=== PATIENT | female | born 1935 | race Caucasian/White ===

== ENCOUNTER 2022-10-19 20:37 | Emergency (ER) | payer MEDICARE, SELFPAY ==
--- NOTE | ~2022-10-19 | XR_ITS ---
EXAMINATION: XR chest 2V DATE: 10/19/2022 21:43 INDICATION: Chest pain. TECHNIQUE: Frontal and lateral views of the chest were obtained on 3 radiographs. COMPARISON: Chest single view 04/18/2018 FINDINGS: There is no pneumonia, pleural effusion, or pneumothorax. Cardiomegaly is noted. IMPRESSION: 1. Cardiomegaly. Reviewed, dictated and finalized at location E. IMPRESSION: 1. Cardiomegaly.
--- NOTE | 2022-10-19 20:39 | ECG_ITS ---
Measurements Intervals [place] Rate: 86 P: [place]: 0 QRS: 30 QRSD: 81 T: 131 QT: 372 QTc: 445 Interpretive Statements ATRIAL FIBRILLATION NONSPECIFIC ST & T-WAVE ABNORMALITY ABNORMAL ECG NO PREVIOUS ECG AVAILABLE FOR COMPARISON Electronically Signed On 10-20-2022 11:59:08 CDT by Lisandro Coleman M.D.
[2022-10-19 20:51] VITALS: BP 150/66; PULSE 81; RESP 14; TEMP 36.4; O2SAT 98
[2022-10-19 21:13] LABS: Prothrombin Time 13.6 Seconds (11.1-14.7)
[2022-10-19 21:19] LABS: Alanine Aminotransferase 22 U/L (6-35); Albumin Level 4.3 g/dL (3.5-5.1); Alkaline Phosphatase 64 U/L (38-126); Anion Gap 7 mmol/L (8-16); Aspartate Amino Transferase 31 U/L (14-36); Bilirubin,Total 1.4 mg/dL (0.2-1.3); Blood Urea Nitrogen 27 mg/dL (7-17); Calcium 9.7 mg/dL (8.4-10.2); Carbon Dioxide 26 mmol/L (22-30); Chloride 104 mmol/L (98-107); Estimated Glomerular Filt Rate > 60; Glucose 106 mg/dL (65-110); Lipase 122 U/L (23-300); Sodium 137 mmol/L (137-145)
[2022-10-19 21:30] LABS: Troponin I < 0.012 ng/mL (0.000-0.034)
[2022-10-19 21:34] LABS: Basophils Absolute Auto 0.1 K/mm3 (0.0-0.1); Basophils Percent Auto 1.2 % (0.2-1.2); Eosinophils Absolute Auto 0.2 K/mm3 (0-0.3); Hematocrit 44.4 % (37.0-47.0); Hemoglobin 14.3 g/dL (12.0-15.0); Immature Granulocyte Absolute 0.01 K/mm3 (0.00-0.031); Immature Granulocyte Percent A 0.1 % (0-0.5); Lymphocytes Absolute Auto 2.11 K/mm3 (0.9-3.2); Lymphocytes Percent Auto 31.3 % (18.3-44.2); Mean Corpuscular HGB Conc 32.2 g/dl (32-36); Mean Corpuscular Hemoglobin 30.1 pg (26-34); Mean Corpuscular Volume 93.5 fl (80-100); Mean Platelet Volume 10.2 fl (7.4-10.4); Monocytes Absolute Auto 0.9 K/mm3 (0.1-0.6); Monocytes Percent Auto 13.1 % (2.6-8.5); Neutrophils Absolute Auto 3.5 K/mm3 (1.3-6.7); Neutrophils Percent Auto 51.3 % (45.5-73.1); Platelet Count Result 216 k/mm3 (150-375); Red Blood Count 4.75 M/mm3 (4.2-5.4); Red Cell Distribution Width 13.2 % (11.5-14.5); White Blood Count 6.7 K/mm3 (4.5-10.0)
[2022-10-19 23:59] VITALS: BP 143/81; PULSE 77; RESP 17; O2SAT 98
[2022-10-20 00:16] LABS: Troponin I < 0.012 ng/mL (0.000-0.034)
--- NOTE | 2022-10-20 00:43 | ED.GENADULT ---
HPI - General Adult General Chief complaint: Chest Pain Stated complaint: Chest pain Time Seen by Provider: 10/19/22 23:30 History of Present Illness HPI narrative: Patient 87-year-old female who presents the emergency department with chief complaint of chest discomfort. Patient reports that 11:00 today she started having some sharp type pains in her chest that are worse with inspiration. Patient reports she does have prior history of cardiac disease has had an NV in the past and is also had 3 stents placed. Patient reports this feels different than whenever she had cardiac disease reports he has been a little bit more active lately the patient does report that she has had no shortness of breath denies diaphoresis Related Data Home Medications Medication Instructions Recorded Confirmed amlodipine 5 mg tablet 5 mg PO DAILY 07/08/22 07/08/22 apixaban 2.5 mg tablet (Eliquis) 2.5 mg PO BID 07/08/22 07/08/22 losartan 50 mg tablet 50 mg PO DAILY 07/08/22 07/08/22 metoprolol succinate 50 mg 50 mg PO DAILY 07/08/22 07/08/22 tablet,extended release 24 hr [id number]-wwq-yitt 18 mg-FA 400 tablet PO 07/08/22 07/08/22 mcg-calcium 500 mg-vit K 50 mcg tablet (Women's Multivitamin) nitroglycerin 0.4 mg sublingual 0.4 mg sublingual Q5M PRN 07/08/22 07/08/22 tablet potassium chloride 10 mEq 10 meq PO BID 07/08/22 07/08/22 capsule,extended release timolol maleate 0.5 % eye drops 1 drp EACH EYE Q12H 07/08/22 07/08/22 Allergies Allergy/AdvReac Type Severity Reaction Status Date / Time amoxicillin Allergy Intermediate Unknown Verified 07/08/22 11:27 meperidine Allergy Intermediate Unknown Verified 06/04/18 19:37 propoxyphene Allergy Intermediate Unknown Verified 06/04/18 19:37 Sulfa (Sulfonamide Allergy Intermediate Unknown Verified 06/04/18 19:37 Antibiotics) acetaminophen AdvReac Severe Abdominal Verified 07/08/22 11:27 Pain atorvastatin AdvReac Severe Muscle Pain Verified 07/08/22 11:27 pravastatin AdvReac Severe Muscle Pain Verified 07/08/22 11:27 Review of Systems Review of Systems: A 10 system review of systems was completed on the patient and is negative except for what is stated in the HPI. Nursing and ancillary documentation was reviewed. [facility] Past Medical History Medical History AMI (acute myocardial infarction) Atrial fibrillation CAD (coronary artery disease) Multiple stents, seeing Dr. Erazo [facility] Glaucoma Hemiparesis due to recent stroke Hypertension Hypokalemia HUDSON (obstructive sleep apnea) Surgical History Surgical History History of coronary artery stent placement History of total bilateral knee replacement Social History Social History Smoking status: Never smoker Alcohol intake: never Substance use: never Substance use type: does not use Additional living arrangements comments: Living with her daughter at this time Exam Narrative: GENERAL: Well-appearing, well-nourished, and in no acute distress. HEAD: Normocephalic, atraumatic. EYES: PERRLA and EOMI. ENT: Nares clear, no rhinorrhea or epistaxis. Mucous membranes moist. NECK: Supple. CHEST: Clear to auscultation. No respiratory distress. Chest wall is tender to palpation on the left and right sternal borders HEART: Regular rate and rhythm. No murmur heard. Normal peripheral pulses. ABDOMEN: Soft, nontender, nondistended, normal active bowel sounds. EXTREMITIES: Normal range of motion. No edema. SKIN: Warm, dry, no rash. NEURO: No focal deficits. Alert and oriented x3. PSYCH: Normal mood and affect. Course Vital Signs Vital signs: Vital Signs Temperature 36.4 C 10/19/22 20:51 Pulse Rate 81 10/19/22 20:51 Respiratory Rate 14 10/19/22 20:51 Blood Pressure 150/66 H 10/19/22 20:51 Pulse Oximetry 98 09/23
[2022-10-20 01:06] VITALS: BP 143/95; PULSE 74; RESP 17; O2SAT 98
== END 2022-10-20 02:01 | disposition home or self-care (01) ==
PROVIDERS: Emergency Provider Emergency Medicine; PCP Family Medicine
DX: R07.9 Chest pain, unspecified (principal); I48.91 Unspecified atrial fibrillation; Z79.01 Long term (current) use of anticoagulants; I25.2 Old myocardial infarction; I25.10 Atherosclerotic heart disease of native coronary artery without angina pectoris; I10 Essential (primary) hypertension; G47.30 Sleep apnea, unspecified
CPT/HCPCS: 36415; 71046; 80053; 83690; 84484; 85025; 85610; 85730; 93005; 99284

== ENCOUNTER 2023-01-19 17:51 | Emergency (ER) | payer MEDICARE, SELFPAY ==
[2023-01-19] VITALS (9 sets, daily range): BP systolic 148–189; BP diastolic 86–94; PULSE 92–108; RESP 16–30; TEMP 37.1; O2SAT 94–98
--- NOTE | ~2023-01-19 | CT_ITS ---
EXAMINATION: CT abdomen pelvis w con DATE: 01/19/2023 20:35 INDICATION: llq abd pain TECHNIQUE: Computed tomography (CT) of the abdomen and pelvis was performed with 100 mL Omnipaque-350 intravenous contrast. Automated exposure control and iterative reconstruction technique were employe d. The dose-length product was 316.71 mGy-cm. COMPARISON: None. FINDINGS: Lower thorax: Cardiomegaly. Heavy coronary artery calcification. Liver: Normal. Biliary/Gallbladder: Gallbladder is normal. No bile duct dilation. Pancreas: 1.7 cm cystic lesion in the pancreatic body Spleen: Normal. Adrenals:No mass. Kidneys: Mild left perinephric stranding and subtle patchy renal parenchymal enhancement. No obstruct ing calculi. No suspicious masses. No hydronephrosis. Left ureteral urothelial hyperemia. GI tract: Mild distal esophageal and gastric wall edema. Short segment dilation of the distal sigmoid just proximal to the rectum, no wall thickening, surrounding inflammatory change, mass, or other ass ociated abnormality, likely a chronic finding. No small bowel dilation. Normal appendix. Diverticulos is without diverticulitis. Mesentery/Peritoneum: No ascites, mass, or free air. Retroperitoneum: No mass. Atherosclerotic abdominal aortic and/or arterial calcifications. Pelvis: Mild bladder wall edema. Absent uterus. Normal right ovary. Simple 3.6 cm left ovarian cyst. Soft Tissues: Soft tissues and body wall unremarkable. Bones: No acute osseous finding. IMPRESSION: Mild esophagitis/gastritis. Cystitis with ascending infection and likely pyelonephritis in the left. 1.7 cm cystic lesion in the pancreatic body. Consider follow-up CT pancreas in 2 years, depending on the patient's overall health and preferences, and only advised if they would be a surgical candidate. 3.6 cm left ovarian cyst. Recommend outpatient pelvic ultrasound for further characterization. Reviewed, dictated and finalized at location K. RLAY STITCHER IMPRESSION: Mild esophagitis/gastritis. Cystitis with ascending infection and likely pyelonephritis in the left. 1.7 cm cystic lesion in the pancreatic body. Consider follow-up CT pancreas in 2 years, depending on the patient's overall health and preferences, and only ad vised if they would be a surgical candidate. 3.6 cm left ovarian cyst. Recommend outpatient pelvic ultrasound for further ch aracterization.
[2023-01-19 18:57] LABS: Basophils Absolute Auto 0.1 K/mm3 (0.0-0.1); Basophils Percent Auto 0.5 % (0.2-1.2); Eosinophils Percent Auto 0.1 % (0-4.4); Hematocrit 46.2 % (37.0-47.0); Hemoglobin 15.1 g/dL (12.0-15.0); Immature Granulocyte Absolute 0.05 K/mm3 (0.00-0.031); Immature Granulocyte Percent A 0.3 % (0-0.5); Lymphocytes Absolute Auto 1.06 K/mm3 (0.9-3.2); Lymphocytes Percent Auto 6.8 % (18.3-44.2); Mean Corpuscular HGB Conc 32.7 g/dl (32-36); Mean Corpuscular Hemoglobin 29.6 pg (26-34); Mean Corpuscular Volume 90.6 fl (80-100); Monocytes Absolute Auto 1.4 K/mm3 (0.1-0.6); Monocytes Percent Auto 9.1 % (2.6-8.5); Neutrophils Absolute Auto 12.9 K/mm3 (1.3-6.7); Neutrophils Percent Auto 83.2 % (45.5-73.1); Platelet Count Result 219 k/mm3 (150-375); Red Cell Distribution Width 12.8 % (11.5-14.5); White Blood Count 15.6 K/mm3 (4.5-10.0)
[2023-01-19 19:12] LABS: Alanine Aminotransferase 19 U/L (6-35); Albumin Level 4.4 g/dL (3.5-5.1); Alkaline Phosphatase 88 U/L (38-126); Anion Gap 9 mmol/L (8-16); Aspartate Amino Transferase 31 U/L (14-36); Blood Urea Nitrogen 18 mg/dL (7-17); Calcium 9.8 mg/dL (8.4-10.2); Carbon Dioxide 26 mmol/L (22-30); Chloride 101 mmol/L (98-107); Estimated CRCL calculation 39 ml/min; Estimated Glomerular Filt Rate > 60; Glucose 125 mg/dL (65-110); Lipase 45 U/L (23-300); Potassium 3.9 mmol/L (3.4-5.0); Sodium 136 mmol/L (137-145)
--- NOTE | 2023-01-19 20:03 | ED.ABDPAIN ---
HPI - Abdominal Pain General Chief Complaint: Abdominal Pain Stated Complaint: abd pain Time Seen by Provider: 01/19/23 19:56 History of Present Illness HPI narrative: Pt presents with LLQ abdominal pain sicne last night. Pt denies fever or bloody stools. Pt had diverticulitis 30 yrs ago and this feels similar. Related Data Home Medications Medication Instructions Recorded Confirmed amlodipine 5 mg tablet 5 mg PO DAILY 07/08/22 07/08/22 apixaban 2.5 mg tablet (Eliquis) 2.5 mg PO BID 07/08/22 07/08/22 losartan 50 mg tablet 50 mg PO DAILY 07/08/22 07/08/22 metoprolol succinate 50 mg 50 mg PO DAILY 07/08/22 07/08/22 tablet,extended release 24 hr ciafxmqd-adi-omur 18 mg-FA 400 tablet PO 07/08/22 07/08/22 mcg-calcium 500 mg-vit K 50 mcg tablet (Women's Multivitamin) nitroglycerin 0.4 mg sublingual 0.4 mg sublingual Q5M PRN 07/08/22 07/08/22 tablet potassium chloride 10 mEq 10 meq PO BID 07/08/22 07/08/22 capsule,extended release timolol maleate 0.5 % eye drops 1 drp EACH EYE Q12H 07/08/22 07/08/22 Allergies Allergy/AdvReac Type Severity Reaction Status Date / Time amoxicillin Allergy Intermediate Unknown Verified 01/07/23 11:06 meperidine Allergy Intermediate Unknown Verified 01/07/23 11:06 propoxyphene Allergy Intermediate Unknown Verified 01/07/23 11:06 Sulfa (Sulfonamide Allergy Intermediate Unknown Verified 01/07/23 11:06 Antibiotics) acetaminophen AdvReac Severe Abdominal Verified 01/07/23 11:06 Pain atorvastatin AdvReac Severe Muscle Pain Verified 01/07/23 11:06 pravastatin AdvReac Severe Muscle Pain Verified 01/07/23 11:06 Review of Systems Review of Systems: All systems reviewed & are unremarkable except as noted in HPI and below PMFSH Past Medical History Medical History AMI (acute myocardial infarction) Atrial fibrillation CAD (coronary artery disease) Multiple stents, seeing Dr. Erazo [facility] Glaucoma Hemiparesis due to recent stroke Hypertension Hypokalemia HUDSON (obstructive sleep apnea) Surgical History Surgical History History of coronary artery stent placement History of total bilateral knee replacement Social History Social History (Updated 01/07/23 @ 10:57 by Jessica Castellanos MA) Smoking status: Never smoker Alcohol intake: never Substance use: never Substance use type: does not use Lack of Transportation: No Lack of Food: Never True Current Housing: I Have Housing Concerned About Future Housing: No Difficulty Paying Gas/Electric Bills: No Difficulty Paying for Meds: No Currently Unemployed: No Education: Decline to Answer Difficulty w/ Childcare or Family Care: Decline to Answer Living arrangements: with family Additional living arrangements comments: Living with her daughter at this time Occupation/Education: retired Spiritual care concerns: No Agree to blood products: Yes Exam Const: General: healthy appearing and no acute distress Nutritional Appearance: well nourished Orientation/consciousness: patient oriented x3 Limitations: no limitations Resp: Effort & Inspection: normal respiratory effort Auscultation: clear to auscultation bilaterally Cardio: Rate: regular rate Rhythm: regular rhythm GI: GI Palp: Yes Soft to palpation, Yes Tenderness to palpation present (GI) (llq), No Guarding due to palpation present (GI) and No Rigid due to palpation Auscultation: normal bowel sounds Skin: General skin exam: normal color Wounds: no wounds Neuro: General: patient oriented x3, moves all extremities and no focal motor deficits Cranial nerves: Yes Nystagmus not present Speech: normal speech Extrem: General: normal to inspection and no clubbing, cyanosis or edema Psych: Mental Status: mental status grossly normal Affect: normal affect Attitude: cooperative Course Vital Signs Vital signs: Vital Sign
[2023-01-19] MEDS: MORPHINE SULFATE (*CRX) 4 MG/ML INJ 2 MG IV PUSH (20:11)
[2023-01-19] MEDS: ONDANSETRON INJ 4 MG/2 ML VIAL IV PUSH (20:11)
[2023-01-19 20:37] LABS: Bacteria Urine 4+ /hpf; RBC Urine 51-100 /hpf (0-2); Squamous Epithelial Cell Urine Moderate /hpf (Few); WBC Clumps Urine Present /HPF; WBC Urine >100 /hpf
[2023-01-19 20:43] LABS: Appearance Urine Cloudy (Clear); Blood Urine 2+ (Negative); Color Urine Yellow (Yellow); Glucose Urine UA Negative (Negative); Ketones Urine 2+ mg/dL (Negative); Protein Urine 2+ mg/dL (Negative); Specific Grav Ur 1.025 (1.001-1.035); pH Urine 6.5 (5.0-9.0)
[2023-01-19 20:44] LABS: Bilirubin Urine Negative (Negative); Leukocyte Esterase Ur 1+ LEU/UL (Negative); Nitrate Urine Positive (Negative)
[2023-01-19 20:45] LABS: Add Urine Microscopic? YES
[2023-01-19 21:06] LABS: Influenza A QL RT-PCR Negative (Negative); Influenza B QL RT-PCR Negative (Negative); RSV RNA, RT-PCR Negative (Negative); SARS-CoV-2 RNA PCR Negative (Negative)
== END 2023-01-19 21:50 | disposition home or self-care (01) ==
PROVIDERS: Emergency Provider Emergency Medicine; PCP Family Medicine
DX: N30.00 Acute cystitis without hematuria (principal); N83.202 Unspecified ovarian cyst, left side; K86.2 Cyst of pancreas; Z20.822 Contact with and (suspected) exposure to COVID-19; I25.10 Atherosclerotic heart disease of native coronary artery without angina pectoris; I48.91 Unspecified atrial fibrillation; I10 Essential (primary) hypertension; G47.33 Obstructive sleep apnea (adult) (pediatric); Z95.5 Presence of coronary angioplasty implant and graft; Z96.653 Presence of artificial knee joint, bilateral; K20.90 Esophagitis, unspecified without bleeding; K29.70 Gastritis, unspecified, without bleeding
CPT/HCPCS: 36415; 74177; 80053; 81001; 83690; 85025; 87077; 87086; 87186; 87637; 96374; 96375; 99284; J2270; J2405; Q9967

== ENCOUNTER 2024-04-06 17:28 | Outpatient (CLI) | payer MEDICARE, SELFPAY ==
--- OUTSIDE RECORDS SUMMARY | 2024-04-06 17:32 | XMS_ITS | Encounter Summary ---
Author Organization [facility] Address [address] [place] [address] Care Team Providers Care Academic Services Coordinator Name Role Phone Evens Mattson MD Primary Care Provider Unavailab gege Vega MD, Robert Unavailable [phone] Janee Ahn ANP-BC Unavailable [phone] Tanvi Cordova NP Unavailable [phone] Wilbert Kimbrough MD Unavailable [phone] Spencer Nguyen MD Unavailable Unavailable Tahir WigginsC Unavailable [phone] Carmenza Fernandez MD Primary Care Provider [phone] Encounter Details Date Type Department Care Team (Latest Contact Info) Description 12/28/2017 Abstract [facility] Adelia Abarca MD Social History Tobacco Use Types Packs/Day Years Used Date Smoking Tobacco: Never Smokeless Tobacco: Never Alcohol Use Standard Drinks/Week Comments Yes 0 (1 standard drink = 0.6 oz pur e alcohol) Wine 1 or 2 times per week Comments Unknown Sex and Gender Information Value Date Recorded Sex Assigned at Not on file Legal Sex Female 7:08 PM CDT Gender Identity Not on file Sexual Orientation Not on file Occupation Industry Job Start Date Job End Date Retired Not on file Not on file Not on file Not on file Not on file Not on file Not on file documented as of this encounter Plan of Treatment Upcoming Encounters Date Type Department Care Team (Late st Contact Info) Description 04/14/2024 2:00 PM MOTOR POLARIZER Office Visit [facility]-[address] [address] Juan Luis Erazo MD [address] [facility] [address] [place] [address] documented as of this encounter Visit Diagnoses Not on filedocumented in this encounter Care Teams Academic Services Coordinator Relationship Specialty Start Date End Date Evens Mattson MD PCP - General INTERNAL MEDICINE 02/28/16 09/30/23 Carmenza Fernandez MD [address] [place] [address] PCP - General FAMILY PRACTICE 10/01/23 Luis Angel Moreno MD CARDIOVASCULAR DISEASE 02/28/16 Janee Ahn, ANP- [address] [facility] [address] [place] [address] NURSE PRACTITIONER 02/28/16 Tanvi Cordova NP [address] [facility] [address] [place] [address] NURSE PRACTITIONER 04/27/16 Wilbert Kimbrough MD [address] [facility] [address] [place] [address] CARDIOVASCULAR DISEASE 03/15/17 Spencer Nguyen MD [address] [facility] [address] [place] [address] EP Land [employer] Rent[employer] Manager CLINICAL CARDIAC ELECTROPHYSIOLOGY 03/22/17 Tahir Wiggins PA-C [address] [place] [address] Electrophysiology 03/22/17 documented as of this encounter
--- OUTSIDE RECORDS SUMMARY | 2024-04-06 17:32 | XMS_ITS | Continuity of Care Document ---
Author Organization [facility] Address [address] [place] [address] Phone Care Team Providers Care Scrap Piler Name Role Phone Jose Alonzo MD Unavailable Unavailable Allergies, Adverse Reactions, Alerts Substance Reaction Status Criticality MEPERIDINE HCL Active No Informatio n Sulfa (Sulfonamide Antibiotics) Active No Information amoxicillin Active No Information Medications Medication Instructions Dosage Effective Dates (start - stop) Status Comments Norvasc 5 mg tablet take 1 tablet by oral route every day 5 MG - Active Eliquis 2.5 mg tablet take 1 tablet by oral route 2 times every day 2.5 MG - Active Neurontin 100 mg capsule take 1 Capsule by oral route 2 times every day 100 MG - Active Neurontin 300 mg capsule take 1 capsule by oral route every bedtime 300 MG - Active avoid driving or operate machines nitroglycerin 0.[address] 1 tablet by sublingual route at the 1st sign of attack; may repeat every 5 min until relief; if pain persists after 3 tablets in 15 min, prompt medical attention is recommended 0.4 MG - Active vitamin A 10,000 unit capsule take 1 capsule by oral route every day [address]19 UNITS - Active Crestor 40 mg tablet take 1 tablet by oral route every day 40 MG - Active potassium chloride ER 20 mEq tablet,extended release take 1 tablet by oral route every day with food 20 MEQ - Active metoprolol succinate ER 50 mg tablet,extended release 24 hr take 1 tablet by oral route every day 50 MG - Active losartan 50 mg tablet take 1 tablet by oral route every day 50 MG - Active Procedures Procedure Date OFFICE/OUTPATIENT VISIT, [facility] Advance Directives Directive Yes / No Effective Date File Name No Information Encounters Encounter Description Practice Location Reason(s) For Visit Diagnoses Date Provider Providers Copied on Encounter [facility], [address], [place], [place], [id number], tel:[phone] [facility] No Information 1 Clinton Garcia. [address], [place], [place], [id number] , [place]. tel:[phone] OFFICE/OUTPA TIENT VISIT, [facility] [place], [facility], [address], [place], [place], [id number], tel:[phone] [facility] stroke1 (chief complaint) Afib1 (chief complaint) incontinen ce1 (chief complaint) HLP (chief complaint) neuropathy 1 (chief complaint) StrokeUrge incontinenceHyperli pidemiaEssential (primary) hypertensionInsomni aNeuropathyAtrial fibrillation 1 Clinton Garcia. [address], [place], [place], [id number] , [place]. tel:[phone] Family History Family Member Type Diagnosis Age At Onset No Information Payers Payer name Insurance type Covered constitution party ID Authoriza tion(s) No Information Social History Type Description Quantity Date Captured Comments Sex Female Smoking Status No Information Chief Complaint And Reason For Visit No Information Plan Of Treatment Date Type Action Status Referral Ordered: Physical Therapy (related to Stroke) ordered Referral Referred To: Physical Therapy Ordered: Referrals: Physical Therapy. 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 Pt ambulate with walker. Pt just moved in with her daughter locally from out of town and she wants to continue home PT and OT. Pt denies any speech difficulty Afib1 Pt has chronic a fib with history of CAD with stenting x 4. . Pt is on norvasc, metoprolol, crestor, losartan, eliquis. Pt sees cardiology. Pt denies any chest pain or sob or palpitation incontinence1 Pt has chronic u rge incontinence. Pt denies any stress incontinence. Pt denies any urinary symptoms Pt wears pad and diapers . HLP Pt has HLP. Pt t akes crestor .pt denies any myalgia neuropathy1 Pt has periphera l neuropathy with insomnia Pt takes neurontin TID which supposes to help her with insomnia as well. Pt states that it really has not helped much of her insomnia. Instructions Date Instruction Additional Infor mation No Information Assessments Type Assessment Date No Information
--- OUTSIDE RECORDS SUMMARY | 2024-04-06 17:32 | XMS_ITS | Encounter Summary ---
Author Organization [facility] Address [address] [place] [address] Care Team Providers Care Revenue Tax Specialist Name Role Phone Evens Mattson MD Primary Care Provider Unavailab gege Vega MD, Robert Unavailable [phone] Janee Ahn ANP-BC Unavailable [phone] Tanvi Cordova NP Unavailable [phone] Wilbert Kimbrough MD Unavailable [phone] Spencer Nguyen MD Unavailable Unavailable Tahir WigginsC Unavailable [phone] Carmenza Fernandez MD Primary Care Provider [phone] Encounter Details Date Type Department Care Team (Late st Contact Info) Description 05/08/2017 Abstract [facility] [address] [place] [address] , Generic Conversion, Social History Tobacco Use Types Packs/Day Years [...] st Contact Info) Description 04/14/2024 2:00 PM PLATE DRILLER Office Visit [facility] [address] Juan Luis Erazo MD 3 [facility] [address] [place] [address] documented as of this encounter Visit Diagnoses Not on filedocumented in this encounter Care Teams Revenue Tax Specialist Relationship Specialty Start Date End Date Evens Mattson MD PCP - General INTERNAL MEDICINE 02/28/16 09/30/23 Carmenza Fernandez MD [address] [place] [address] PCP - General FAMILY PRACTICE 10/01/23 Luis Angel Moreno MD CARDIOVASCULAR DISEASE 02/28/16 Janee Ahn, ANP- [address] [address] NURSE PRACTITIONER 02/28/16 Tanvi Cordova NP [address] [address] NURSE PRACTITIONER 04/27/16 Wilbert Kimbrough MD 619 [facility] [address] [address] CARDIOVASCULAR DISEASE 03/15/17 Spencer Nguyen MD [address] [address] EP Events And Promotions Assistant CLINICAL CARDIAC ELECTROPHYSIOLOGY 03/22/17 Tahir Wiggins PA-C [address] [place] [phone] Electrophysiology 03/22/17 documented as of this encounter
--- OUTSIDE RECORDS SUMMARY | 2024-04-06 17:32 | XMS_ITS | Continuity of Care Document ---
Author Organization [facility] Address [address] [facility] [address] [place] [address] Phone Care Team Providers Care Key Attendant Name Role Phone Chad PT, DPT, Sd Unavailable Unavailable Procedures Procedure Date Therapeutic Activities Therapeutic Exercise Therapeutic Activities Therapeutic Exercise Therapeutic Activities Therapeutic Exercise Therapeutic Activities Therapeutic Exercise PT Evaluation Low Complexity Therapeutic Activities Advance Directives Directive Yes / No Effective Date File Name No Information Encounters Encounter Description Practice Location Reason(s) For Visit Diagnoses Date Provider Providers Copied on Encounter [facility], [address] [address], [place], [place], [id number], tel:[phone] [facility] No Information Chad Beaver. . Referring Provider: Soniya Zurita [facility], [place], [address]. tel:[phone] [facility] [address] [place] [address], [id number], tel:[phone] [facility] No Information Chad Beaver. . Referring Provider: Jose Alonzo, [address] [facility] [address], [place], [address]. tel:[phone] [facility] [address] [address], [place], [place], [id number], tel:[phone] [facility] No Information Chad Beaver. . Referring Provider: Jose Alonzo, [address] [facility] [address], [place], [address]. tel:[phone] [address], [place], [place], [id number], tel:[phone] [facility] No Information Chad Beaver. . Referring Provider: Jose Alonzo, [address] [facility] [address], [place], [address]. tel:[phone] [facility] [address], [place], [place], [id number], tel:[phone] [facility] No Information Chad Beaver. . Referring Provider: Jose Alonzo, [address] [facility] [address], [place], [address]. tel:[phone] Family History Family Member Type Diagnosis Age At Onset No Information Payers Payer name Insurance type Covered republican ID Authorjimia iker(s) Medicare [place] MB [id number] [facility] [id number] Social History Type Description Quantity Date Captured [...]
--- OUTSIDE RECORDS SUMMARY | 2024-04-06 17:33 | XMS_ITS | Encounter Summary ---
Author Organization [facility] Address [address] [place] [address] Care Team Providers Care Network Design Architect Name Role Phone Evens Mattson MD Primary Care Provider Unavailab gege Vega MD, Robert Unavailable [phone] Janee Ahn ANP-BC Unavailable [phone] Tanvi Cordova NP Unavailable [phone] Wilbert Kimbrough MD Unavailable [phone] Spencer Nguyen MD Unavailable Unavailable Tahir WigginsC Unavailable [phone] Carmenza Fernandez MD Primary Care Provider [phone] Encounter Details Date Type Department Care Team (Late st Contact Info) Description 10/18/2014 Abstract [facility] [address] [place] [address] Luis Angel Moreno MD [address] [facility] [address] [place] [phone] Social History Tobacco Use Types Packs/Day Years Used Date Smoking Tobacco: Never Alcohol Use Standard Drinks/Week Comments [...] st Contact Info) Description 04/14/2024 2:00 PM SOLVENT STATION ATTENDANT Office Visit [facility] [address] Juan Luis Erazo MD 3 [facility] [address] [place] [address] documented as of this encounter Visit Diagnoses Not on filedocumented in this encounter Care Teams Network Design Architect Relationship Specialty Start Date End Date Evens Mattson MD PCP - General INTERNAL MEDICINE 02/28/16 09/30/23 Carmenza Fernandez MD [address] [place] [address] PCP - General FAMILY PRACTICE 10/01/23 Luis Angel Moreno MD CARDIOVASCULAR DISEASE 02/28/16 Janee Ahn, [facility]- [address] [address] NURSE PRACTITIONER 02/28/16 Tanvi Cordova NP 619 [facility] [address] [address] NURSE PRACTITIONER 04/27/16 Wilbert Kimbrough MD [address] [phone] CARDIOVASCULAR DISEASE 03/15/17 Spencer Nguyen MD [address] [facility] [address] [place] [address] EP Seo Associate CLINICAL CARDIAC ELECTROPHYSIOLOGY 03/22/17 Tahir Wiggins PA-C [address] [place] [phone] Electrophysiology 03/22/17 documented as of this encounter
--- OUTSIDE RECORDS SUMMARY | 2024-04-06 17:33 | XMS_ITS | Clinical Summary ---
Author Organization [facility] Address [address] [place] [address] Care Team Providers Care Binding Dyer Name Role Phone Carmenza Fernandez MD Primary Care Provider [phone] Allergies Active Allergy Reactions Criticality Noted Date Comments Amoxicillin Nausea & Vomiting Low 06/01/2023 Atorvastatin Muscle pain Medium 06/01/2023 Meperidine Nausea & Vomiting Low 06/01/2023 Propoxyphene Nausea & Vomiting Low 06/01/2023 Sulfa Itching Low 06/01/2023 Sertraline Dizziness Low 06/01/2023 Medications amLODIPine (NORVASC) 5 mg tablet Take 1 tablet (5 mg total) by mouth daily Active multivitamin-mi nerals-lutein tablet Take 1 tablet by mouth daily Active apixaban (ELIQUIS) 2.5 mg tablet Take 1 tablet (2.5 mg total) by mouth 2 (two) times a day Active losartan (COZAAR) 50 mg tablet Take 1 tablet (50 mg total) by mouth daily Active metoprolol XL (TOPROL-XL) 50 mg extended release tablet Take 1 tablet (50 mg total) by mouth daily Active nitroglycerin (NITROSTAT) 0.[address] 1 tablet (0.4 mg total) under the tongue every 5 (five) minutes as needed for chest pain Active potassium chloride ER 10 mEq CR tablet Take 1 tablet/capsule (10 mEq total) by mouth 2 (two) times a day Active rosuvastatin (CRESTOR) 10 mg tablet Take 1 tablet (10 mg total) by mouth every other day (patient takes Wednesday, Wednesday, Wednesday) Active timolol (TIMOPTIC) 0.5 % ophthalmic solution Administer 1 drop into both eyes nightly Active Active Problems No known active problems Encounters Date Type Department Care Team Description 03/06/2024 10:30 AM ACADEMIC COORDINATOR Office Visit [facility] [address] [place] [address] [address] [place] [address] Leena Logan MD Hypersomnia with sleep apnea (Primary Dx); HUDSON (obstructive sleep apnea); Paradoxical insomnia 03/06/[address] [facility] [address] [place] [address] [address] [place] [address] Leena Logan MD HUDSON (obstructive sleep apnea) (Primary Dx) from Last 3 Months Social History Tobacco Use Types Packs/Day Years Used Date Smoking Tobacco: Never Assessed Smokeless Tobacco: Never Tobacco Cessation:Counseling Given: Not Answered Personal Safety Answer Date Recorded Have you ever been in or are you currently in a harmful physical or emotional relationship or is someone making you feel afraid or unsafe? Denies 06/01/2023 Comments Unknown Sex and Gender Information Value Date Recorded Sex Assigned at Not on file Legal Sex Female 12:41 PM CDT Gender Identity Not on file Sexual Orientation Not on file Obstetrics History Last Filed Vital Signs Vital Sign Reading Time Taken Comments Blood Pressure 142/80 03/06/2024 10:45 AM ACADEMIC COORDINATOR Pulse 74 03/06/2024 10:45 AM ACADEMIC COORDINATOR Temperature 36.6 C (97.9 F) 06/01/2023 9:39 AM CDT Respiratory Rate 16 06/01/2023 12:00 PM CDT Oxygen Saturation 98% 03/06/2024 10:45 AM ACADEMIC COORDINATOR Inhaled Oxygen Concentration - - Weight 68 kg (149 lb 14.6 oz) 06/01/2023 9:39 AM CDT Height 157.5 cm (5' 2 ) 03/06/2024 10:45 AM ACADEMIC COORDINATOR Body Mass Index - - Plan of Treatment Health Maintenance Due Date Last Done Comments Depression Screening 1935 Fall Risk Assessment 1935 DTaP/Tdap/Td Vaccine (1 - Tdap) 06/20/1946 Hepatitis B Screening 06/20/1953 Well Visit 65+ 06/20/2000 Zoster Vaccine (2 of 2) 03/21/2021 01/24/2021 Pneumococcal vaccine 65+ (2 of 2 - PCV) 10/21/2021 10/21/2020 Covid-19 Vaccine (2023-2 5 season) 2023 12/31/2022, 01/04/2022, 12/07/2020, Additional history exists Influenza Vaccine (#1) 2023 12/17/2022, 2021 Insurance MEDICARE [facility] [address] [facility] MEDICARE SUPPLEMENT Care Teams Binding Dyer Relationship Specialty Start Date End Date Carmenza Fernandez MD PCP - General Family Medicine 06/01/23
--- OUTSIDE RECORDS SUMMARY | 2024-04-06 17:33 | XMS_ITS | Clinical Summary ---
Author Organization [facility] Address [address] [place] [address] Care Team Providers Care Birth Certificate Clerk Name Role Phone Tiffanie Vega MD, Robert Unavailable [phone] Janee Ahn ANP-BC Unavailable [phone] Tanvi Cordova NP Unavailable [phone] Wilbert Kimbrough MD Unavailable [phone] Spencer Nguyen MD Unavailable Unavailable Tahir Wiggins PA-C Unavailable [phone] Carmenza Fernandez MD Primary Care Provider [phone] Allergies Active Allergy Reactions Criticality Noted Date Comments Amoxicillin Unknown,Nausea and Vomiting,Nausea Only Low 02/07/2016 Atorvastatin Myalgias 02/07/2016 Propoxyphene N-Apap Unknown 02/07/2016 Demerol Unknown 02/07/2016 Hydrocodone Other (see comment) 07/25/2020 Nausea and vomiting Meperidine Nausea and Vomiting,Nausea Only,Other (see comment) Low 02/07/2016 Nausea and vomiting Mirtazapine Swelling 05/10/2023 Pravastatin Unknown 02/07/2016 Propoxyphene Nausea and Vomiting Low 06/01/2023 Ramelteon Swelling High 05/10/2023 Rosuvastatin Unknown 02/07/2016 Sertraline Dizziness Low 06/01/2023 Sulfa Antibiotics Unknown,Itching,Rash High 08/27/19 10 Itching, rash, diarrhea. Medications timolol (TIMOPTIC) 0.25 % ophthalmic solution Timoptic (timolol maleate) Drops 0.25%; as directed; 0; 0; 04-Nov-2011; Active 2 Active potassium chloride CR (MICRO-K) 10 MEQ CR capsule Take 1 capsule (10 mEq total) by mouth 2 (two) times daily. 2 Active Multiple Vitamins-Glynn als (CENTRUM SILVER 50+WOMEN OR) Take 1 tablet by mouth daily. Active nitroglycerin (NITROSTAT) 0.[address] 1 tablet (0.4 mg total) under the tongue every 5 (five) minutes as needed for Chest Pain (chest pain). Max 3 tabs, then call 911 25 tablet 1 3 Active losartan (COZAAR) 50 MG tablet TAKE 1 TABLET(50 MG) BY MOUTH DAILY 90 tablet 4 Active apixaban (ELIQUIS) 5 MG tablet Take 1 tablet (5 mg total) by mouth 2 (two) times daily. 180 tablet 3 4 025 Active amLODIPine (NORVASC) 5 MG tablet TAKE 1 TABLET(5 MG) BY MOUTH DAILY 90 tablet 2 4 Active rosuvastatin (CRESTOR) 10 MG tabletIndicati ons:Hyperlipid emia TAKE 1 TABLET(10 MG) BY MOUTH EVERY OTHER DAY 45 tablet 1 4 Active metoprolol succinate ER (TOPROL-XL) 50 MG 24 hr tablet TAKE 1 TABLET(50 MG) BY MOUTH DAILY 90 tablet 5 Active metoprolol succinate ER (TOPROL-XL) 50 MG 24 hr tablet TAKE 1 TABLET(50 MG) BY MOUTH DAILY 90 tablet 1 4 025 Discontinued Active Problems Problem Noted Date Diagnosed Date Subdural hematoma 01/09/2022 Paroxysmal atrial fibrillation ([facility]) 03/29/2020 CVA (cerebral vascular accident) ([facility]) 04/05/2018 Thrombus of left atrial appendage 04/05/2018 Sepsis ([facility]) 04/05/2018 UTI (urinary tract infection) 04/05/2018 Acute ischemic stroke ([facility]) 04/05/19 19 Intracranial hemorrhage, spo ntaneous intraparenchymal, associated with arterial infarction, acute ([facility]) 04/05/2018 Current use of skilled nursing anticoagulation 018 Shortness of breath 01/26/2017 Persistent atrial fibrillation 04/07/2016 Angina, class III 04/07/2016 Dyspnea on exertion 03/22/2016 S/P coronary artery stent placement 03/16/2016 NSTEMI (non-ST elevated myoc ardial infarction) ([facility]) 01/28/2007 CAD (coronary artery disease), grayling coronary a rtery Overview (02/07/2016): s/p stent Essential hypertension Dyslipidemia Sleep apnea Overview (02/07/2016): does not wear CPAP TIA (transient ischemic attack) Left arm pain Resolved Problems Problem Noted Date Diagnosed Date Resolved Date Statin intolerance 03/16/2016 0 Family History Relation Status Comments Brother 1 Alive CABG Brother 2 Child 1 Alive Child 2 Alive Child 3 Alive Child 4 Alive Child 5 Father (Age 48) CAD, [place] Maternal Grandfather (Age 87 ) Stroke Maternal Grandmother Stroke Mother (Age 70 ) Ovarian cance r Other Other Family history i s positive for coronary artery disease Paternal Grandfather (Age 75 ) Stroke Paternal Grandmother (Age 80 ) Stroke Sister (Age 31 ) Social History Tobacco Use Types Packs/Day Years Used Date Smoking Tobacco: Never Smokeless Tobacco: Never Tobacco Cessation:Counseling Given: Not Answered Alcohol Use Standard Drinks/Week Comments Yes 0 [...] file Not on file Not on file Last Filed Vital Signs Vital Sign Reading Time Taken Comments Blood Pressure 136/70 10/01/2023 12:51 PM CDT Pulse 70 10/01/2023 12:51 PM CDT Temperature 36.4 C (97.5 F) 03/29/2020 11:09 AM COAT EXAMINER Respiratory Rate 14 03/29/2020 11:09 AM COAT EXAMINER Oxygen Saturation 98% 10/01/2023 12:51 PM CDT Inhaled Oxygen Concentration - - Weight 64 kg (141 lb 3.2 oz) 10/01/2023 12:51 PM CDT Height 157.5 cm (5' 2 ) 10/01/2023 12:51 PM CDT Body Mass Index 25.83 10/01/2023 12:51 PM CDT Plan of Treatment Upcoming Encounters Date Type Department Care Team (Late st Contact Info) Description 04/14/2024 2:00 PM COAT EXAMINER Office Visit [facility] [address] Juan Luis Erazo MD 3 [facility] [address] [place] [address] Health Maintenance Due Date Last Done Comments DTaP, Tdap and Td Vaccines (1 - Tdap) 06/20/1954 Annual Medicare Wellness Visit 06/20/2000 RSV Immunization or 60+ Years (1 - 1-dose 75+ series) 06/20/2010 ASCVD LDL 04/06/2019 04/06/2018, 08/22, 09/02/2016, Additional history exists Pneumococcal Vaccine: 65+ Years (2 of 2 - PCV) 10/21/2021 10/21/2020, 08/02/2019 COVID-19 Vaccine ( - season) 2023 01/04/2022, 12/07/2020, 04/15/2020, Additional history exists Influenza Adult (#1) 2023 12/25/2021 PHQ-2 (Physician [place]) 02/23/2024 Zoster Vaccines Completed 01/04/2022, 1204/2020, 01/24/2021 Meningococcal B Vaccine Aged Out No l onger eligible based on patient's age to complete this topic Meningococcal Vaccine Aged Out No isaías jennifer eligible based on patient's age to complete this topic RSV Immunizations Under 20 Months Aged Out No longer eligible based on patient's age to complete this topic Procedures Procedure Name Priority Date/Time Associated Diagnosis Comments LIPID PANEL Routine 04/06/2018 2:23 AM COAT EXAMINER from Last 3 Months or Most Recently Relevant to Health Maintenance Results * LIPID PANEL (04/06/2018 2:23 AM COAT EXAMINER) CHOLESTEROL 173 MG/DL 04/06/2018 7:31 AM COAT EXAMINER [facility] Comment:DESIRABLE: <200 TRIGLYCERIDES 91 MG/DL 04/06/2018 7:31 AM [facility] Comment:<150 NORMAL HDL 60 >49 MG/DL 04/06/2018 7:31 AM [facility] LDL (CALCULATED) 95 MG/DL 04/06/19 7:31 AM [facility] Comment:<100 OPTIMAL VLDL CALCULATION 18 MG/DL 04/06/19 7:31 AM [facility] Comment:REFERENCE RANGE NOT ESTABLISHED CHOL/HDL RATIO 2.9 04/06/2018 7:31 AM [facility] Comment:REFERENCE RANGE NOT ESTABLISHED LDL/HDL 1.6 04/06/2018 7:31 AM [facility] Comment:REFERENCE RANGE NOT ESTABLISHED NON HDL CHOLESTEROL 113 MG/DL 04/06/2018 7:31 AM [facility] Comment:REFERENCE RANGE NOT ESTABLISHED 04/06/2018 2:23 AM COAT EXAMINER us Galdino Go MD LABORATORY Final Resul t [facility] [address] [place] [address], [id number] from Last 3 Months or Most Recently Relevant to Health Maintenance Insurance MEDICARE MEDICARE [facility] Advance Directives Documents on File Type Date Recorded Patient Baggage Agent Expl anation Advance Directives and Living Will 04/07/2018 1:14 PM 02/23/11 LIVING WILL Power of Double Needle Operator 04/07/2018 1:14 PM Advance Directives and Living Will 05/08/2017 ADVANCE DIRECTIVE Advance Directives and Living Will 05/08/2017 LIVING WILL Advance Directives and Living Will 05/08/2017 POWER OF LIBRARY DIRECTOR FO R HEALTH CARE Advance Directives and Living Will 05/08/2017 SHORT FORM POWER OF LIBRARY DIRECTOR Advance Directives and Living Will 03/15/2017 SHORT FORM POWER OF LIBRARY DIRECTOR Advance Directives and Living Will 03/15/2017 ADVANCE DIRECTIVE Advance Directives and Living Will 03/15/2017 LIVING WILL Advance Directives and Living Will 03/15/2017 POWER OF LIBRARY DIRECTOR FO R HEALTH CARE Advance Directives and Living Will 03/12/2017 ADVANCE DIRECTIVE Advance Directives and Living Will 03/12/2017 LIVING WILL Advance Directives and Living Will 03/12/2017 POWER OF LIBRARY DIRECTOR FO R HEALTH CARE Advance Directives and Living Will 03/12/2017 SHORT FORM POWER OF LIBRARY DIRECTOR Advance Directives and Living Will 03/12/2017 ADVANCE DIRECTIVE Advance Directives and Living Will 03/12/2017 LIVING WILL Advance Directives and Living Will 03/12/2017 POWER OF LIBRARY DIRECTOR FO R HEALTH CARE Advance Directives and Living Will 03/12/2017 SHORT FORM POWER OF LIBRARY DIRECTOR Advance Directives and Living Will 01/26/2017 ADVANCE DIRECTIVE Advance Directives and Living Will 01/26/2017 SHORT FORM POWER OF LIBRARY DIRECTOR Advance Directives and Living Will 01/26/2017 LIVING WILL Advance Directives and Living Will 01/26/2017 POWER OF LIBRARY DIRECTOR FO R HEALTH CARE Advance Directives and Living Will 11/17/2016 LIVING WILL Advance Directives and Living Will 11/17/2016 ADVANCE DIRECTIVE Advance Directives and Living Will 11/17/2016 POWER OF LIBRARY DIRECTOR FO R HEALTH CARE Advance Directives and Living Will 11/17/2016 SHORT FORM POWER OF LIBRARY DIRECTOR Advance Directives and Living Will 09/16/2016 ADVANCE DIRECTIVE Advance Directives and Living Will 09/16/2016 LIVING WILL Advance Directives and Living Will 09/16/2016 POWER OF LIBRARY DIRECTOR FO R HEALTH CARE Advance Directives and Living Will 09/02/2016 POWER OF LIBRARY DIRECTOR FO R HEALTH CARE Advance Directives and Living Will 09/02/2016 ADVANCE DIRECTIVE Advance Directives and Living Will 09/02/2016 LIVING WILL Advance Directives and Living Will 05/20/2016 LIVING WILL Advance Directives and Living Will 05/20/2016 ADVANCE DIRECTIVE Advance Directives and Living Will 05/20/2016 POWER OF LIBRARY DIRECTOR FO R HEALTH CARE Advance Directives and Living Will 04/16/2016 ADVANCE DIRECTIVE Advance Directives and Living Will 04/16/2016 LIVING WILL Advance Directives and Living Will 04/16/2016 POWER OF LIBRARY DIRECTOR FO R HEALTH CARE Advance Directives and Living Will 04/13/2016 ADVANCE DIRECTIVE Advance Directives and Living Will 04/02/2016 ADVANCE DIRECTIVE Advance Directives and Living Will 06/18/2015 ADVANCE DIRECTIVE Advance Directives and Living Will 10/23/2014 ADVANCE DIRECTIVE Advance Directives and Living Will 10/18/2014 ADVANCE DIRECTIVE Advance Directives and Living Will 10/20/2013 ADVANCE DIRECTIVE Advance Directives and Living Will 09/26/2013 ADVANCE DIRECTIVE Advance Directives and Living Will 11/25/2012 ADVANCE DIRECTIVE Advance Directives and Living Will 11/08/2012 ADVANCE DIRECTIVE Advance Directives and Living Will 10/31/2012 ADVANCE DIRECTIVE Advance Directives and Living Will 10/27/2012 ADVANCE DIRECTIVE Advance Directives and Living Will 10/14/2012 ADVANCE DIRECTIVE * DNR (Latest Code Status on File) Date Activated Date Inactivated Comments 04/05/2018 6:30 AM 04/16/2018 4:34 PM Care Teams Birth Certificate Clerk Relationship Specialty Start Date End Date Carmenza Fernandez MD [address] [place] [address] PCP - General FAMILY PRACTICE 10/01/23 Luis Angel Moreno MD CARDIOVASCULAR DISEASE 02/28/16 Janee Ahn, ANP- [address] [facility] [address] [place] [address] NURSE PRACTITIONER 02/28/16 Tanvi Cordova NP [address] [place] [address] [place] [address] NURSE PRACTITIONER 04/27/16 Wilbert Kimbrough MD [address] [place] [address] [place] [address] CARDIOVASCULAR DISEASE 03/15/17 Spencer Nguyen MD [address] [facility] [address] [place] [address] EP Set And Exhibit Designer CLINICAL CARDIAC ELECTROPHYSIOLOGY 03/22/17 Tahir Wiggins PA-C [address] [place] [address] Electrophysiology 03/22/17
--- OUTSIDE RECORDS SUMMARY | 2024-04-06 17:33 | XMS_ITS | Referral Summary ---
Author Organization [facility] Address [address] [place] [address] Care Team Providers Care Car Restorer Name Role Phone Carmenza Fernandez MD Primary Care Provider [phone] Encounters Date Type Department Care Team Description 03/06/2024 Orders Only [facility] [place] Neu[place] [address] [place] [address] Leena Logan MD HUDSON (obstructive sleep apnea) (Primary Dx) 03/06/2024 10:30 AM ART HISTORIAN Office Visit [facility] [place] Neurology [address] [place] [address] Leena Logan MD Hypersomnia with sleep apnea (Primary Dx); HUDSON (obstructive sleep apnea); Paradoxical insomnia from Last 3 Months Allergies Active Allergy Reactions Criticality Noted Date [...] Active Active Problems No known active problems Social History Tobacco Use Types Packs/Day Years [...] on file Sexual Orientation Not on file Last Filed Vital Signs Vital Sign Reading Time Taken Comments Blood Pressure 142/80 03/06/2024 10:45 AM ART HISTORIAN Pulse 74 03/06/2024 10:45 AM ART HISTORIAN Temperature 36.6 C (97.9 F) 06/01/2023 9:39 AM CDT Respiratory Rate 16 06/01/2023 12:00 PM CDT Oxygen Saturation 98% 03/06/2024 10:45 AM ART HISTORIAN Inhaled Oxygen Concentration - - Weight 68 kg (149 lb 14.6 oz) 06/01/2023 9:39 AM CDT Height 157.5 cm (5' 2 ) 03/06/2024 10:45 AM ART HISTORIAN Body Mass Index - - Plan of Treatment Not on file Insurance MEDICARE [facility] MEDICARE [facility] MEDICARE SUPPLEMENT Care Teams Car Restorer Relationship Specialty Start Date End Date Carmenza Fernandez MD PCP - General Family Medicine 06/01/23
[2024-04-07 07:44] LABS: Influenza A QL RT-PCR Negative (Negative); Influenza B QL RT-PCR Negative (Negative); RSV RNA, RT-PCR Positive (Negative); SARS-CoV-2 RNA PCR Negative (Negative)
== END 2024-04-06 17:29 | disposition home or self-care (01) ==
PROVIDERS: PCP Family Medicine; Visit Provider Family Medicine
DX: J06.9 Acute upper respiratory infection, unspecified (principal)
CPT/HCPCS: 87637

== ENCOUNTER 2024-04-27 06:23 | Inpatient (IN) | payer MEDICARE, SELFPAY ==
[2024-04-27] VITALS (16 sets, daily range): BP systolic 117–146; BP diastolic 52–73; PULSE 80–109; RESP 16–22; TEMP 36.4–36.8; O2SAT 97–99; BMI 24.3
--- NOTE | ~2024-04-27 | CT_ITS ---
CT Scan of the Chest without Contrast: Clinical Indication: Cough, shortness of breath Technique: Contiguous sections were acquired throughout the chest without intravenous contrast. Dose reduction technique was used on this scan by utilizing automated exposure control and iterative recon struction technique. The dose-length product (DLP) was 155.06 mGy-cm. Findings: There is no evidence of any significant mediastinal, hilar or axillary lymphadenopathy. There are ext ensive atherosclerotic calcifications of the aorta and coronary arteries. There is mild cardiomegaly. There is no evidence of pleural or pericardial effusion. Probable small groundglass nodules in the inferomedial right lower lobe, compatible with focal infect ious/inflammatory process. Left lung clear. Images through the upper abdomen reveal no abnormalities. Impression: Small grouped groundglass nodules in the inferomedial right lower lobe, compatible with focal infecti ous/inflammatory process. Reviewed, dictated and finalized at [facility]. LIFTER Impression: Small grouped groundglass nodules in the inferomedial right lower lobe, compati ble with focal infectious/inflammatory process.
--- NOTE | ~2024-04-27 | XR_ITS ---
Portable chest x-ray Comparison: 10/19/2022 Clinical History: Influenza Findings: Lungs are clear, without focal consolidation or pleural effusion. Cardiomediastinal silho uette is stable. Bones and soft tissues are unremarkable. Impression: Clear lungs. Reviewed, dictated and finalized at location . 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
[2024-04-27 06:58] LABS: Basophils Absolute Auto 0.1 K/mm3 (0.0-0.1); Basophils Percent Auto 0.6 % (0.2-1.2); Eosinophils Percent Auto 0.5 % (0-4.4); Hematocrit 46.5 % (37.0-47.0); Hemoglobin 15.5 g/dL (12.0-15.0); Immature Granulocyte Absolute 0.02 K/mm3 (0.00-0.031); Immature Granulocyte Percent A 0.2 % (0-0.5); Lymphocytes Absolute Auto 1.04 K/mm3 (0.9-3.2); Mean Corpuscular HGB Conc 33.3 g/dl (32-36); Mean Corpuscular Hemoglobin 29.7 pg (26-34); Mean Corpuscular Volume 89.1 fl (80-100); Mean Platelet Volume 10.2 fl (7.4-10.4); Monocytes Absolute Auto 1.1 K/mm3 (0.1-0.6); Monocytes Percent Auto 13.2 % (2.6-8.5); Neutrophils Absolute Auto 5.8 K/mm3 (1.3-6.7); Neutrophils Percent Auto 72.5 % (45.5-73.1); Platelet Count Result 172 k/mm3 (150-375); Red Blood Count 5.22 M/mm3 (4.2-5.4); Red Cell Distribution Width 14.4 % (11.5-14.5)
[2024-04-27 07:09] LABS: Alanine Aminotransferase 23 U/L (6-35); Albumin Level 4.1 g/dL (3.5-5.1); Alkaline Phosphatase 69 U/L (38-126); Anion Gap 12 mmol/L (4-12); Aspartate Amino Transferase 30 U/L (14-36); Bilirubin,Total 2.9 mg/dL (0.2-1.3); Blood Urea Nitrogen 17 mg/dL (7-17); Calcium 9.5 mg/dL (8.4-10.2); Carbon Dioxide 25 mmol/L (22-30); Chloride 99 mmol/L (98-107); Estimated CRCL calculation 39 ml/min; Estimated Glomerular Filt Rate > 60; Glucose 115 mg/dL (65-110); Lipase 148 U/L (23-300); Potassium 3.2 mmol/L (3.4-5.0); Sodium 136 mmol/L (137-145)
--- NOTE | 2024-04-27 07:15 | ED_ITS ---
HPI - General Adult General Chief complaint: Upper Respiratory Infection Stated complaint: flu-like sx Time Seen by Provider: 04/27/24 06:53 History of Present Illness HPI narrative: 88 Year old female with reported recent RSV and flu presented to the emergency department for evaluation for worsening shortness of breath and fatigue. Patient reports over the last 2 weeks she had been diagnosed with flu RSV. Patient reports she did have a persisting cough did start to feel improved but then worsened approximately 3 days ago. Patient states her cough has changed and patient states she does have increased generalized weakness. Patient does live in an assisted living but feels she is too weak to care for herself today. Related Data Home Medications ?Medication ?Instructions ?Recorded ?Confirmed ?Last Taken ?Type amlodipine 5 mg tablet 5 mg PO DAILY 07/08/22 04/27/24 04/27/24 09:00 History apixaban 2.5 mg tablet (Eliquis) 2.5 mg PO Q12H 07/08/22 04/27/24 04/27/24 09:00 History losartan 50 mg tablet 50 mg PO DAILY 07/08/22 04/27/24 04/27/24 09:00 History metoprolol succinate 50 mg 50 mg PO DAILY 07/08/22 04/27/24 04/27/24 09:00 History tablet,extended release 24 hr nitroglycerin 0.4 mg sublingual 0.4 mg sublingual Q5M PRN chest 07/08/22 04/27/24 Unknown History tablet pain timolol maleate 0.5 % eye drops 1 drp EACH EYE HS 07/08/22 04/27/24 04/26/24 History Allergies Allergy/AdvReac Type Severity Reaction Status Date / Time amoxicillin Allergy Intermediate Diarrhea Verified 04/27/24 11:18 meperidine Allergy Intermediate Nausea and Verified 04/27/24 11:18 Vomiting propoxyphene Allergy Intermediate Unknown Verified 04/27/24 11:18 Sulfa (Sulfonamide Allergy Intermediate Itching Verified 04/27/24 11:18 Antibiotics) atorvastatin AdvReac Severe Muscle Pain Verified 04/27/24 11:18 pravastatin AdvReac Severe Muscle Pain Verified 04/27/24 11:18 Review of Systems 2 Review of Systems: All systems reviewed & are unremarkable except as noted in HPI and below PMFSH Past Medical History Medical History RSV infection 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 Erazo [facility] AMI (acute myocardial infarction) HUDSON (obstructive sleep apnea) Hypertension Hemiparesis due to recent stroke Atrial fibrillation Surgical History Surgical History History of coronary artery stent placement History of total bilateral knee replacement Social History Social History Smoking status: Never smoker Alcohol intake: former Substance use: never Substance use type: does not use Do You Feel Safe in your Home?: Yes Lack of Transportation: No Lack of Food: Never True Current Housing: I Have Housing Concerned About Future Housing: No Difficulty Paying Gas/Electric Bills: No Difficulty Paying for Meds: No Currently Unemployed: No Education: Decline to Answer Difficulty w/ Childcare or Family Care: No Living arrangements: with family Additional living arrangements comments: Living with her daughter at this time Occupation/Education: retired Spiritual care concerns: No Agree to blood products: Yes Exam 2 Narrative: APPEARANCE: Tired appearing HEAD: normocephalic, atraumatic. EYES: PERRLA/EOMI, conjunctivae clear. NOSE: Normal no drainage EARS:TMS clear with good light reflex. THROAT: Pharynx clear, no exudate. NECK: Supple. No adenopathy, no masses. RESPIRATORY: Airway patent, respirations nonlabored. Clear to auscultation bilaterally, no rales, rhonchi, wheezing. CARDIOVASCULAR: Regular rate and rhythm without murmurs rubs or gallops. ABDOMINAL: Soft, nontender, nondistended, normal bowel sounds MUSCULOSKELETAL: Moves all extremities. Strength/ROM intact, No edema, No calf tenderness. NEURO: Alert. Cranial nerves II through XII intact. Good gait. Good coordination SKIN: Warm, dry. Normal Color Course Vital Signs Vital signs: Vital Signs Temperature 97.5 F L 04/27/24 06:23 Pulse Rate 102 H 04/27/24 06:23 Respiratory Rate 19 04/27/24 06:23 Blood Pressure 146/69 H 04/27/24 06:23 Pulse Oximetry 97 04/27/24 06:23 Oxygen Delivery Room Air 04/27/24 06:23 Temperature 98.0 F 04/27/24 14:00 Pulse Rate 80 04/27/24 14:00 Respiratory Rate 16 04/27/24 14:00 Blood Pressure 117/52 L 04/27/24 14:00 Pulse Oximetry 97 04/27/24 14:00 Oxygen Delivery Room Air 04/27/24 13:28 Medical Decision Making MDM Narrative Medical decision making narrative: 80-year-old female presents to the emergency department for evaluation for worsening fatigue cough and congestion. Patient was diagnosed with RSV proximal 2 weeks ago and diagnosed with influenza a approximately 5 days ago. Patient reports increasing weakness and feels she is unable to care for herself at her care facility. Chest x-ray was negative. Chest CT was concerning for underlying focal infection and patient was started on antibiotics for concern for underlying pneumonia. Patient is currently afebrile no leukocytosis hemoglobin of 15.5. No significant abnormalities on the patient's CMP. Case discussed with hospitalist patient was accepted for admission. Patient and family were comfortable the plan for admission. Differential Diagnosis Differential Diagnosis: COVID, RSV, influenza, pneumonia, superinfection, dehydration Vital Signs Vital Signs: Vital Signs Temperature 97.5 F L 04/27/24 06:23 Pulse Rate 102 H 04/27/24 06:23 Respiratory Rate 19 04/27/24 06:23 Blood Pressure 146/69 H 04/27/24 06:23 Pulse Oximetry 97 04/27/24 06:23 Oxygen Delivery Room Air 04/27/24 06:23 Temperature 98.0 F 04/27/24 14:00 Pulse Rate 80 04/27/24 14:00 Respiratory Rate 16 04/27/24 14:00 Blood Pressure 117/52 L 04/27/24 14:00 Pulse Oximetry 97 04/27/24 14:00 Oxygen Delivery Room Air 04/27/24 13:28 Lab Data Lab results reviewed: Yes I reviewed the patient's lab results. 04/27/24 06:54 04/27/24 06:54 Labs: Lab Results 04/27/24 04/27/24 04/27/24 Range/Units 06:54 07:07 08:44 WBC 8.0 (4.5-10.0) K/mm3 RBC 5.22 (4.2-5.4) M/mm3 Hgb 15.5 H (12.0-15.0) g/dL Hct 46.5 (37.0-47.0) % MCV 89.1 (80-100) fl MCH 29.7 (26-34) pg MCHC 33.3 (32-36) g/dl RDW 14.4 (11.5-14.5) % Plt Count 172 (150-375) k/mm3 MPV 10.2 (7.4-10.4) fl Immature Gran % (Auto) 0.2 (0-0.5) % Neut % (Auto) 72.5 (45.5-73.1) % Lymph % (Auto) 13.0 L (18.3-44.2) % Hayes % (Auto) 13.2 H (2.6-8.5) % Eos % (Auto) 0.5 (0-4.4) % Baso % (Auto) 0.6 (0.2-1.2) % Lymph # (Auto) 1.04 (0.9-3.2) K/mm3 Hayes # (Auto) 1.1 H (0.1-0.6) K/mm3 Eos # (Auto) 0.0 (0-0.3) K/mm3 Baso # (Auto) 0.1 (0.0-0.1) K/mm3 Abs Immat Gran (auto) 0.02 (0.00-0.031) K/mm3 Absolute Neuts (auto) 5.8 (1.3-6.7) K/mm3 Absolute Nucleated RBC 0.000 (0.0-0.012) K/mm3 Nucleated RBC % 0.0 (0.0-0.2) % Sodium 136 L (137-145) mmol/L Potassium 3.2 L (3.4-5.0) mmol/L Chloride 99 (98-107) mmol/L Carbon Dioxide 25 (22-30) mmol/L Anion Gap 12 (4-12) mmol/L BUN 17 (7-17) mg/dL Creatinine 0.68 L (0.7-1.0) mg/dL Estim Creat Clear Calc 39 ml/min Estimated GFR > 60 (59 - ) Glucose 115 H (65-110) mg/dL Calcium 9.5 (8.4-10.2) mg/dL Total Bilirubin 2.9 H (0.2-1.3) mg/dL AST 30 (14-36) U/L ALT 23 (6-35) U/L Alkaline Phosphatase 69 (38-126) U/L Total Protein 7.0 (6.3-8.2) g/dL Albumin 4.1 (3.5-5.1) g/dL Lipase 148 (23-300) U/L Urine Color Yellow (Yellow) Urine Appearance Cloudy H (Clear) Urine pH 5.5 (5.0-9.0) Ur Specific [place] 1.020 (1.001-1.035) Urine Protein Trace (Negative) mg/dL Urine Glucose (UA) Negative (Negative) mg/dL Urine Ketones 1+ H (Negative) mg/dL Ur Blood (Man) Negative (Negative) Urine Nitrate Negative (Negative) Urine Bilirubin Negative (Negative) Urine Urobilinogen 1.0 (<2.0) mg/dL Add Ur Microanalysis Reviewed Leukocyte Esterase Rfl Negative (Negative) ANA MARIA/UL Urine RBC 0-2 (0-2) /hpf Urine WBC 0-5 (0-3) /hpf Ur Squamous Epith Cells Occasional (Few) /hpf Urine Bacteria None seen /hpf Urine Casts 3-5 Urine Mucus Present /lpf Influenza A (RT-PCR) Positive A (Negative) Influenza B (RT-PCR) Negative (Negative) RSV (RT-PCR) Positive A (Negative) SARS-CoV-2 RNA (RT-PCR) Negative (Negative) Imaging Data Radiologist's impression: Impressions Chest X-Ray 04/27/24 06:51 Impression: Clear lungs. Chest CT 04/27/24 07:58 Impression: Small grouped groundglass nodules in the inferomedial right lower lobe, compatible with focal infectious/inflammatory process. Discharge Plan Discharge Clinical Impression: Respiratory syncytial virus (RSV), Influenza A, Weakness, Pneumonia Patient Disposition: Still a Patient Condition: Stable
--- OUTSIDE RECORDS SUMMARY | 2024-04-27 07:30 | XMS_ITS | Continuity of Care Document ---
Author Organization [facility] Address [address] [place] [address] Phone Care Team Providers Care Relay Adjuster Name Role Phone Chad PT, DPT, Sd Unavailable Unavailable Procedures Procedure Date Therapeutic Activities Therapeutic Exercise Therapeutic Activities Therapeutic Exercise Therapeutic Activities Therapeutic Exercise Therapeutic Activities Therapeutic Exercise PT Evaluation Low Complexity Therapeutic Activities Advance Directives Directive Yes / No Effective Date File Name No Information Encounters Encounter Description Practice Location Reason(s) For Visit Diagnoses Date Provider Providers Copied on Encounter [facility], [address] [address], [place], [place], [id number], tel:[phone] [facility] No Information Chad Beaver. . Referring Provider: Soniya Zurita [facility], [place], [address]. tel:[phone] [facility] [address], [id number], tel:[phone] [facility] No Information Chad Beaver. . Referring Provider: Jose Alonzo, [address] [facility] [address], [place], [address]. tel:[phone] [facility] [address] [place] [address], [place], [place], [id number], tel:[phone] [facility] No Information Chad Beaver. . Referring Provider: Jose Alonzo, [address] [facility] [address], [place], [address]. tel:[phone] [address], [place], [place], [id number], tel:[phone] [facility] No Information Chad Beaver. . Referring Provider: Jose Alonzo, [address] [facility] [address], [place], [address]. tel:[phone] [address] [facility] [address], [place], [place], [id number], tel:[phone] [facility] No Information Chad Beaver. . Referring Provider: Jose Alonzo, [address] [facility] [address], [place], [address]. tel:[phone] Family History Family Member Type Diagnosis Age At Onset No Information Payers Payer name Insurance type Covered constitution party ID Authorjimia iker(s) Medicare [place] MB [id number] [facility] [id number] Social History Type Description Quantity Date Captured [...]
--- OUTSIDE RECORDS SUMMARY | 2024-04-27 07:30 | XMS_ITS | Referral Summary ---
Author Organization [facility] Address [address] [place] [address] Care Team Providers Care Program Architect Name Role Phone Carmenza Fernandez MD Primary Care Provider [phone] Encounters Date Type Department Care Team Description 03/06/2024 Orders Only [facility] [place] [address] [place] [address] Leena Logan MD HUDSON (obstructive sleep apnea) (Primary Dx) 03/06/2024 10:30 AM SUBASSEMBLIES WIRER Office [place] [facility] [place] [address] [place] [address] Leena Logan MD Hypersomnia with sleep apnea [...] 1 drop into both eyes nightly Active zolpidem (AMBIEN) 10 mg tabletIndicatio ns:Sleep-Onset Insomnia Take 1 tablet (10 mg total) by mouth nightly as needed for sleep 5 tablet 5 05/20/19 25 Active Active Problems No known active problems [...] Comments Blood Pressure 142/80 03/06/2024 10:45 AM SUBASSEMBLIES WIRER Pulse 74 03/06/2024 10:45 AM SUBASSEMBLIES WIRER Temperature 36.6 C (97.9 F) 06/01/2023 9:39 AM CDT Respiratory Rate 16 06/01/2023 12:00 PM CDT Oxygen Saturation 98% 03/06/2024 10:45 AM SUBASSEMBLIES WIRER Inhaled Oxygen Concentration - - Weight 68 kg (149 lb 14.6 oz) 06/01/2023 9:39 AM CDT Height 157.5 cm (5' 2 ) 03/06/2024 10:45 AM SUBASSEMBLIES WIRER Body Mass Index - - Plan of Treatment Not on file Insurance MEDICARE [facility] MEDICARE Care Teams Program Architect Relationship Specialty Start Date End Date Carmenza Fernandez MD PCP - General Family Medicine 06/01/23
--- OUTSIDE RECORDS SUMMARY | 2024-04-27 07:30 | XMS_ITS | Encounter Summary ---
Author Organization [facility] Address [address] [place] [address] Care Team Providers Care Learning Analyst Name Role Phone Evens Mattson MD Primary Care Provider Unavailab gege Vega MD, Robert Unavailable [phone] Janee Ahn ANP-BC Unavailable [phone] Tanvi Cordova NP Unavailable [phone] Wilbert Kimbrough MD Unavailable [phone] Spencer Nguyen MD Unavailable Unavailable Tahir WigginsC Unavailable [phone] Carmenza Fernandez MD Primary Care Provider [phone] Encounter Details Date Type Department Care Team (Late st Contact Info) Description 05/08/2017 Abstract [facility] [address] [place] [address] , Generic Conversion, Social History Tobacco Use [...] Care Team (Late st Contact Info) Description 05/12/2024 11:45 AM CDT Office Visit [facility] [address] Juan Luis Erazo MD [address] [facility] [address] [place] [address] documented as of this encounter Visit Diagnoses Not on filedocumented in this encounter Care Teams Learning Analyst Relationship Specialty Start Date End Date Evens Mattson MD PCP - General INTERNAL MEDICINE 02/28/16 09/30/23 Carmenza Fernandez MD [address] [place] [address] PCP - General FAMILY PRACTICE 10/01/23 Luis Angel Moreno MD CARDIOVASCULAR DISEASE 02/28/16 Janee Ahn, ANP- [address] [facility] [address] [phone] NURSE PRACTITIONER 02/28/16 Tanvi Cordova NP [address] [address] NURSE PRACTITIONER 04/27/16 Wilbert Kimbrough MD 9 [facility] [address] [address] CARDIOVASCULAR DISEASE 03/15/17 Spencer Nguyen MD [address] [address] EP Broom Builder CLINICAL CARDIAC ELECTROPHYSIOLOGY 03/22/17 Tahir Wiggins PA-C [address] [place] [address] Electrophysiology 03/22/17 documented as of this encounter
--- OUTSIDE RECORDS SUMMARY | 2024-04-27 07:30 | XMS_ITS | Clinical Summary ---
Author Organization [facility] Address [address] [place] [address] Care Team Providers Care Assistant Account Manager Name Role Phone Carmenza Fernandez MD Primary Care Provider [phone] Allergies Active Allergy Reactions Criticality Noted Date [...] nightly as needed for sleep 5 tablet 05/20/19 25 Active Active Problems No known active problems Encounters Date Type Department Care Team Description 03/06/2024 10:30 AM DOUGHNUT MAKER Office [place] [facility] [address] [place] [address] [address] [place] [address] Leena Logan MD Hypersomnia with sleep apnea (Primary Dx); HUDSON (obstructive sleep apnea); Paradoxical insomnia 03/06/2024 Orders Only [facility] [place] [facility] [address] [place] [address] [address] [place] [address] Leena Logan MD HUDSON (obstructive sleep apnea) [...] Comments Blood Pressure 142/80 03/06/2024 10:45 AM DOUGHNUT MAKER Pulse 74 03/06/2024 10:45 AM DOUGHNUT MAKER Temperature 36.6 C (97.9 F) 06/01/2023 9:39 AM CDT Respiratory Rate 16 06/01/2023 12:00 PM CDT Oxygen Saturation 98% 03/06/2024 10:45 AM DOUGHNUT MAKER Inhaled Oxygen Concentration - - Weight 68 kg (149 lb 14.6 oz) 06/01/2023 9:39 AM CDT Height 157.5 cm (5' 2 ) 03/06/2024 10:45 AM DOUGHNUT MAKER Body Mass Index - - Plan of Treatment Health Maintenance Due Date Last Done Comments Depression Screening 1935 Fall Risk Assessment 1935 DTaP/Tdap/Td Vaccine (1 - Tdap) 06/20/1946 Hepatitis B Screening 06[birth year]20/1953 Well Visit 65+ 06/20/2000 Zoster Vaccine (2 of 2) 03/21/2021 01/24/2021 Pneumococcal vaccine 65+ (2 of 2 - PCV) 10/21/2021 10/21/2020 Covid-19 Vaccine (6 - 2023-2 5 season) 2023 12/31/2022, 01/04/2022, 12/07/2020, Additional history exists Influenza Vaccine (#1) 2023 12/17/2022, 2021 Insurance MEDICARE [facility] MEDICARE Care Teams Assistant Account Manager Relationship Specialty Start Date End Date Carmenza Fernandez MD PCP - General Family Medicine 06/01/23
--- OUTSIDE RECORDS SUMMARY | 2024-04-27 07:30 | XMS_ITS | Continuity of Care Document ---
Author Organization [facility] Address [address] [place] [address] Phone Care Team Providers Care Practice Physician Name Role Phone Jose Alonzo MD Unavailable Unavailable Allergies, Adverse Reactions, Alerts Substance Reaction Status Criticality MEPERIDINE HCL Active No Informatio n Sulfa (Sulfonamide Antibiotics) Active No Information amoxicillin Active No Information Medications Medication Instructions Dosage Effective Dates (start - stop) Status Comments Neurontin 300 mg capsule take 1 capsule [...] 1 capsule by oral route every day [address] UNITS - Active Crestor 40 mg tablet [...] route every day 50 MG - Active Neurontin 100 mg capsule take 1 Capsule by oral route 2 times every day 100 MG - Active Eliquis 2.5 mg tablet take 1 tablet by oral route 2 times every day 2.5 MG - Active Norvasc 5 mg tablet take 1 tablet by oral route every day 5 MG - Active Procedures Procedure Date OFFICE/OUTPATIENT VISIT, [facility] Advance Directives Directive Yes / No Effective Date File Name No Information Encounters Encounter Description Practice Location Reason(s) For Visit Diagnoses Date Provider Providers Copied on Encounter [facility], [address], [place], [place], [id number], tel:[phone] [facility] No Information 1 Clinton Garcia. [address], [place], [place], [id number] , [place]. tel:[phone] OFFICE/OUTPA TIENT VISIT, [facility], [address] [place], [place], [id number], tel:[phone] [facility] stroke1 (chief complaint) Afib1 (chief complaint) incontinen ce1 (chief complaint) HLP (chief complaint) neuropathy 1 (chief complaint) StrokeUrge incontinenceHyperli pidemiaEssential (primary) hypertensionInsomni aNeuropathyAtrial fibrillation 1 Clinton Garcia. [address] [facility] [place], [id number] , [place]. tel:[phone] Family History Family Member Type Diagnosis Age At Onset No Information Payers Payer name Insurance type Covered democrat ID Authoriza tion(s) No Information Social History [...] Date Complaint History Of Prese nt Illness neuropathy1 Pt has periphera l neuropathy with insomnia Pt takes neurontin TID which supposes to help her with insomnia as well. Pt states that it really has not helped much of her insomnia. HLP Pt has HLP. Pt t akjavier crestor .pt denies any myalgia incontinence1 Pt has chronic u rge incontinence. Pt denies any stress incontinence. Pt denies any urinary symptoms Pt wears pad and diapers . Afib1 Pt has chronic a fib with history of CAD with stenting x 4. . Pt is on norvasc, metoprolol, crestor, losartan, eliquis. Pt sees cardiology. 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 Pt ambulate with walker. Pt just moved in with her daughter locally from out of town and she wants to continue home PT and OT. Pt denies any speech difficulty Instructions Date Instruction Additional Infor mation No Information Assessments Type Assessment Date No Information
--- OUTSIDE RECORDS SUMMARY | 2024-04-27 07:30 | XMS_ITS | Encounter Summary ---
Author Organization [facility] Address [address] [place] [address] Care Team Providers Care Refractive Surgeon Name Role Phone Evens Mattson MD Primary Care Provider Unavailab gege Vega MD, Robert Unavailable [phone] Janee Ahn ANP-BC Unavailable [phone] Tanvi Cordova NP Unavailable [phone] Wilbert Kimbrough MD Unavailable [phone] Spencer Nguyen MD Unavailable Unavailable Tahir WigginsC Unavailable [phone] Carmenza Fernandez MD Primary Care Provider [phone] Encounter Details Date Type Department Care Team (Late st Contact Info) Description 10/18/2014 Abstract [facility] [address] [place] [address] Luis Angel Moreno MD [address] [facility] [address] [place] [address] Social History Tobacco Use Types Packs/Day [...] Description 05/12/2024 11:45 AM CDT Office Visit [facility] [address] Juan Luis Erazo MD [address] [facility] [address] [place] [address] documented as of this encounter Visit Diagnoses Not on filedocumented in this encounter Care Teams Refractive Surgeon Relationship Specialty Start Date End Date Evens Mattson MD PCP - General INTERNAL MEDICINE 02/28/16 09/30/23 Carmenza Fernandez MD [address] [place] [address] PCP - General FAMILY PRACTICE 10/01/23 Luis Angel Moreno MD CARDIOVASCULAR DISEASE 02/28/16 Janee Ahn, [facility]- [id number] [place] [address] NURSE PRACTITIONER 02/28/16 Tanvi Cordova NP [address] [facility] [address] [place] [address] NURSE PRACTITIONER 04/27/16 Wilbert Kimbrough MD [address] [facility] [address] [place] [address] CARDIOVASCULAR DISEASE 03/15/17 Spencer Nguyen MD [address] [facility] [address] [place] [address] EP Clearing Hand CLINICAL CARDIAC ELECTROPHYSIOLOGY 03/22/17 Tahir Wiggins PA-C [address] [place] [address] Electrophysiology 03/22/17 documented as of this encounter
--- OUTSIDE RECORDS SUMMARY | 2024-04-27 07:30 | XMS_ITS | Encounter Summary ---
Author Organization [facility] Address [address] [place] [address] Care Team Providers Care Agency Recruiter Name Role Phone Evens Mattson MD Primary Care Provider Unavailab gege Vega MD, Robert Unavailable [phone] Janee Ahn ANP-BC Unavailable [phone] Tanvi Cordova NP Unavailable [phone] Wilbert Kimbrough MD Unavailable [phone] Spencer Nguyen MD Unavailable Unavailable Tahir WigginsC Unavailable [phone] Carmenza Fernandez MD Primary Care Provider [phone] Encounter Details Date Type Department Care Team (Latest Contact Info) Description 12/28/2017 Abstract [facility] Adelia Abarca MD Social History [...] Description 05/12/2024 11:45 AM CDT Office Visit [facility] [address] Juan Luis Erazo MD 3 [facility] [address] [place] [phone] documented as of this encounter Visit Diagnoses Not on filedocumented in this encounter Care Teams Agency Recruiter Relationship Specialty Start Date End Date Evens Mattson MD PCP - General INTERNAL MEDICINE 02/28/16 09/30/23 Carmenza Fernandez MD [address] [place] [address] PCP - General FAMILY PRACTICE 10/01/23 Luis Angel Moreno MD CARDIOVASCULAR DISEASE 02/28/16 Janee Ahn, ANP- [address] [facility] [address] [place] [address] NURSE PRACTITIONER 02/28/16 Tanvi Cordova NP [address] [facility] [address] [place] [address] NURSE PRACTITIONER 04/27/16 Wilbert Kimbrough MD [address] [facility] [address] [place] [address] CARDIOVASCULAR DISEASE 03/15/17 Spencer Nguyen MD [address] [facility] [address] [place] [address] EP Shuttle Veneering Supervisor CLINICAL CARDIAC ELECTROPHYSIOLOGY 03/22/17 Tahir Wiggins PA-C [address] [place] [address] Electrophysiology 03/22/17 documented as of this encounter
--- OUTSIDE RECORDS SUMMARY | 2024-04-27 07:30 | XMS_ITS | Clinical Summary ---
Author Organization [facility] Address [address] [place] [address] Care Team Providers Care Plastics Plater Name Role Phone Tiffanie Vega MD, Robert Unavailable [phone] Janee Ahn ANP-BC Unavailable [phone] Tanvi Cordova NP Unavailable [phone] Wilbert Kimbrough MD Unavailable [phone] Spencer Nguyen MD Unavailable Unavailable Tahir Wiggins PA-C Unavailable [phone] Carmenza Fernandez MD Primary Care Provider [phone] Allergies Active Allergy Reactions Criticality Noted Date [...] 2 (two) times daily. 2 Active Multiple Vitamins-[place] als (CENTRUM SILVER 50+WOMEN OR) Take 1 [...] Date Subdural hematoma 01/09/2022 Paroxysmal atrial fibrillation ([facility]) 03/29/2020 CVA (cerebral vascular accident) ([facility]) 04/05/2018 Thrombus of left atrial appendage 04/05/2018 Sepsis ([facility]) 04/05/2018 UTI (urinary tract infection) 04/05/2018 Acute ischemic stroke ([facility]) 04/05/19 19 Intracranial hemorrhage, spo ntaneous intraparenchymal, associated with arterial infarction, acute ([facility]) 04/05/2018 Current use of halfway anticoagulation 018 Shortness of breath 01/26/2017 Persistent atrial fibrillation 04/07/2016 Angina, class III 04/07/2016 Dyspnea on exertion 03/22/2016 S/P coronary artery stent placement 03/16/2016 NSTEMI (non-ST elevated myoc ardial infarction) ([facility]) 01/28/2007 CAD (coronary artery disease), [place] coronary a rtery Overview (02/07/2016): s/p stent [...] Alive Child 5 Father (Age 48) CAD, [place] Maternal Grandfather (Age 87 ) Stroke Maternal [...] 36.4 C (97.5 F) 03/29/2020 11:09 AM RECYCLING CREW SUPERVISOR Respiratory Rate 14 03/29/2020 11:09 AM RECYCLING CREW SUPERVISOR Oxygen Saturation 98% 10/01/2023 12:51 PM CDT Inhaled Oxygen Concentration - - Weight 64 kg (141 lb 3.2 oz) 10/01/2023 12:51 PM CDT Height 157.5 cm (5' 2 ) 10/01/2023 12:51 PM CDT Body Mass Index 25.83 10/01/2023 12:51 PM CDT Plan of Treatment Upcoming Encounters Date Type Department Care Team (Late st Contact Info) Description 05/12/2024 11:45 AM CDT Office Visit [facility] [address] Juan Luis Erazo MD 3 [facility] [address] [place] [phone] Health Maintenance Due Date Last Done [...] Influenza Adult (#1) 2023 12/25/2021 PHQ-2 (Physician Quinault) 02/23/2024 Zoster Vaccines Completed 01/04/2022, 1204/2020, 01/24/2021 [...] Comments LIPID PANEL Routine 04/06/2018 2:23 AM RECYCLING CREW SUPERVISOR from Last 3 Months or Most Recently Relevant to Health Maintenance Results * LIPID PANEL (04/06/2018 2:23 AM RECYCLING CREW SUPERVISOR) CHOLESTEROL 173 MG/DL 04/06/2018 7:31 AM RECYCLING CREW SUPERVISOR [facility] Comment:DESIRABLE: <200 TRIGLYCERIDES 91 MG/DL 04/06/2018 7:31 AM RECYCLING CREW SUPERVISOR [facility] Comment:<150 NORMAL HDL 60 >49 MG/DL 04/06/2018 7:31 AM [facility] LDL (CALCULATED) 95 MG/DL 04/06/19 7:31 AM [facility] Comment:<100 OPTIMAL VLDL CALCULATION 18 MG/DL 04/06/19 7:31 AM [facility] Comment:REFERENCE RANGE NOT ESTABLISHED CHOL/HDL RATIO 2.9 04/06/2018 7:31 AM [facility] Comment:REFERENCE RANGE NOT ESTABLISHED LDL/HDL 1.6 04/06/2018 7:31 AM [facility] Comment:REFERENCE RANGE NOT ESTABLISHED NON HDL CHOLESTEROL 113 MG/DL 04/06/2018 7:31 AM [facility] Comment:REFERENCE RANGE NOT ESTABLISHED 04/06/2018 2:23 AM RECYCLING CREW SUPERVISOR us Galdino Go MD LABORATORY Final Resul t [facility] [address] [place] [address], [id number] from Last 3 Months or Most Recently Relevant to Health Maintenance Insurance MEDICARE MEDICARE [facility] Advance Directives Documents on File Type Date Recorded Patient Maintenance Department Technician Expl anation Advance Directives and Living Will 04/07/2018 1:14 PM 02/23/11 LIVING WILL Power of Long Winder Tender 04/07/2018 1:14 PM Advance Directives and Living Will 05/08/2017 ADVANCE DIRECTIVE Advance Directives and Living Will 05/08/2017 LIVING WILL Advance Directives and Living Will 05/08/2017 POWER OF BENEFITS PROCESSOR R HEALTH CARE Advance Directives and Living Will 05/08/2017 SHORT FORM POWER OF BENEFITS PROCESSOR Advance Directives and Living Will 03/15/2017 SHORT FORM POWER OF BENEFITS PROCESSOR Advance Directives and Living Will 03/15/2017 ADVANCE DIRECTIVE Advance Directives and Living Will 03/15/2017 LIVING WILL Advance Directives and Living Will 03/15/2017 POWER OF BENEFITS PROCESSOR FO R HEALTH CARE Advance Directives and Living Will 03/12/2017 ADVANCE DIRECTIVE Advance Directives and Living Will 03/12/2017 LIVING WILL Advance Directives and Living Will 03/12/2017 POWER OF BENEFITS PROCESSOR FO R HEALTH CARE Advance Directives and Living Will 03/12/2017 SHORT FORM POWER OF BENEFITS PROCESSOR Advance Directives and Living Will 03/12/2017 ADVANCE DIRECTIVE Advance Directives and Living Will 03/12/2017 LIVING WILL Advance Directives and Living Will 03/12/2017 POWER OF BENEFITS PROCESSOR FO R HEALTH CARE Advance Directives and Living Will 03/12/2017 SHORT FORM POWER OF BENEFITS PROCESSOR Advance Directives and Living Will 01/26/2017 ADVANCE DIRECTIVE Advance Directives and Living Will 01/26/2017 SHORT FORM POWER OF BENEFITS PROCESSOR Advance Directives and Living Will 01/26/2017 LIVING WILL Advance Directives and Living Will 01/26/2017 POWER OF BENEFITS PROCESSOR FO R HEALTH CARE Advance Directives and Living Will 11/17/2016 LIVING WILL Advance Directives and Living Will 11/17/2016 ADVANCE DIRECTIVE Advance Directives and Living Will 11/17/2016 POWER OF BENEFITS PROCESSOR FO R HEALTH CARE Advance Directives and Living Will 11/17/2016 SHORT FORM POWER OF BENEFITS PROCESSOR Advance Directives and Living Will 09/16/2016 ADVANCE DIRECTIVE Advance Directives and Living Will 09/16/2016 LIVING WILL Advance Directives and Living Will 09/16/2016 POWER OF BENEFITS PROCESSOR FO R HEALTH CARE Advance Directives and Living Will 09/02/2016 POWER OF BENEFITS PROCESSOR FO R HEALTH CARE Advance Directives and Living Will 09/02/2016 ADVANCE DIRECTIVE Advance Directives and Living Will 09/02/2016 LIVING WILL Advance Directives and Living Will 05/20/2016 LIVING WILL Advance Directives and Living Will 05/20/2016 ADVANCE DIRECTIVE Advance Directives and Living Will 05/20/2016 POWER OF BENEFITS PROCESSOR FO R HEALTH CARE Advance Directives and Living Will 04/16/2016 ADVANCE DIRECTIVE Advance Directives and Living Will 04/16/2016 LIVING WILL Advance Directives and Living Will 04/16/2016 POWER OF BENEFITS PROCESSOR FO R HEALTH CARE Advance Directives and [...] 6:30 AM 04/16/2018 4:34 PM Care Teams Plastics Plater Relationship Specialty Start Date End Date Carmenza Fernandez MD [address] [place] [address] PCP - General FAMILY PRACTICE 10/01/23 Luis Angel Moreno MD CARDIOVASCULAR DISEASE 02/28/16 Janee Ahn, ANP- [id number] [place] [address] NURSE PRACTITIONER 02/28/16 Tanvi Cordova NP [address] [facility] [address] [place] [address] NURSE PRACTITIONER 04/27/16 Wilbert Kimbrough MD [address] [facility] [address] [place] [address] CARDIOVASCULAR DISEASE 03/15/17 Spencer Nguyen MD [address] [facility] [address] [place] [address] EP Sulfur Burner CLINICAL CARDIAC ELECTROPHYSIOLOGY 03/22/17 Tahir Wiggins PA-C [address] [place] [phone] Electrophysiology 03/22/17
[2024-04-27] MEDS: ALBUTEROL SULFATE NEB 2.5 MG/3 ML INH INHALATION ×3 (07:31→20:27)
[2024-04-27 07:47] LABS: Influenza A QL RT-PCR Positive (Negative); Influenza B QL RT-PCR Negative (Negative); RSV RNA, RT-PCR Positive (Negative); SARS-CoV-2 RNA PCR Negative (Negative)
[2024-04-27 09:16] LABS: Add Urine Microscopic? YES; Appearance Urine Cloudy (Clear); Bacteria Urine None Seen /hpf; Bilirubin Urine Negative (Negative); Blood Urine Negative (Negative); Color Urine Yellow (Yellow); Glucose Urine UA Negative (Negative); Ketones Urine 1+ mg/dL (Negative); Leukocyte Esterase Ur Negative LEU/UL (Negative); Mucus Urine Present /lpf; Need Manual Microscopic Reviewed; Nitrate Urine Negative (Negative); Protein Urine Trace mg/dL (Negative); RBC Urine 0-2 /hpf (0-2); Squamous Epithelial Cell Urine Occasional /hpf (Few); WBC Urine 0-5 /hpf (0-3); pH Urine 5.5 (5.0-9.0)
[2024-04-27] MEDS: OSELTAMIVIR PHOSPHATE 30 MG CAPSULE PO ×2 (09:32→21:46)
[2024-04-27] MEDS: levoFLOXacin 750 MG/D5W 150 ML 750 MG/150 ML BAG 100 MG IVPB (09:33)
--- NOTE | 2024-04-27 09:47 | P.HP_ITS ---
H&P: HPI History of Present Illness Date/Time: 04/27/24 09:47 Chief Complaint: General weakness cough Narrative: 88 years of female with history of hypertension, paroxysmal AFib, CAD status post stents, present ED with a chief complaint of cough, general weakness. Patient has been feeling weak in past few more days, patient has a cough with scant phlegm. And patient has shortness breath with exertion. Patient feels her condition is getting worse in past 3 days. Patient is living in assisted living facility. Patient came to ED for evaluation treatment. Patient denies headache, focal weakness, abdomen pain, nausea vomiting diarrhea dysuria Upon arrival in ED, patient has tachycardia, tachypnea, patient is afebrile, pulse ox 97 on room air, CBC unremarkable. 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 Erazo [facility] AMI (acute myocardial infarction) [place] (obstructive sleep apnea) Hypertension Hemiparesis due to recent stroke Atrial fibrillation Surgical History Surgical History History of coronary artery stent placement History of total bilateral knee replacement Social History Social History Smoking status: Never smoker Alcohol intake: former Substance use: never Substance use type: does not use Do You Feel Safe in your Home?: Yes Lack of Transportation: No Lack of Food: Never True Current Housing: I Have Housing Concerned About Future Housing: No Difficulty Paying Gas/Electric Bills: No Difficulty Paying for Meds: No Currently Unemployed: No Education: Decline to Answer Difficulty w/ Childcare or Family Care: No Living arrangements: with family Additional living arrangements comments: Living with her daughter at this time Occupation/Education: retired Spiritual care concerns: No Agree to blood products: Yes Meds Home Medications and Allergies Home Medications ?Medication ?Instructions ?Recorded ?Confirmed ?Type amlodipine 5 mg tablet 5 mg PO DAILY 07/08/22 04/27/24 History apixaban 2.5 mg tablet (Eliquis) 2.5 mg PO Q12H 07/08/22 04/27/24 History losartan 50 mg tablet 50 mg PO DAILY 07/08/22 04/27/24 History metoprolol succinate 50 mg 50 mg PO DAILY 07/08/22 04/27/24 History tablet,extended release 24 hr nitroglycerin 0.4 mg sublingual 0.4 mg sublingual Q5M PRN chest 07/08/22 04/27/24 History tablet pain timolol maleate 0.5 % eye drops 1 drp EACH EYE HS 07/08/22 04/27/24 History rosuvastatin 10 mg tablet 10 mg PO .qod #90 tabs 08/17/22 04/27/24 Rx [facility] clinic #1 ea 01/18/23 04/27/24 Rx tramadol 50 mg tablet 25 mg (1/2 x 50 mg) PO Q6H PRN 01/26/24 04/27/24 Rx pain #15 tabs potassium chloride 10 mEq 10 meq PO BID #180 caps 02/29/24 04/27/24 Rx capsule,extended release Allergies Allergy/AdvReac Type Severity Reaction Status Date / Time amoxicillin Allergy Intermediate Diarrhea Verified 04/27/24 11:18 meperidine Allergy Intermediate Nausea and Verified 04/27/24 11:18 Vomiting propoxyphene Allergy Intermediate Unknown Verified 04/27/24 11:18 Sulfa (Sulfonamide Allergy Intermediate Itching Verified 04/27/24 11:18 Antibiotics) atorvastatin AdvReac Severe Muscle Pain Verified 04/27/24 11:18 pravastatin AdvReac Severe Muscle Pain Verified 04/27/24 11:18 Vital Signs Vital Signs - 24 hr 04/27/24 06:23 04/27/24 06:43 04/27/24 06:45 Temperature 97.5 F L 97.5 F L Pulse Rate 102 H 102 H Respiratory Rate 19 19 Blood Pressure 146/69 H 146/69 H Pulse Oximetry 97 97 97 Oxygen Delivery Room Air Room Air 04/27/24 07:30 04/27/24 07:32 04/27/24 07:41 Temperature 97.9 F Pulse Rate 90 104 H 109 H Respiratory Rate 18 18 22 H Blood Pressure 138/70 Pulse Oximetry 99 Oxygen Delivery 04/27/24 08:30 04/27/24 09:28 Temperature 97.7 F 97.9 F Pulse Rate 94 96 Respiratory Rate 16 16 Blood Pressure 118/66 121/60 Pulse Oximetry 98 98 Oxygen Delivery Exam Narrative: GENERAL: Pleasant, in no acute distress. Well-nourished. - EYES: EOMI. Anicteric. - HENT: Moist mucous membranes. - LUNGS: Coarse breath sound bilaterall y, tachypnea - CARDIOVASCULAR: Regular rate and rhyth m. No murmur. No JVD. Tachycardia - ABDOMEN: Soft, non-tender and non-dist ended. No palpable masses. - EXTREMITIES: No edema. Peripheral puls es 2+. Non-tender. - NEUROLOGIC: No focal neurological defi cits. CN II-XII grossly intact. General weakness - PSYCHIATRIC: Awake, Alert and oriented x 3. Appropriate mood and affect. - SKIN: No rashes or lesions. Warm. - LYMPH: No cervical lymphadenopathy. H&P: Results Labs Labs: Short CBC 04/27/24 Range/Units 06:54 WBC 8.0 (4.5-10.0) K/mm3 Hgb 15.5 H (12.0-15.0) g/dL Hct 46.5 (37.0-47.0) % Plt Count 172 (150-375) k/mm3 BMP 04/27/24 06:54 Sodium 136 L Potassium 3.2 L Chloride 99 Carbon Dioxide 25 BUN 17 Creatinine 0.68 L Glucose 115 H Calcium 9.5 Liver Function 04/27/24 Range/Units 06:54 Total Bilirubin 2.9 H (0.2-1.3) mg/dL AST 30 (14-36) U/L ALT 23 (6-35) U/L Alkaline Phosphatase 69 (38-126) U/L Albumin 4.1 (3.5-5.1) g/dL Urine 04/27/24 Range/Units 08:44 Urine Color Yellow (Yellow) Urine Appearance Cloudy H (Clear) Urine pH 5.5 (5.0-9.0) Ur Specific [place] 1.020 (1.001-1.035) Urine Protein Trace (Negative) mg/dL Urine Glucose (UA) Negative (Negative) mg/dL Assessment and Plan Assessment and plan (1) CAD (coronary artery disease): Qualifiers: Associated angina: unspecified whether angina present Coronary Disease- Associated Artery/Lesion type: unspecified vessel or lesion type [place] vs. transplanted heart: unspecified whether [place] or transplanted heart Qualified Code(s): I25.10 - Atherosclerotic heart disease of [place] coronary artery without angina pectoris Code(s): I25.10 - Atherosclerotic heart disease of [place] coronary artery without angina pectoris Status: Acute (2) Atrial fibrillation: Qualifiers: Atrial fibrillation type: paroxysmal Qualified Code(s): I48.0 - Paroxysmal atrial fibrillation Code(s): I48.91 - Unspecified atrial fibrillation Status: Acute (3) Community acquired pneumonia due to influenza A virus: Code(s): J09.X1 - Influenza due to identified novel influenza A virus with pneumonia Status: Acute (4) Respiratory syncytial virus (RSV): Code(s): B33.8 - Other specified viral diseases Status: Acute (5) General weakness: Code(s): R53.1 - Weakness Status: Acute Plan General weakness Likely secondary to physical deconditioning, it is aggravated by by acute illness including pneumonia, poor intake, influenza a infection, RSV infection Patient has no focal weakness Treat underlying disease Consult PT OT transitional care nurse for evaluation and assisting placement, patient lives in assisted living alone Community-acquired pneumonia due to influenza a RSV and possible bacterial infection Patient received Tamiflu, and Levaquin in the ED Continue albuterol nebulizer q.6 hours scheduled Provide O2 therapy p.r.n. to keep pulse ox above 94 given history of CAD History of CAD, paroxysmal AFib Denies chest pain Stable Patient is on Eliquis 2.5 mg b.i.d. p.o. metoprolol 50 mg daily p.o., nitroglycerin sublingual p.r.n. Hyperlipidemia Continue Lipitor 10 mg daily p.o. Essential hypertension Continue losartan 50 mg daily p.o., amlodipine 5 mg daily p.o. Hospitalist DARIN Advance Care Plan The patient's Advanced Care plan is not present because:: Patient doesn't want to name surrogate or provider advance care plan Medication Reconciliation I have utilized all available resources to obtain, update and review the patients current medications (includes all prescriptions, OTC, herbals, cannabis, and nutritional supplements).: Yes The patient is not eligible for med reconciliation; the patient is in a emergent medical situation where delaying treatment would jeopardize the patients health.: Yes
--- NOTE | 2024-04-27 11:01 | ADMGEN ---
This patient, Domenica Anthony, was admitted to [facility] Surg Room 313-01. Patient/family oriented to hospital policies and general routines including ID bracelet, bed and alarms, visiting hours, pain management, procedures, bathroom and other care routines, personal items, smoking policy, room service/diet, and visiting hours. Information on how to activate the Rapid Response Team has been discussed. Patient/Family are encouraged to report perceived risks to care and to ask questions if they do not understand what they are told or what they should do.
[2024-04-27] MEDS: POTASSIUM CHLORIDE 10 MEQ ER TABLET PO (17:59)
[2024-04-27] MEDS: APIXABAN 2.5 MG TABLET PO (21:46)
[2024-04-27] MEDS: TIMOLOL MALEATE 0.5% OP SOLN 5 ML BOTTLE 1 DROP EACH EYE (21:46)
[2024-04-28] VITALS (11 sets, daily range): BP systolic 103–143; BP diastolic 56–83; PULSE 74–88; RESP 16–18; TEMP 36.4–36.8; O2SAT 95–98; BMI 24.3
[2024-04-28] MEDS: traMADol HCL (*CRX) 25 MG TABLET PO ×2 (00:10→21:56)
[2024-04-28] MEDS: ALBUTEROL SULFATE NEB 2.5 MG/3 ML INH INHALATION ×4 (02:50→20:19)
[2024-04-28] MEDS: ROSUVASTATIN 10 MG TABLET PO (10:11)
[2024-04-28] MEDS: POTASSIUM CHLORIDE 10 MEQ ER TABLET PO ×2 (10:11→17:51)
[2024-04-28] MEDS: APIXABAN 2.5 MG TABLET PO ×2 (10:11→21:56)
[2024-04-28] MEDS: LOSARTAN POTASSIUM 50 MG TABLET PO (10:12)
[2024-04-28] MEDS: amLODIPine BESYLATE 5 MG TABLET PO (10:12)
[2024-04-28] MEDS: METOPROLOL SUCCINATE EXT REL 50 MG TABCR PO (10:12)
[2024-04-28] MEDS: OSELTAMIVIR PHOSPHATE 30 MG CAPSULE PO ×2 (10:12→21:56)
--- NOTE | 2024-04-28 12:08 | P.PNIM_ITS ---
Progress Note: A&P Assessment and Plan (1) Community acquired pneumonia due to influenza A virus: Code(s): J09.X1 - Influenza due to identified novel influenza A virus with pneumonia Status: Acute Assessment and Plan: * Continue Tamiflu and Levaquin * continue DuoNebs * Will start Mucinex * currently on room air, keep O2 sat greater than 92% (2) Respiratory syncytial virus (RSV): Code(s): B33.8 - Other specified viral diseases Status: Acute Assessment and Plan: * supportive care (3) General weakness: Code(s): R53.1 - Weakness Status: Acute Assessment and Plan: * PT and OT ordered (4) CAD (coronary artery disease): Qualifiers: Associated angina: unspecified whether angina present Coronary Disease- Associated Artery/Lesion type: unspecified vessel or lesion type [place] vs. transplanted heart: unspecified whether [place] or transplanted heart Qualified Code(s): I25.10 - Atherosclerotic heart disease of [place] coronary artery without angina pectoris Code(s): I25.10 - Atherosclerotic heart disease of [place] coronary artery without angina pectoris Status: Chronic Assessment and Plan: * continue rosuvastatin (5) Atrial fibrillation: Qualifiers: Atrial fibrillation type: paroxysmal Qualified Code(s): I48.0 - Paroxysmal atrial fibrillation Code(s): I48.91 - Unspecified atrial fibrillation Status: Chronic Assessment and Plan: * continue Eliquis and metoprolol (6) Hypertension: Qualifiers: Hypertension type: primary hypertension Qualified Code(s): I10 - Essential (primary) hypertension Code(s): I10 - Essential (primary) hypertension Status: Chronic Assessment and Plan: * blood pressure ranging 117/52 to 146/69 * continue amlodipine Time Spent With Patient Time with patient: 25 - 35 minutes Subjective Date/time seen: 04/28/24 12:08 Interval history: Interval history: This is an 88-year-old female with a significant past medical history of glaucoma, hypertension, atrial fibrillation, stroke, [place], coronary artery disease with stent placement who presented to the hospital with complaints of cough and generalized weakness. Workup in the hospital included a chest x-ray which was negative. Chest CT which showed small grouped ground-glass nodules in the inferior medial lower lobe compatible with focal infectious / inflammatory process. Initial labs showed a normal white blood cell count of 8.0, hemoglobin 15.5, sodium 136, potassium 3.2, creatinine 0.68, total bili 2.9. A UA was obtained which showed cloudy urine appearance, 1+ urine ketones, otherwise negative. Respiratory panel was positive for influenza a and RSV. Patient was started on Tamiflu and Levaquin. Subjective: Patient denies any fever, chills, nausea, vomiting, diarrhea, abdominal pain, chest pain. She reports SOB at times, cough and congestion. She states that her cough has been somewhat productive and mucous appears to be clear in color. Labs reviewed. Review of Systems Review of Systems: All systems reviewed & are unremarkable except as noted in HPI and below Exam Narrative: General: In no acute distress, well nourished Head: atraumatic, no encephalopathy Eyes: PERRLA, sclera clear ENT: moist mucous membranes, nasal passages clear Neck: supple, no JVD, no adenopathy, trachea midline Cardiac: Normal S1 and S2. No murmur, gallops or friction rubs, peripheral pul ses intact. Respiratory: Lungs upper lobe Rhonchi/course, no adventitious lung sounds, currently on room air Gastrointestinal: soft, non-distended, non-tender, normoactive bowel sounds. : voiding without difficulty. Extremities: moves all extremities well, no edema Skin: clean, dry, intact. No wounds or lesions. Neuro: Alert and oriented x4, cranial nerves intact, no neuro deficits. Psych: normal mood, normal affect, interactive Objective Data Vital Signs Vital Signs: Vital Signs - 24 hr 04/27/24 13:28 04/27/24 13:29 04/27/24 14:00 Temperature 98.0 F Pulse Rate 81 80 Respiratory Rate 20 16 Blood Pressure 117/52 L Pulse Oximetry 98 97 Oxygen Delivery Room Air 04/27/24 20:27 04/27/24 20:28 04/27/24 20:37 Temperature Pulse Rate 90 93 Respiratory Rate 18 18 Blood Pressure Pulse Oximetry 97 Oxygen Delivery Room Air 04/27/24 21:24 04/28/24 02:50 04/28/24 02:58 Temperature 98.3 F Pulse Rate 96 84 86 Respiratory Rate 18 18 18 Blood Pressure 138/73 Pulse Oximetry 97 Oxygen Delivery 04/28/24 05:52 04/28/24 09:40 04/28/24 10:12 Temperature 97.9 F Pulse Rate 74 84 83 Respiratory Rate 16 18 Blood Pressure 143/83 H Pulse Oximetry 98 Oxygen Delivery 04/28/24 10:15 Temperature Pulse Rate Respiratory Rate Blood Pressure Pulse Oximetry Oxygen Delivery Room Air Intake/Output Intake/Output: Intake & Output 04/25/24 04/26/24 04/27/24 04/28/24 23:59 23:59 23:59 23:59 Intake Total 240 540 Output Total 750 Balance 240 -210 Meds/Results Medications: Active Medications Generic Name Dose Route Start Last Admin Trade Name Agnes PRN Reason Stop Dose Admin Albuterol 2.5 mg 04/27/24 14:00 04/28/24 09:39 Albuterol Sulfate Neb 2.5 Mg/3 Ml Inh INHALATION 2.5 mg Q6HRT PAMELA Administration Amlodipine Besylate 5 mg 04/28/24 09:00 04/28/24 10:12 Amlodipine Besylate 5 Mg Tablet PO 5 mg DAILY PAMELA Administration Apixaban 2.5 mg 04/27/24 21:00 04/28/24 10:11 Apixaban 2.5 Mg Tablet PO 2.5 mg Q12H PAMELA Administration Levofloxacin/Dextrose 750 mg in 150 mls @ 100 mls/hr 04/29/24 09:00 Levaquin 750 Mg/D5w 150 Ml IVPB Q48H PAMELA Losartan Potassium 50 mg 04/28/24 09:00 04/28/24 10:12 Losartan Potassium 50 Mg Tablet PO 50 mg DAILY PAMELA Administration Metoprolol Succinate 50 mg 04/28/24 09:00 04/28/24 10:12 Metoprolol Succinate Ext Rel 50 Mg Tabcr PO 50 mg DAILY PAMELA Administration Nitroglycerin 0.4 mg 04/27/24 16:12 Nitroglycerin Sl 0.4 Mg Tablet SUBLINGUAL Q5M PRN chest pain Oseltamivir Phosphate 30 mg 04/27/24 09:00 04/28/24 10:12 Oseltamivir Phosphate 30 Mg Capsule PO 05/02/24 08:59 30 mg Q12HR PAMELA Administration Potassium Chloride 10 meq 04/27/24 17:00 04/28/24 10:11 Potassium Chloride 10 Meq Er Tablet PO 10 meq BID PAMELA Administration Rosuvastatin Calcium 10 mg 04/28/24 09:00 04/28/24 10:11 Rosuvastatin 10 Mg Tablet PO 10 mg Q48H PAMELA Administration Timolol Maleate 1 drop 04/27/24 21:00 04/27/24 21:46 Timolol Maleate 0.5% Op Soln 5 Ml Bottle EACH EYE 1 drop HS PAMELA Administration Tramadol HCl 25 mg 04/27/24 16:12 04/28/24 00:10 Tramadol Hcl (*Crx) 25 Mg Tablet PO 25 mg Q6H PRN Administration PAIN RATED 4-6 Radiology Results: ITS Impressions Chest X-Ray 04/27/24 06:51 Impression: Clear lungs. Chest CT 04/27/24 07:58 Impression: Small grouped groundglass nodules in the inferomedial right lower lobe, compatible with focal infectious/inflammatory process. Quality VTE Prophylaxis VTE prophylaxis: pharmacologic ordered
[2024-04-28] MEDS: HYDROCORTISONE 1% 30 GM CREAM 1 APPLIC TOPICAL ×2 (17:51→21:57)
[2024-04-28] MEDS: guaiFENesin 12 HR 600 MG TABCR 1200 MG PO (22:04)
[2024-04-28] MEDS: TIMOLOL MALEATE 0.5% OP SOLN 5 ML BOTTLE 1 DROP EACH EYE (22:04)
[2024-04-29] VITALS (8 sets, daily range): BP systolic 112–124; BP diastolic 63–66; PULSE 70–105; RESP 16–18; TEMP 36.4–36.5; O2SAT 95–100
[2024-04-29] MEDS: ALBUTEROL SULFATE NEB 2.5 MG/3 ML INH INHALATION ×3 (02:37→14:46)
[2024-04-29] MEDS: amLODIPine BESYLATE 5 MG TABLET PO (09:23)
[2024-04-29] MEDS: APIXABAN 2.5 MG TABLET PO (09:23)
[2024-04-29] MEDS: guaiFENesin 12 HR 600 MG TABCR 1200 MG PO (09:23)
[2024-04-29] MEDS: POTASSIUM CHLORIDE 10 MEQ ER TABLET PO (09:23)
[2024-04-29] MEDS: LOSARTAN POTASSIUM 50 MG TABLET PO (09:24)
[2024-04-29] MEDS: levoFLOXacin 750 MG TABLET PO (09:24)
[2024-04-29] MEDS: METOPROLOL SUCCINATE EXT REL 50 MG TABCR PO (09:24)
[2024-04-29] MEDS: HYDROCORTISONE 1% 30 GM CREAM 1 APPLIC TOPICAL (09:27)
[2024-04-29] MEDS: OSELTAMIVIR PHOSPHATE 30 MG CAPSULE PO (09:31)
--- NOTE | 2024-04-29 16:14 | P.DS_ITS ---
DS: Admitting Diagnosis Discharge Date 04/29/24 Admitting Diagnosis Coronary artery disease Atrial fibrillation Community-acquired pneumonia Influenza a RSV Generalized weakness DS: Discharge Diagnosis Discharge Diagnosis (1) Community acquired pneumonia due to influenza A virus: Code(s): J09.X1 - Influenza due to identified novel influenza A virus with pneumonia Status: Acute (2) Respiratory syncytial virus (RSV): Code(s): B33.8 - Other specified viral diseases Status: Acute (3) General weakness: Code(s): R53.1 - Weakness Status: Acute (4) CAD (coronary artery disease): Qualifiers: Coronary Disease-Associated Artery/Lesion type: unspecified vessel or lesion type [place] vs. transplanted heart: unspecified whether [place] or transplanted heart Associated angina: unspecified whether angina present Qualified Code(s): I25.10 - Atherosclerotic heart disease of [place] coronary artery without angina pectoris Code(s): I25.10 - Atherosclerotic heart disease of [place] coronary artery without angina pectoris Status: Chronic (5) Atrial fibrillation: Qualifiers: Atrial fibrillation type: paroxysmal Qualified Code(s): I48.0 - Paroxysmal atrial fibrillation Code(s): I48.91 - Unspecified atrial fibrillation Status: Chronic (6) Hypertension: Qualifiers: Hypertension type: primary hypertension Qualified Code(s): I10 - Essential (primary) hypertension Code(s): I10 - Essential (primary) hypertension Status: Chronic DS: Summary Hospital Course Reason for hospitalization: Coronary artery disease Atrial fibrillation Community-acquired pneumonia Influenza a RSV Generalized weakness Hospital Course: This is an 88-year-old female with a significant past medical history of glaucoma, hypertension, atrial fibrillation, stroke, [place], [place], coronary artery disease with stent placement who presented to the hospital with complaints of cough and generalized weakness. Workup in the hospital included a chest x-ray which was negative. Chest CT which showed small grouped ground-glass nodules in the inferior medial lower lobe compatible with focal infectious / inflammatory process. Initial labs showed a normal white blood cell count of 8.0, hemoglobin 15.5, sodium 136, potassium 3.2, creatinine 0.68, total bili 2.9. A UA was obtained which showed cloudy urine appearance, 1+ urine ketones, otherwise negative. Respiratory panel was positive for influenza a and RSV. Patient was started on Tamiflu and Levaquin. PT and OT worked with patient and recommended home health. Patient is stable for discharge at this time. She will need to finish her course of antibiotics and Tamiflu, then follow up with PCP in 1 week. Final diagnosis: Community-acquired pneumonia, influenza a, RSV, physical deconditioning Status at Discharge Cognitive/behavioral status at discharge: Alert oriented x4 Functional status at discharge: independent ambulation Overall status at discharge: patient is progressing back to baseline Time Spent with Patient Time attestation: Total time spent providing and/or coordinating discharge services: Time spent: Greater than 30 minutes Exam Narrative: General: In no acute distress, well nourished Cardiac: Normal S1 and S2. No murmur, gallops or friction rubs, peripheral pulses intact. Respiratory: Lungs upper lobe Rhonchi/course, no adventitious lung sounds, currently on room air Gastrointestinal: soft, non-distended, non-tender, normoactive bowel sounds. : voiding without difficulty. Neuro: Alert and oriented x4 DS: Data Data Completed and Pending Completed studies during hospitalization: Chest x-ray Chest CT Pending studies at discharge: None Procedures/Treatments: None Discharge Plan Discharge Attending physician on discharge: Murali Hardwick Discharging Clinician: Bethany Reardon Anticipated Discharge Date/Time: 04/29/24 09:15 Patient Disposition: Home, Self-Care Activity: as tolerated Diet: as tolerated and heart healthy Discharge Instructions: Care Coordination: Patient to have [facility] for PT/OT eval and treat, and nursing home. Their phone number [phone] if you have any questions; they will contact you to schedule their first visit. * Finish all your antibiotic even if you are feeling better * Follow up with primary care doctor in 1 week. Patient Instructions: Antibiotic Form, Levofloxacin (By mouth), Community Acquired Pneumonia (DC) Patient Language: Dutch Stand Alone Forms: General Discharge Information Follow-up/Referrals: Carmenza Fernandez MD [Primary Care Provider] - 1 Week Discharge Medications: New guaifenesin [Mucus Relief ER] 600 mg Tablet Extended Release 12hr 1,200 mg PO Q12HR Qty: 20 0RF oseltamivir [Tamiflu] 30 mg Capsule 30 mg PO Q12HR Qty: 5 0RF levofloxacin 750 mg tablet 750 mg PO Q48H Qty: 3 0RF Continued Eliquis 2.5 mg tablet 2.5 mg PO Q12H amlodipine 5 mg tablet 5 mg PO DAILY losartan 50 mg tablet 50 mg PO DAILY metoprolol succinate 50 mg tablet extended release 24 hr 50 mg PO DAILY nitroglycerin 0.4 mg tablet, sublingual 0.4 mg sublingual Q5M PRN (Reason: chest pain) Rx Instructions: do not exceed 3 doses per episode timolol maleate 0.5 % drops 1 drp EACH EYE HS tramadol 50 mg tablet 25 mg PO Q6H PRN (Reason: pain) Qty: 15 0RF rosuvastatin 10 mg tablet 10 mg PO .qod Qty: 90 2RF (DME) [facility] See Rx Instructions .Route .MEDSUPPLY Qty: 1 0RF Rx Instructions: As directed for foot drop secondary to CVA potassium chloride 10 mEq capsule, extended release 10 meq PO BID Qty: 180 0RF Date of admission: 04/28/24 10:23 Primary Care Provider: Carmenza Fernandez Admitting Provider: Marguerite Palmer Attending physician on admission: Bethany Reardon Condition: Improved Quality VTE Prophylaxis VTE prophylaxis: pharmacologic ordered Hospitalist MIPS Heart Failure (Exclusion) Patient has history of Heart Transplant or Left Ventricular Assistive Device?: No IF YES, STOP HERE Heart Failure (Qualifier) Patient has current or prior documentation of LVEF less than or equal to 40%, or mod/servere depressed LVSF?: No IF NO, STOP HERE
== END 2024-04-29 17:05 | disposition home health service (06) | DRG 195 ==
LOC: ANHED 08:49 → ANH3MEDSUR 09:14
PROVIDERS: Emergency Medicine; Admitting Provider Hospitalist; Emergency Provider Emergency Medicine; PCP Family Medicine; Visit Provider Nurse Practitioner Acute Care
DX: J09.X1 Influenza due to identified novel influenza A virus with pneumonia (principal); B33.8 Other specified viral diseases; E78.5 Hyperlipidemia, unspecified; I25.10 Atherosclerotic heart disease of native coronary artery without angina pectoris; I48.0 Paroxysmal atrial fibrillation; I10 Essential (primary) hypertension; I25.2 Old myocardial infarction; G47.33 Obstructive sleep apnea (adult) (pediatric); H40.9 Unspecified glaucoma; Z86.73 Personal history of transient ischemic attack (TIA), and cerebral infarction without residual deficits; Z95.5 Presence of coronary angioplasty implant and graft; Z96.653 Presence of artificial knee joint, bilateral; Z79.01 Long term (current) use of anticoagulants; Z20.822 Contact with and (suspected) exposure to COVID-19
CPT/HCPCS: 36415; 71045; 71250; 80053; 81001; 83690; 85025; 87637; 94640; 96365; 97110; 97161; 97165; 97530; 99285; A9270; G0378; J1956

== ENCOUNTER 2024-06-24 10:14 | Emergency (ER) | payer MEDICARE, SELFPAY ==
--- NOTE | ~2024-06-24 | XR_ITS ---
EXAMINATION: XR chest 2V DATE: 06/24/2024 11:33 INDICATION: Chest pain TECHNIQUE: frontal and lateral views of the chest were obtained. COMPARISON: Chest radiograph and CT dated 04/27/2024 FINDINGS: Increased retrocardiac opacities in the left lower lung zone. Right lung remains clear. No pleural ef fusion or pneumothorax. Cardiomegaly. Moderate to severe degenerative skeletal changes in the spine a nd both shoulders with advanced left glenohumeral osteoarthritis. IMPRESSION: 1. Increasing opacities in the left lower lung zone which could represent atelectasis or pneumonia. Reviewed, dictated and finalized at location A. IMPRESSION: 1. Increasing opacities in the left lower lung zone which could represent atele ctasis or pneumonia.
[2024-06-24 10:26] VITALS: BP 111/63; PULSE 67; RESP 18; TEMP 36.4; O2SAT 98
[2024-06-24 10:30] VITALS: O2SAT 97
--- NOTE | 2024-06-24 10:32 | ECG_ITS ---
Test Date: 2024-06-24 10:37:44 Measurements Intervals [place] Rate: 62 P: 0 [place]: 0 QRS: 20 QRSD: 86 T: 171 QT: 418 QTc: 425 Interpretive Statements ATRIAL FIBRILLATION ST DEVIATION AND MODERATE T-WAVE ABNORMALITY, CONSIDER ANTEROLATERAL ISCHEMIA [-0.1+ mV T WAVE IN V3-V6] No previous ECG available for comparison Electronically Signed On 06-24-2024 11:40:46 CDT by Ottoniel Cuba M.D.
--- NOTE | 2024-06-24 10:45 | ED.GENADULT ---
HPI - General Adult General Chief complaint: Chest Pain Stated complaint: chest pain Time Seen by Provider: 06/24/24 10:32 History of Present Illness HPI narrative: 89-year-old female presenting to the emergency department for evaluation for substernal chest pain that started approximately 9:00 a.m.. Patient denies any radiation of the pain to her back neck or arms. Patient does have prior history of [place] and 2009 does have stents at [facility] in [facility]. Also does have history AFib but is rate controlled upon arrival to the emergency department. Patient states initially her pain was a 7 or 8 in she was treated with aspirin and nitro by EMS. Upon arrival emergency department patient states her pain is now 4 5. Patient does have reproducible chest wall tenderness to palpation. Patient denies any falls or injuries or recent illness. Patient was well-appearing at time of evaluation. Related Data Home Medications ?Medication ?Instructions ?Recorded ?Confirmed ?Last Taken ?Type amlodipine 5 mg tablet 5 mg PO DAILY 07/08/22 05/05/24 04/27/24 09:00 History apixaban 2.5 mg tablet (Eliquis) 2.5 mg PO Q12H 07/08/22 05/05/24 04/27/24 09:00 History losartan 50 mg tablet 50 mg PO DAILY 07/08/22 05/05/24 04/27/24 09:00 History metoprolol succinate 50 mg 50 mg PO DAILY 07/08/22 05/05/24 04/27/24 09:00 History tablet,extended release 24 hr nitroglycerin 0.4 mg sublingual 0.4 mg sublingual Q5M PRN chest 07/08/22 05/05/24 Unknown History tablet pain timolol maleate 0.5 % eye drops 1 drp EACH EYE HS 07/08/22 05/05/24 04/26/24 History Allergies Allergy/AdvReac Type Severity Reaction Status Date / Time amoxicillin Allergy Intermediate Diarrhea Verified 06/24/24 10:31 meperidine Allergy Intermediate Nausea and Verified 06/24/24 10:31 Vomiting propoxyphene Allergy Intermediate Unknown Verified 06/24/24 10:31 Sulfa (Sulfonamide Allergy Intermediate Itching Verified 06/24/24 10:31 Antibiotics) atorvastatin AdvReac Severe Muscle Pain Verified 06/24/24 10:31 pravastatin AdvReac Severe Muscle Pain Verified 06/24/24 10:31 Review of Systems Review of Systems: All systems reviewed & are unremarkable except as noted in HPI and below PMFSH Past Medical History Medical History RSV infection 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 Erazo [facility] AMI (acute myocardial infarction) [place] (obstructive sleep apnea) Hypertension Hemiparesis due to recent stroke Atrial fibrillation Surgical History Surgical History History of coronary artery stent placement History of total bilateral knee replacement Social History Social History Smoking status: Never smoker Alcohol intake: former Substance use: never Substance use type: does not use Do You Feel Safe in your Home?: Yes Lack of Transportation: No Lack of Food: Never True Current Housing: I Have Housing Concerned About Future Housing: No Difficulty Paying Gas/Electric Bills: No Difficulty Paying for Meds: No Currently Unemployed: No Education: Decline to Answer Difficulty w/ Childcare or Family Care: No Living arrangements: with family Additional living arrangements comments: Living with her daughter at this time Occupation/Education: retired Spiritual care concerns: No Agree to blood products: Yes Exam Narrative: APPEARANCE: Well appearing, no pain, no distress, well-nourished. HEAD: normocephalic, atraumatic. EYES: PERRLA/EOMI, conjunctivae clear. NOSE: Normal no drainage EARS:TMS clear with good light reflex. THROAT: Pharynx clear, no exudate. NECK: Supple. No adenopathy, no masses. RESPIRATORY: Airway patent, respirations nonlabored. Clear to auscultation bilaterally, no rales, rhonchi, wheezing. CARDIOVASCULAR: Regular rate and rhythm without murmurs rubs or gallops. ABDOMINAL: Soft, nontender, nondistended, normal bowel sounds MUSCULOSKELETAL: Reproducible chest wall tenderness to palpation NEURO: Alert. Cranial nerves II through XII intact. Good gait. Good coordination SKIN: Warm, dry. Normal Color Course Vital Signs Vital signs: Vital Signs Temperature 97.6 F 06/24/24 10:26 Pulse Rate 67 06/24/24 10:26 Respiratory Rate 18 06/24/24 10:26 Blood Pressure 111/63 06/24/24 10:26 Pulse Oximetry 98 06/24/24 10:26 Oxygen Delivery Room Air 06/24/24 10:26 Temperature 97.6 F 06/24/24 10:26 Pulse Rate 62 06/24/24 14:55 Respiratory Rate 19 06/24/24 14:55 Blood Pressure 130/58 L 06/24/24 14:55 Pulse Oximetry 98 06/24/24 14:55 Oxygen Delivery Room Air 06/24/24 10:30 Medical Decision Making MDM Narrative Medical decision making narrative: 89-year-old female presents emergency department for evaluation for reproducible chest wall pain. Patient is currently afebrile with no leukocytosis hemoglobin 13.8. Patient has no acute abnormalities on her CMP. Patient had negative serial troponins. Chest x-ray shows no acute cardiopulmonary abnormality. EKG shows rate controlled atrial fibrillation that is similar to previous. On re-evaluation patient states he does feel improved. Patient's pain is still or reproducible to palpation. Checked musculoskeletal etiology with the negative serial troponins and reproducibility of her symptoms. All questions concerns were addressed patient was comfortable the plan for discharge and close follow-up. Differential Diagnosis Differential Diagnosis: ACS, pneumonia, costochondritis, pleurisy, chest wall contusion, pneumothorax Vital Signs Vital Signs: Vital Signs Temperature 97.6 F 06/24/24 10:26 Pulse Rate 67 06/24/24 10:26 Respiratory Rate 18 06/24/24 10:26 Blood Pressure 111/63 06/24/24 10:26 Pulse Oximetry 98 06/24/24 10:26 Oxygen Delivery Room Air 06/24/24 10:26 Temperature 97.6 F 06/24/24 10:26 Pulse Rate 62 06/24/24 14:55 Respiratory Rate 19 06/24/24 14:55 Blood Pressure 130/58 L 06/24/24 14:55 Pulse Oximetry 98 06/24/24 14:55 Oxygen Delivery Room Air 06/24/24 10:30 Lab Data Lab results reviewed: Yes I reviewed the patient's lab results. 06/24/24 10:43 06/24/24 10:43 Labs: Lab Results 06/24/24 06/24/24 Range/Units 10:43 13:21 WBC 7.9 (4.5-10.0) K/mm3 RBC 4.73 (4.2-5.4) M/mm3 Hgb 13.8 (12.0-15.0) g/dL Hct 43.2 (37.0-47.0) % MCV 91.3 (80-100) fl MCH 29.2 (26-34) pg MCHC 31.9 L (32-36) g/dl RDW 14.5 (11.5-14.5) % Plt Count 188 (150-375) k/mm3 MPV 9.8 (7.4-10.4) fl Immature Gran % (Auto) 0.3 (0-0.5) % Neut % (Auto) 61.1 (45.5-73.1) % Lymph % (Auto) 24.5 (18.3-44.2) % [place] % (Auto) 11.1 H (2.6-8.5) % Eos % (Auto) 2.2 (0-4.4) % Baso % (Auto) 0.8 (0.2-1.2) % Lymph # (Auto) 1.92 (0.9-3.2) K/mm3 [place] # (Auto) 0.9 H (0.1-0.6) K/mm3 Eos # (Auto) 0.2 (0-0.3) K/mm3 Baso # (Auto) 0.1 (0.0-0.1) K/mm3 Abs Immat Gran (auto) 0.02 (0.00-0.031) K/mm3 Absolute Neuts (auto) 4.8 (1.3-6.7) K/mm3 Absolute Nucleated RBC 0.000 (0.0-0.012) K/mm3 Nucleated RBC % 0.0 (0.0-0.2) % PT 14.5 (11.1-14.7) Seconds INR 1.1 APTT 28.4 (22.3-36.8) Seconds Sodium 141 (137-145) mmol/L Potassium 3.9 (3.4-5.0) mmol/L Chloride 105 (98-107) mmol/L Carbon Dioxide 29 (22-30) mmol/L Anion Gap 7 (4-12) mmol/L BUN 20 H (7-17) mg/dL Creatinine 0.62 L (0.7-1.0) mg/dL Estim Creat Clear Calc 41 ml/min Estimated GFR > 60 (59 - ) Glucose 87 (65-110) mg/dL Calcium 9.3 (8.4-10.2) mg/dL Total Bilirubin 1.8 H (0.2-1.3) mg/dL AST 24 (14-36) U/L ALT 17 (6-35) U/L Alkaline Phosphatase 58 (38-126) U/L Troponin I < 0.012 < 0.012 (0.000-0.034) ng/mL Total Protein 7.0 (6.3-8.2) g/dL Albumin 4.1 (3.5-5.1) g/dL Lipase 82 (23-300) U/L Imaging Data Radiologist's impression: Impressions Chest X-Ray 06/24/24 11:36 IMPRESSION: 1. Increasing opacities in the left lower lung zone which could represent atelectasis or pneumonia. Discharge Plan Discharge Clinical Impression: Acute chest wall pain Patient Disposition: Home Condition: Stable Instructions: Antibiotic Form, Chest Wall Pain (ED) Additional Instructions: Tramadol as needed for chest wall pain. Have close follow-up with your primary care physician. If you have any worsening symptoms then please call or return to the emergency department. Patient Language: [place] Prescriptions: New tramadol 50 mg tablet 50 mg PO Q12H PRN (Reason: pain) Qty: 14 0RF No Action Pulmicort Flexhaler 90 mcg/actuation aerosol powdr breath activated 1 inh inhalation Q12H Qty: 1 0RF Eliquis 2.5 mg tablet 2.5 mg PO Q12H amlodipine 5 mg tablet 5 mg PO DAILY losartan 50 mg tablet 50 mg PO DAILY metoprolol succinate 50 mg tablet extended release 24 hr 50 mg PO DAILY nitroglycerin 0.4 mg tablet, sublingual 0.4 mg sublingual Q5M PRN (Reason: chest pain) Rx Instructions: do not exceed 3 doses per episode timolol maleate 0.5 % drops 1 drp EACH EYE HS guaifenesin [Mucus Relief ER] 600 mg Tablet Extended Release 12hr 1,200 mg PO Q12HR Qty: 20 0RF levofloxacin 750 mg tablet 750 mg PO Q48H Qty: 3 0RF rosuvastatin 10 mg tablet 10 mg PO .qod Qty: 90 2RF (DME) [facility] See Rx Instructions .Route .MEDSUPPLY Qty: 1 0RF Rx Instructions: As directed for foot drop secondary to CVA potassium chloride 10 mEq capsule, extended release 10 meq PO BID Qty: 180 0RF tramadol 50 mg tablet 25 mg PO Q6H PRN (Reason: pain) Qty: 15 0RF Follow-up/Referrals: Carmenza Fernandez MD [Primary Care Provider] -
[2024-06-24 10:48] LABS: Basophils Absolute Auto 0.1 K/mm3 (0.0-0.1); Basophils Percent Auto 0.8 % (0.2-1.2); Eosinophils Absolute Auto 0.2 K/mm3 (0-0.3); Eosinophils Percent Auto 2.2 % (0-4.4); Hematocrit 43.2 % (37.0-47.0); Hemoglobin 13.8 g/dL (12.0-15.0); Immature Granulocyte Absolute 0.02 K/mm3 (0.00-0.031); Immature Granulocyte Percent A 0.3 % (0-0.5); Lymphocytes Absolute Auto 1.92 K/mm3 (0.9-3.2); Lymphocytes Percent Auto 24.5 % (18.3-44.2); Mean Corpuscular HGB Conc 31.9 g/dl (32-36); Mean Corpuscular Hemoglobin 29.2 pg (26-34); Mean Corpuscular Volume 91.3 fl (80-100); Mean Platelet Volume 9.8 fl (7.4-10.4); Monocytes Absolute Auto 0.9 K/mm3 (0.1-0.6); Monocytes Percent Auto 11.1 % (2.6-8.5); Neutrophils Absolute Auto 4.8 K/mm3 (1.3-6.7); Neutrophils Percent Auto 61.1 % (45.5-73.1); Platelet Count Result 188 k/mm3 (150-375); Red Blood Count 4.73 M/mm3 (4.2-5.4); Red Cell Distribution Width 14.5 % (11.5-14.5); White Blood Count 7.9 K/mm3 (4.5-10.0)
[2024-06-24 10:57] LABS: Alanine Aminotransferase 17 U/L (6-35); Albumin Level 4.1 g/dL (3.5-5.1); Alkaline Phosphatase 58 U/L (38-126); Anion Gap 7 mmol/L (4-12); Aspartate Amino Transferase 24 U/L (14-36); Bilirubin,Total 1.8 mg/dL (0.2-1.3); Blood Urea Nitrogen 20 mg/dL (7-17); Calcium 9.3 mg/dL (8.4-10.2); Carbon Dioxide 29 mmol/L (22-30); Chloride 105 mmol/L (98-107); Estimated CRCL calculation 41 ml/min; Estimated Glomerular Filt Rate > 60; Glucose 87 mg/dL (65-110); Lipase 82 U/L (23-300); Potassium 3.9 mmol/L (3.4-5.0); Sodium 141 mmol/L (137-145)
[2024-06-24 11:00] LABS: INR 1.1; Prothrombin Time 14.5 Seconds (11.1-14.7)
[2024-06-24 11:01] LABS: Partial Thromboplastin Time 28.4 Seconds (22.3-36.8)
[2024-06-24 11:09] LABS: Troponin I < 0.012 ng/mL (0.000-0.034)
[2024-06-24] MEDS: MORPHINE SULFATE (*CRX) 2 MG/ML INJ IV PUSH (11:09)
[2024-06-24 11:18] VITALS: BP 141/77; PULSE 68; RESP 19; O2SAT 96
[2024-06-24 13:03] VITALS: BP 132/85; PULSE 79; RESP 18; O2SAT 99
--- NOTE | 2024-06-24 13:56 | ECG_ITS ---
Test Date: 2024-06-24 14:02:27 Measurements Intervals [place] Rate: 65 P: 0 NE: 0 QRS: 4 QRSD: 87 T: 152 QT: 435 QTc: 453 Interpretive Statements ATRIAL FIBRILLATION VOLTAGE CRITERIA FOR LVH [MEETS CRITERIA IN ONE OF: R(aVL), S(V1), R(V5), R(V5/V6)+S(V1)] ST DEVIATION AND MODERATE T-WAVE ABNORMALITY, CONSIDER ANTEROLATERAL ISCHEMIA [-0.1+ mV T WAVE IN V3-V6] Compared to ECG 06/24/2024 10:37:44 Left ventricular hypertrophy now present T-wave abnormality still present Possible ischemia still present Electronically Signed On 06-25-2024 15:59:58 CDT by Lea Mcclain
[2024-06-24 14:02] LABS: Troponin I < 0.012 ng/mL (0.000-0.034)
[2024-06-24 14:55] VITALS: BP 130/58; PULSE 62; RESP 19; O2SAT 98
--- OUTSIDE RECORDS SUMMARY | 2024-06-24 16:26 | XMS_ITS | Encounter Summary ---
Author Organization [facility] Address [address] [place] [address] Care Team Providers Care Emt P Name Role Phone Evens Mattson MD Primary Care Provider Unavailab gege Vega MD, Robert Unavailable [phone] Janee Ahn ANP-BC Unavailable [phone] Tanvi Cordova NP Unavailable [phone] Wilbert Kimbrough MD Unavailable [phone] Spencer Nguyen MD Unavailable Unavailable Tahir WigginsC Unavailable [phone] Carmenza Fernandez MD Primary Care Provider [phone] Encounter Details Date Type Department Care Team (Latest Contact Info) Description 12/28/2017 Abstract [facility] Adelia Abarca MD [...] Care Team (Late st Contact Info) Description 07/03/2024 2:30 PM CDT Office Visit [facility] THREE [facility] [address] [place] [address] Samia Das MD Three [facility]. [address] [place], [place] [address] 11/10/2024 11:00 AM CDT Office Visit [facility]-[address] [phone] Juan Luis Erazo MD 3 [facility] [address] [place] [phone] documented as of this encounter Visit Diagnoses Not on filedocumented in this encounter Care Teams Emt P Relationship Specialty Start Date End Date Evens Mattson MD PCP - General INTERNAL MEDICINE 02/28/16 09/30/23 Carmenza Fernandez MD [address] [place] [address] PCP - General FAMILY PRACTICE 10/01/23 Luis Angel Moreno MD CARDIOVASCULAR DISEASE 02/28/16 Janee Ahn, ANP- [address] [place] [phone] NURSE PRACTITIONER 02/28/16 Tanvi Cordova NP [address] [place] [address] NURSE PRACTITIONER 04/27/16 Wilbert Kimbrough MD [address] [place] [address] [address] [place] [phone] CARDIOVASCULAR DISEASE 03/15/17 Spencer Nguyen MD [address] [facility] [address] [place] [address] EP Squad Sergeant CLINICAL CARDIAC ELECTROPHYSIOLOGY 03/22/17 Tahir Wiggins PA-C [address] [place] [address] Electrophysiology 03/22/17 documented as of this encounter
--- OUTSIDE RECORDS SUMMARY | 2024-06-24 16:26 | XMS_ITS | Continuity of Care Document ---
Author Organization [facility] Address [address] [facility] [address] [place] [address] Phone Care Team Providers Care Machine Shop Helper Name Role Phone Chad PT, DPT, Sd Unavailable Unavailable Procedures Procedure Date Therapeutic Activities Therapeutic Exercise Therapeutic Activities Therapeutic Exercise Therapeutic Exercise Therapeutic Activities Therapeutic Activities Therapeutic Exercise PT Evaluation Low Complexity Therapeutic Activities Advance Directives Directive Yes / No Effective Date File Name No Information Encounters Encounter Description Practice Location Reason(s) For Visit Diagnoses Date Provider Providers Copied on Encounter [facility], [address] [address], [place], [place], [id number], tel:[phone] [facility] No Information Chad Beaver. . Referring Provider: Snoiya Zurita [facility], [place], [address]. tel:[phone] [facility] [address], [id number], tel:[phone] [facility] No Information Chad Beaver. . Referring Provider: Jose Alonzo, [address] [facility] [address], [place], [address]. tel:[phone] [facility] [address] [address], [place], [place], [id number], tel:[phone] [facility] No Information Chad Beaver. . Referring Provider: Jose Alonzo, [address] [facility] [address], [place], [address]. tel:[phone] [address], [place], [place], [id number], tel:[phone] [facility] No Information Chad Beaver. . Referring Provider: Jose Alonzo, [address] [facility] [address], [place], [address]. tel:[phone] [address] [facility] [address], [place], [place], [id number], tel:[phone] [facility] No Information Chad Beaver. . Referring Provider: Jose Alonzo, [address] [facility] [address], [place], [address]. tel:[phone] Family History Family Member Type Diagnosis Age At Onset No Information Payers Payer name Insurance type Covered libertarian ID Authorjimia iker(s) Medicare [place] MB [id number] [facility] [id number] Social History Type Description Quantity Date Captured [...]
--- OUTSIDE RECORDS SUMMARY | 2024-06-24 16:26 | XMS_ITS | Referral Summary ---
Author Organization [facility] Address [address] [place] [address] Care Team Providers Care Avionics Shop Supervisor Name Role Phone Carmenza Fernandez MD Primary Care Provider [phone] Encounters Date Type Department Care Team Description 06/15/2024 Results Follow-Up [facility] [address] [place] [address] [address] [place] [phone] Janee Moya MA 06/13/2024 7:00 PM CDT - 06/13/2024 11:59 PM CDT Hospital Encounter [facility] [address] [place] [address] HUDSON (obstructive sleep apnea) Discharge Disposition: Discharge to home or self care 06/12/2024 Telephone [facility] [address] [place] [address] [address] [place] [phone] Janee Moya MA from Last 3 Months Allergies Active Allergy [...] nightly as needed for sleep 5 tablet Active Active Problems Problem Noted Date Diagnosed Date HUDSON (obstructive sleep apnea) 06/15/2024 Social History Tobacco Use Types Packs/Day Years [...] Comments Blood Pressure 142/80 03/06/2024 10:45 AM DIRECTOR OF QUALITY CONTROL Pulse 74 03/06/2024 10:45 AM DIRECTOR OF QUALITY CONTROL Temperature 36.6 C (97.9 F) 06/01/2023 9:39 AM CDT Respiratory Rate 16 06/01/2023 12:00 PM CDT Oxygen Saturation 98% 03/06/2024 10:45 AM DIRECTOR OF QUALITY CONTROL Inhaled Oxygen Concentration - - Weight 68 kg (149 lb 14.6 oz) 06/01/2023 9:39 AM CDT Height 157.5 cm (5' 2 ) 03/06/2024 10:45 AM DIRECTOR OF QUALITY CONTROL Body Mass Index - - Plan of Treatment Not on file Procedures Procedure Name Priority Date/Time Associated Diagnosis Comments PSG (COMPLEX) Routine 06/14/2024 1:24 PM CDT HUDSON (obstructive sleep apnea) from Last 3 Months Results * PSG-Sleep Provider Use Only (06/14/2024 1:24 PM CDT) Impressions Leena Logan MD - 06/14/2024 1:24 PM CDT Indication for study: Ms. Anthony is a 88-year-old with chief complaints of unrefreshing sleep and excessive daytime sleepiness. The patient's Lambert Sleepiness scale score is 16 Vital statistics: Age: 88 years Height: 62 in Weight: 149 lb BMI: 27.4 Procedure: A polysomnographic sleep study was performed. Variables monitored and recorded during the study; EEG, EOG, EKG, Chin EMG, snoring, lower extremity EMG, nasal and oral airflow, chest and abdominal wall movements, oxygen saturation and audio/video monitoring . Unless otherwise noted, polysomnogram was recorded and scored in accordance with recommended parameters as outlined in the AASM Manual for the Scoring of Sleep and Associated Events, Version 2.6. Hypopneas were scored in accordance with acceptable parameters as outlined in Chapter VIII, Part 1: Rules for Adults, Category D, Section 1B. Description of polysomnography findings: Patient had 437.1 minute of monitored time. 282 minutes of total sleep was present. Sleep efficiency was 64.5%. Latency from lights out to stage N1 was 47.9 minute, latency to stage N2 from sleep onset was 1.5 minute, latency to stage REM from sleep onset was 97.5 minute. Sleep stage recording stage wake of 155.5 minute. Stage non-REM comprised 220 minutes (78% total sleep time). This includes stage N1 was 38.5 minute (13.7% total sleep time), stage N2 181.5 minutes (64.4% total sleep time). Stage REM comprised 62 minute (22% total sleep time). Arousal analysis revealed total of 41 arousals. The arousal index was 8.7. There were 30 spontaneous arousals. Spontaneous arousal index was 6.4. The apnea-hypopnea index was 13.6. The central apnea-hypopnea index was 7.2. There were 16 mixed apneas, 34 central apneas and 14 hypopneas recorded. Baseline oxygen saturation was 95.6%. Lowest oxygen saturation was 90%. Snoring was mild Limb movement recording did not reveal any periodic limb movements. Average heart rate during wake was 70.7, and during sleep was 63.1. Impression: 1. Reduced sleep efficiency 2. Mild snoring. 3. Mild complex sleep disorder breathing. 4. Consider PAP titration to determine optimal pressure required to alleviate sleep disordered breathing 5. Sleep hygiene should be reviewed to assess factors that may improve sleep quality. 6. Weight management and regular exercise should be initiated or continued 7. Avoid alcohol sedatives and other MEDICAL ANTHROPOLOGIST depression that may worsen sleep apnea and disrupt normal sleep architecture 8. Patients with sleep apnea may have significant daytime hypersomnolence. If that is the case, driving or handling heavy machinery should be avoided until the apnea and excessive sleepiness have resolved. Narrative Leena Logan MD - 06/14/2024 1:24 PM CDT Ocst is ready for review Leena Logan MD SLEEP [facility]ENTER ORDERABLES Final Re sult from Last 3 Months Insurance MEDICARE [facility] MEDICARE [employer] [place] MEDICARE SUPPLEMENT Member Subscriber Plan / Payer (Ef fective 2008-Present) Name:Domenica Anthony Relation to Subscriber:Self Name:Domenica Anthony Payer ID:[id number] Type:COMMERCIAL Address: [id number] Care Teams Avionics Shop Supervisor Relationship Specialty Start Date End Date Carmenza Fernandez MD PCP - General Family Medicine 06/01/23
--- OUTSIDE RECORDS SUMMARY | 2024-06-24 16:26 | XMS_ITS | Clinical Summary ---
Author Organization [facility] Address [address] [place] [address] Care Team Providers Care Microbiology Technologist Name Role Phone Tiffanie Vega MD, Robert Unavailable [phone] Janee Ahn ANP-BC Unavailable [phone] Tanvi Cordova NP Unavailable [phone] Wilbert Kimbrough MD Unavailable [phone] Spencer Nguyen MD Unavailable Unavailable Tahir Wiggins PA-C Unavailable [phone] Carmenza Fernnadez MD Primary Care Provider [phone] Allergies Active Allergy Reactions Criticality Noted Date [...] 0.25%; as directed; 0; 0; 04-Nov-2011; Active 11/26/2011 Active potassium chloride CR (MICRO-K) 10 MEQ CR capsule Take 1 capsule (10 mEq total) by mouth 2 (two) times daily. 10/12/2021 Active Multiple Vitamins-Minera ls (CENTRUM SILVER 50+WOMEN OR) Take 1 tablet by mouth daily. Active nitroglycerin (NITROSTAT) 0.[address] 1 tablet (0.4 mg total) under the tongue every 5 (five) minutes as needed for Chest Pain (chest pain). Max 3 tabs, then call 911 25 tablet 1 01/08/2023 Active losartan (COZAAR) 50 MG tablet TAKE 1 TABLET(50 MG) BY MOUTH DAILY 90 tablet 08/10/2023 Active apixaban (ELIQUIS) 5 MG tablet Take 1 tablet (5 mg total) by mouth 2 (two) times daily. 180 tablet 3 10/01/2023 10/01/19 25 Active amLODIPine (NORVASC) 5 MG tablet TAKE 1 TABLET(5 MG) BY MOUTH DAILY 90 tablet 2 10/19/2023 Active metoprolol succinate ER (TOPROL-XL) 50 MG 24 hr tablet TAKE 1 TABLET(50 MG) BY MOUTH DAILY 90 tablet 04/06/2024 Active rosuvastatin (CRESTOR) 10 MG tabletIndicatio ns:Hyperlipidem ia TAKE 1 TABLET(10 MG) BY MOUTH EVERY OTHER DAY 45 tablet 1 05/01/2024 Active traMADol (ULTRAM) 50 MG tablet Take 1 tablet (50 mg total) by mouth every 4 (four) hours as needed for Pain. 01/26/2024 Active Active Problems Problem Noted Date Diagnosed Date Subdural hematoma 01/09/2022 Paroxysmal atrial fibrillation ([facility]) 03/29/2020 CVA (cerebral vascular accident) ([facility]) 04/05/2018 Thrombus of left atrial appendage 04/05/2018 Sepsis ([facility]) 04/05/2018 UTI (urinary tract infection) 04/05/2018 Acute ischemic stroke ([facility]) 04/05/19 19 Intracranial hemorrhage, spo ntaneous intraparenchymal, associated with arterial infarction, acute ([facility]) 04/05/2018 Current use of fci anticoagulation 018 Shortness of breath 01/26/2017 Persistent atrial fibrillation 04/07/2016 Angina, class III 04/07/2016 Dyspnea on exertion 03/22/2016 S/P coronary artery stent placement 03/16/2016 NSTEMI (non-ST elevated myoc ardial infarction) ([facility]) 01/28/2007 CAD (coronary artery disease), [place] coronary a rtery Overview (02/07/2016): s/p stent Essential hypertension Dyslipidemia Sleep apnea Overview (02/07/2016): does not wear CPAP TIA (transient ischemic attack) Left arm pain Resolved Problems Problem Noted Date Diagnosed Date Resolved Date Statin intolerance 03/16/2016 0 Encounters Date Type Department Care Team Description 05/12/2024 11:45 AM CDT Office Visit [facility] [address] Juan Luis Erazo MD Atrial Fibrillation (6MO); Coronary Artery Disease 05/12/2024 Travel from Last 3 Months Family History Relation Status Comments Brother 1 Alive CABG Brother 2 Child 1 Alive Child 2 Alive Child 3 Alive Child 4 Alive Child 5 Father (Age 48) CAD, [place] Maternal Grandfather (Age 87 ) Stroke Maternal [...] Sign Reading Time Taken Comments Blood Pressure 122/72 05/12/2024 12:01 PM CDT Pulse 88 05/12/2024 12:01 PM CDT Temperature 36.4 C (97.5 F) 03/29/2020 11:09 AM COOKING CASING AND DRYING SUPERVISOR Respiratory Rate 14 03/29/2020 11:0 9 AM COOKING CASING AND DRYING SUPERVISOR Oxygen Saturation 97% 05/12/2024 12: 01 PM CDT Inhaled Oxygen Concentration - - Weight 60.7 kg (133 lb 12.8 oz) 025 12:01 PM CDT Height 157.5 cm (5' 2 ) 05/12/2024 12:0 1 PM CDT Body Mass Index 24.47 05/12/2024 12:01 PM CDT Plan of Treatment Upcoming Encounters Date Type Department Care Team (Late st Contact Info) Description 07/03/2024 2:30 PM CDT Office Visit [facility] [address] [place] [address] Samia Das MD Three [facility]. [facility] [address] [place] [address] 11/10/2024 11:00 AM CDT Office Visit [facility]-[address] [phone] Juan Luis Erazo MD 3 [facility] [address] [place] [phone] Health Maintenance Due Date Last Done Comments DTaP, Tdap and Td Vaccines (1 - Tdap) 06/20/1954 Annual Medicare Wellness Visit 06/20/2000 RSV Immunization or 60+ Years (1 - 1-dose 75+ series) 06/20/2010 ASCVD LDL 04/06/2019 04/06/2018, 08/22, 09/02/2016, Additional history exists Pneumococcal Vaccine: 50+ Years (2 of 2 - PCV) 10/21/2021 10/21/2020, 08/02/2019 COVID-19 Vaccine (5 - 2023- season) 2023 01/04/2022, 12/07/2020, 04/15/2020, Additional history exists PHQ-2 (Physician Valentine) 02/23/2024 Zoster Vaccines Completed 01/04/2022, 04/2020, 01/24/2021 Meningococcal B Vaccine Aged Out No [...] Comments LIPID PANEL Routine 04/06/2018 2:23 AM COOKING CASING AND DRYING SUPERVISOR from Last 3 Months or Most Recently Relevant to Health Maintenance Results * LIPID PANEL (04/06/2018 2:23 AM COOKING CASING AND DRYING SUPERVISOR) CHOLESTEROL 173 MG/DL 04/06/2018 7:31 AM [facility] Comment:DESIRABLE: <200 TRIGLYCERIDES 91 MG/DL 04/06/2018 7:31 AM [facility] Comment:<150 NORMAL HDL 60 >49 MG/DL 04/06/2018 7:31 AM [facility] LDL (CALCULATED) 95 MG/DL 04/06/19 7:31 AM [facility] Comment:<100 OPTIMAL VLDL CALCULATION 18 MG/DL 04/06/19 7:31 AM [facility] Comment:REFERENCE RANGE NOT ESTABLISHED CHOL/HDL RATIO 2.9 04/06/2018 7:31 AM [facility] Comment:REFERENCE RANGE NOT ESTABLISHED LDL/HDL 1.6 04/06/2018 7:31 AM [facility] Comment:REFERENCE RANGE NOT ESTABLISHED NON HDL CHOLESTEROL 113 MG/DL 04/06/2018 7:31 AM [facility] Comment:REFERENCE RANGE NOT ESTABLISHED 04/06/2018 2:23 AM COOKING CASING AND DRYING SUPERVISOR us Galdino Go MD LABORATORY Final Resul t [facility] [address] [place] [address], [place] [phone] [id number] from Last 3 Months or Most Recently Relevant to Health Maintenance Insurance MEDICARE MEDICARE Advance Directives Documents on File Type Date Recorded Patient Tooling Supervisor Expl anation Advance Directives and Living Will 04/07/2018 1:14 PM 02/23/11 LIVING WILL Power of Management Coordinator 04/07/2018 1:14 PM Advance Directives and Living Will 05/08/2017 ADVANCE DIRECTIVE Advance Directives and Living Will 05/08/2017 LIVING WILL Advance Directives and Living Will 05/08/2017 POWER OF MEDICAL REFERRAL COORDINATOR FO R HEALTH CARE Advance Directives and Living Will 05/08/2017 SHORT FORM POWER OF MEDICAL REFERRAL COORDINATOR Advance Directives and Living Will 03/15/2017 SHORT FORM POWER OF MEDICAL REFERRAL COORDINATOR Advance Directives and Living Will 03/15/2017 ADVANCE DIRECTIVE Advance Directives and Living Will 03/15/2017 LIVING WILL Advance Directives and Living Will 03/15/2017 POWER OF MEDICAL REFERRAL COORDINATOR FO R HEALTH CARE Advance Directives and Living Will 03/12/2017 ADVANCE DIRECTIVE Advance Directives and Living Will 03/12/2017 LIVING WILL Advance Directives and Living Will 03/12/2017 POWER OF MEDICAL REFERRAL COORDINATOR FO R HEALTH CARE Advance Directives and Living Will 03/12/2017 SHORT FORM POWER OF MEDICAL REFERRAL COORDINATOR Advance Directives and Living Will 03/12/2017 ADVANCE DIRECTIVE Advance Directives and Living Will 03/12/2017 LIVING WILL Advance Directives and Living Will 03/12/2017 POWER OF MEDICAL REFERRAL COORDINATOR FO R HEALTH CARE Advance Directives and Living Will 03/12/2017 SHORT FORM POWER OF MEDICAL REFERRAL COORDINATOR Advance Directives and Living Will 01/26/2017 ADVANCE DIRECTIVE Advance Directives and Living Will 01/26/2017 SHORT FORM POWER OF MEDICAL REFERRAL COORDINATOR Advance Directives and Living Will 01/26/2017 LIVING WILL Advance Directives and Living Will 01/26/2017 POWER OF MEDICAL REFERRAL COORDINATOR FO R HEALTH CARE Advance Directives and Living Will 11/17/2016 LIVING WILL Advance Directives and Living Will 11/17/2016 ADVANCE DIRECTIVE Advance Directives and Living Will 11/17/2016 POWER OF MEDICAL REFERRAL COORDINATOR FO R HEALTH CARE Advance Directives and Living Will 11/17/2016 SHORT FORM POWER OF MEDICAL REFERRAL COORDINATOR Advance Directives and Living Will 09/16/2016 ADVANCE DIRECTIVE Advance Directives and Living Will 09/16/2016 LIVING WILL Advance Directives and Living Will 09/16/2016 POWER OF MEDICAL REFERRAL COORDINATOR FO R HEALTH CARE Advance Directives and Living Will 09/02/2016 POWER OF MEDICAL REFERRAL COORDINATOR FO R HEALTH CARE Advance Directives and Living Will 09/02/2016 ADVANCE DIRECTIVE Advance Directives and Living Will 09/02/2016 LIVING WILL Advance Directives and Living Will 05/20/2016 LIVING WILL Advance Directives and Living Will 05/20/2016 ADVANCE DIRECTIVE Advance Directives and Living Will 05/20/2016 POWER OF MEDICAL REFERRAL COORDINATOR FO R HEALTH CARE Advance Directives and Living Will 04/16/2016 ADVANCE DIRECTIVE Advance Directives and Living Will 04/16/2016 LIVING WILL Advance Directives and Living Will 04/16/2016 POWER OF MEDICAL REFERRAL COORDINATOR FO R HEALTH CARE Advance Directives and [...] 6:30 AM 04/16/2018 4:34 PM Care Teams Microbiology Technologist Relationship Specialty Start Date End Date Carmenza Fernandez MD [address] [place] [address] PCP - General FAMILY PRACTICE 10/01/23 Luis Angel Moreno MD CARDIOVASCULAR DISEASE 02/28/16 Janee Ahn ANP-BC [address] [address] NURSE PRACTITIONER 02/28/16 Tanvi Cordova NP [address] [place] [address] NURSE PRACTITIONER 04/27/16 Wilbert Kimbrough MD [address] [place] [phone] CARDIOVASCULAR DISEASE 03/15/17 Spencer Nguyen MD [address] [place] [phone] EP Wood Boring Machine Operator CLINICAL CARDIAC ELECTROPHYSIOLOGY 03/22/17 Tahir Wiggins PA-C [address] [place] [phone] Electrophysiology 03/22/17
--- OUTSIDE RECORDS SUMMARY | 2024-06-24 16:26 | XMS_ITS | Encounter Summary ---
Author Organization [facility] Address [address] [place] [address] Care Team Providers Care Rn Family Practice Name Role Phone Evens Mattson MD Primary Care Provider Unavailab gege Vega MD, Robert Unavailable [phone] Janee Ahn ANP-BC Unavailable [phone] Tanvi Cordova NP Unavailable [phone] Wilbert Kimbrough MD Unavailable [phone] Spencer Nguyen MD Unavailable Unavailable Tahir WigginsC Unavailable [phone] Carmenza Fernandez MD Primary Care Provider [phone] Encounter Details Date Type Department Care Team (Late st Contact Info) Description 10/18/2014 Abstract [facility] [address] [place] [address] Luis Angel Moreno MD [address] [facility] [address] [place] [address] Social History Tobacco Use Types Packs/Day [...] Description 07/03/2024 2:30 PM CDT Office Visit [facility] THREE [facility], [address] [place], [place] [phone] Samia Das MD Three [facility]. [address] [place], [place] [address] 11/10/2024 11:00 AM CDT Office Visit [facility]-[address] [phone] Juan Luis Erazo MD 3 [facility] [address] [place] [address] documented as of this encounter Visit Diagnoses Not on filedocumented in this encounter Care Teams Rn Family Practice Relationship Specialty Start Date End Date Evens Mattson MD PCP - General INTERNAL MEDICINE 02/28/16 09/30/23 Carmenza Fernandez MD [address] [place] [address] PCP - General FAMILY PRACTICE 10/01/23 Luis Angel Moreno MD CARDIOVASCULAR DISEASE 02/28/16 Janee Ahn, ANP- [address] [place] [phone] NURSE PRACTITIONER 02/28/16 Tanvi Cordova NP [address] [place] [phone] NURSE PRACTITIONER 04/27/16 Wilbert Kimbrough MD [address] [facility] [address] [place] [address] CARDIOVASCULAR DISEASE 03/15/17 Spencer Nguyen MD [address] [place] [address] [address] [place] [address] EP Chairlift Operator CLINICAL CARDIAC ELECTROPHYSIOLOGY 03/22/17 Tahir Wiggins PA-C [address] [place] [phone] Electrophysiology 03/22/17 documented as of this encounter
--- OUTSIDE RECORDS SUMMARY | 2024-06-24 16:26 | XMS_ITS | Encounter Summary ---
Author Organization [facility] Address [address] [place] [address] Care Team Providers Care Cellar Worker Name Role Phone Evens Mattson MD Primary Care Provider Unavailab gege Vega MD, Robert Unavailable [phone] Janee Ahn ANP-BC Unavailable [phone] Tanvi Cordova NP Unavailable [phone] Wilbert Kimbrough MD Unavailable [phone] Spencer Nguyen MD Unavailable Unavailable Tahir WigginsC Unavailable [phone] Carmenza Fernandez MD Primary Care Provider Encounter Details Date Type Department Care Team (Late st Contact Info) Description 05/08/2017 Abstract [facility] [address] [place] [address] , Generic Conversion, Social History Tobacco Use [...] Description 07/03/2024 2:30 PM CDT Office Visit [facility], [address] [place] [address] Samia Das MD Three [facility]. [address] [place] [address] 11/10/2024 11:00 AM CDT Office Visit [facility]-[address] [phone] Juan Luis Erazo MD 3 [facility] [address] [place] [address] documented as of this encounter Visit Diagnoses Not on filedocumented in this encounter Care Teams Cellar Worker Relationship Specialty Start Date End Date Evens Mattson MD PCP - General INTERNAL MEDICINE 02/28/16 09/30/23 [place] [address] PCP - General FAMILY PRACTICE 10/01/23 Luis Angel Moreno MD CARDIOVASCULAR DISEASE 02/28/16 Janee Ahn ANP- [address] [place] [address] NURSE PRACTITIONER 02/28/16 Tanvi Cordova NP [address] [facility] [address] [place] [address] NURSE PRACTITIONER 04/27/16 Wilbert Kimbrough MD [address] [facility] [address] [place] [address] CARDIOVASCULAR DISEASE 03/15/17 Spencer Nguyen MD [address] [facility] [address] [place] [address] EP [employer] CLINICAL CARDIAC ELECTROPHYSIOLOGY 03/22/17 Tahir Wiggins PA-C [address] [place] [address] Electrophysiology 03/22/17 documented as of this encounter
--- OUTSIDE RECORDS SUMMARY | 2024-06-24 16:26 | XMS_ITS | Continuity of Care Document ---
Author Organization [facility] Address [address] [place] [address] Phone Care Team Providers Care Sequins Spooler Name Role Phone Jose Alonzo MD Unavailable [...] 1 capsule by oral route every day [address] UNITS - Active Crestor 40 mg tablet [...] - Active Procedures Procedure Date OFFICE/OUTPATIENT VISIT, [facility] Advance Directives Directive Yes / No Effective Date File Name No Information Encounters Encounter Description Practice Location Reason(s) For Visit Diagnoses Date Provider Providers Copied on Encounter [facility], [address], [place], [place], [id number], tel:[phone] [facility] No Information 1 Clinton Garcia. [address], [place], [place], [address] , [place]. tel:[phone] OFFICE/OUTPA TIENT VISIT, [facility], [address] [place], [id number], tel:[phone] [facility] stroke1 (chief complaint) Afib1 (chief complaint) incontinen ce1 (chief complaint) HLP (chief complaint) neuropathy 1 (chief complaint) StrokeUrge incontinenceHyperli pidemiaEssential (primary) hypertensionInsomni aNeuropathyAtrial fibrillation 1 Clinton Garcia. [address] [facility] [place], [id number] , [place]. tel:[phone] Family History Family Member Type Diagnosis Age At Onset No Information Payers Payer name Insurance type Covered green party ID Authoriza tion(s) No Information Social [...]
--- OUTSIDE RECORDS SUMMARY | 2024-06-24 16:26 | XMS_ITS | Encounter Summary ---
Author Organization [facility] Address [address] [place] [address] Care Team Providers Care Bookkeeping Manager Name Role Phone Carmenza Fernandez MD Primary Care Provider [phone] Encounter Details Date Type Department Care Team (Late st Contact Info) Description 06/15/2024 Results Follow-Up [facility] [address] [place] [address] [address] [address] Janee Moya MA Social History Tobacco Use Types Packs/Day Years Used Date Smoking Tobacco: Never Assessed Smokeless Tobacco: Never Personal Safety Answer Date Recorded Have you ever been in or are you currently in a harmful physical or emotional relationship or is someone making you feel afraid or unsafe? Denies 06/01/2023 Comments Unknown Sex and Gender Information Value Date Recorded Sex Assigned at Not on file Legal Sex Female 12:41 PM CDT Gender Identity Not on file Sexual Orientation Not on file documented as of this encounter Miscellaneous Notes * Result Encounter Note - Kathy Reyna CMA - 06/20/2024 10:49 AM CDT Sent patient my chat message and gave office number. * Result Encounter Note - Janee Moya MA - 06/16/2024 10:21 AM CDT Lvm for pt's daughter Neyda to call back. * Result Encounter Note - Janee Moya MA - 06/15/2024 3:53 PM CDT .. * Result Encounter Note - Janee Moya MA - 06/15/2024 2:55 PM CDT Spoke to pt's a daughter neyda she stated pt will not be able to use a machine because she has had a stroke. She would like alternative treatment. documented in this encounter Plan of Treatment Not on file documented as of this encounter Visit Diagnoses Not on filedocumented in this encounter Care Teams Bookkeeping Manager Relationship Specialty Start Date End Date Carmenza Fernandez MD PCP - General Family Medicine 06/01/23 documented as of this encounter
--- OUTSIDE RECORDS SUMMARY | 2024-06-24 16:26 | XMS_ITS | Clinical Summary ---
Author Organization [facility] Address [address] [place] [address] Care Team Providers Care Paper Tube Grader Name Role Phone Carmenza Fernandez MD Primary Care Provider [phone] Allergies Active Allergy Reactions Criticality Noted Date [...] Diagnosed Date HUDSON (obstructive sleep apnea) 06/15/2024 Encounters Date Type Department Care Team Description 06/15/2024 Results Follow-Up [facility] [address] [facility] [address] [place] [address] Janee Moya MA 06/13/2024 7:00 PM CDT - 06/13/2024 11:59 PM CDT Hospital Encounter [facility] [address] [place] [address] HUDSON (obstructive sleep apnea) Discharge Disposition: Discharge to home or self care 06/12/2024 Telephone [facility] [address] [facility] [address] [place] [address] Janee Moya MA from Last 3 Months Social History Tobacco [...] Comments Blood Pressure 142/80 03/06/2024 10:45 AM FACILITY SUPERVISOR Pulse 74 03/06/2024 10:45 AM FACILITY SUPERVISOR Temperature 36.6 C (97.9 F) 06/01/2023 9:39 AM CDT Respiratory Rate 16 06/01/2023 12:00 PM CDT Oxygen Saturation 98% 03/06/2024 10:45 AM FACILITY SUPERVISOR Inhaled Oxygen Concentration - - Weight 68 kg (149 lb 14.6 oz) 06/01/2023 9:39 AM CDT Height 157.5 cm (5' 2 ) 03/06/2024 10:45 AM FACILITY SUPERVISOR Body Mass Index - - Plan of [...] 01/04/2022, 12/07/2020, Additional history exists Influenza Vaccine (Season Ended) 2024 12/18/19, 12/25/2021 Procedures Procedure Name Priority Date/Time Associated Diagnosis Comments PSG (COMPLEX) Routine 06/14/2024 1:24 PM CDT HUDSON (obstructive sleep apnea) from Last 3 Months Results * PSG-Sleep Provider Use Only (06/14/2024 1:24 PM CDT) Impressions Leena Logan MD - 06/14/2024 1:24 PM CDT Indication for study: Ms. Anthony is a 88-year-old with chief complaints of unrefreshing sleep and excessive daytime sleepiness. The patient's Hartshorne Sleepiness scale score is 16 Vital statistics: [...] continued 7. Avoid alcohol sedatives and other VP depression that may worsen sleep apnea and disrupt normal sleep architecture 8. Patients with sleep apnea may have significant daytime hypersomnolence. If that is the case, driving or handling heavy machinery should be avoided until the apnea and excessive sleepiness have resolved. Narrative Leena Logan MD - 06/14/2024 1:24 PM CDT Ocst is ready for review us Leena Logan MD [facility] ORDERABLES Final Re sult from Last 3 Months Insurance MEDICARE [facility] MEDICARE BLUE CROSS MEDICARE SUPPLEMENT Member Subscriber Plan / Payer (Ef fective 2008-Present) Name:Domenica Anthony Relation to Subscriber:Self Name:Domenica Anthony Payer ID:[id number] Type:COMMERCIAL Address: [address] Care Teams Paper Tube Grader Relationship Specialty Start Date End Date Carmenza Fernandez MD PCP - General Family Medicine 06/01/23
== END 2024-06-24 15:26 ==
PROVIDERS: Emergency Provider Emergency Medicine; PCP Family Medicine
DX: R07.89 Other chest pain (principal); I48.91 Unspecified atrial fibrillation; Z79.01 Long term (current) use of anticoagulants; I25.10 Atherosclerotic heart disease of native coronary artery without angina pectoris; G47.33 Obstructive sleep apnea (adult) (pediatric); I10 Essential (primary) hypertension; H40.9 Unspecified glaucoma; I69.359 Hemiplegia and hemiparesis following cerebral infarction affecting unspecified side
CPT/HCPCS: 36415; 71046; 80053; 83690; 84484; 85025; 85610; 85730; 93005; 96374; 99284; J2270

== ENCOUNTER 2024-11-24 18:35 | Inpatient (IN) | payer MEDICARE, SELFPAY ==
--- OUTSIDE RECORDS SUMMARY | 2021-02-13 06:00 | XMS_ITS | Continuity of Care Document ---
Author Organization [facility] Address [address] [place] [address] Phone Care Team Providers Care Barrel Assembler Helper Name Role Phone Chad PT, DPT, Sd Unavailable Unavailable Procedures Procedure Date Therapeutic Activities Therapeutic Exercise Therapeutic Activities Therapeutic Exercise Therapeutic Activities Therapeutic Exercise Therapeutic Activities Therapeutic Exercise PT Evaluation Low Complexity Therapeutic Activities Advance Directives Directive Yes / No Effective Date File Name No Information Encounters Encounter Description Practice Location Reason(s) For Visit Diagnoses Date Provider Providers Copied on Encounter [facility], [address] [address], [place], [place], [id number], tel:[phone] [facility] No Information Chad Beaver. . Referring Provider: Soniya Zurita [facility], [place], [address]. tel:[phone] [facility] [address], [id number], tel:[phone] [facility] No Information Chad Beaver. . Referring Provider: Jose Alonzo, [address] [facility] [address], [place], [address]. tel:[phone] [facility] [address] [address], [place], [place], [id number], tel:[phone] [facility] No Information Chad Beaver. . Referring Provider: oJse Alonzo, [address], [place], [address]. tel:[phone] [address], [place], [place], [id number], tel:[phone] [facility] No Information Chad Beaver. . Referring Provider: Jose Alonzo, [address], [place], [address]. tel:[phone] [address] [address], [place], [place], [id number], tel:[phone] [facility] No Information Chad Beaver. . Referring Provider: Jose Alonzo, [address], [place], [address]. tel:[phone] Family History Family Member Type Diagnosis Age At Onset No Information Payers Payer name Insurance type Covered democrat ID Authorjimia iker(s) Medicare [place] MB [id number] [facility] [id number] Social History Type Description Quantity Date Captured Comments Sex Female Smoking Status No Information Chief Complaint And Reason For Visit No Information Reason For Referral Reason For Referral No Information History Of Present Illness Encounter Date Complaint History Of Prese nt Illness No Information Functional Status Date Functional Assessmen t No Information Instructions Date Instruction Additional Infor mation No Information Assessments Type Assessment Date No Information Patient Care Teams Name Effective Dates (start - stop) Status Members No Information
--- OUTSIDE RECORDS SUMMARY | 2021-02-13 06:00 | XMS_ITS | Continuity of Care Document ---
Author Organization [facility] Address [address] [place] [address] Phone Care Team Providers Care Professor Of Spanish Name Role Phone Chad PT, DPT, Sd Unavailable Unavailable Procedures Procedure Date Therapeutic Activities Therapeutic Exercise Therapeutic Activities Therapeutic Exercise Therapeutic Exercise Therapeutic Activities Therapeutic Activities Therapeutic Exercise PT Evaluation Low Complexity Therapeutic Activities Advance Directives Directive Yes / No Effective Date File Name No Information Encounters Encounter Description Practice Location Reason(s) For Visit Diagnoses Date Provider Providers Copied on Encounter [facility], [address] [address], [place], [place], [id number], tel:[phone] [facility] No Information Chad Beaver. . Referring Provider: Soniya Zurita [facility], [place], [address]. tel:[phone] [facility] [address], [id number], tel:[phone] [facility] No Information Chad Beaver. . Referring Provider: Jose Alonzo, [address] [facility] [address], [place], [address]. tel:[phone] [facility] [address] [address], [place], [place], [id number], tel:[phone] [facility] No Information Chad Beaver. . Referring Provider: Jose Alonzo, [address] [facility] [address], [place], [address]. tel:[phone] [address] [address] [address], [place], [place], [id number], tel:[phone] [facility] No Information Chad Beaver. . Referring Provider: Jose Alonzo, [address] [facility] [address], [place], [address]. tel:[phone] [address] [facility], [place], [place], [id number], tel:[phone] [facility] No Information Chad Beaver. . Referring Provider: Jose Alonzo, [address] [facility] [address], [place], [address]. tel:[phone] Family History Family Member Type Diagnosis Age At Onset No Information Payers Payer name Insurance type Covered alliance party ID Authorjimia iker(s) Medicare [place] MB [id number] [facility] [id number] Social History Type Description Quantity Date Captured [...]
--- OUTSIDE RECORDS SUMMARY | 2024-09-06 09:00 | XMS_ITS ---
Author Organization [facility] Address [address] [place], [place] [address] Care Team Providers Care Scrap Metal Processing Worker Name Role Phone JUSTUS RADHA Unavailable [phone] REASON FOR VISIT *General care, had trimmed somewhere else Encounters Encounter Location Date Provider Diagnosis [facility] [address] [place], [place] [id number] 09/06/2024 RADHA JEROME Plan Of Treatment No Information Progress Notes * Domenica ANTHONYDOB:1935 (89 yo F)Acc No.[id number]:09/06/2024 Progress Notes Patient: Domenica HERNANDEZ Provider: Ferny JEROME :1935 A ge:89 Y S ex:Female Date:09/06/2024 Address:[address] [place], [place] [id number] Subjective: * Chief Complaints: * 1 . *General care, had trimmed somewhere else. * Medical History: Objective: * Vitals: Assessment: Plan: * Treatment: * Billing Information: * Visit Code: * Procedure Codes: * Electronic signature of LUIGI JEROME DPM on 11/24/2024 at 06:37 PM CDT Sign off status: Pending * Provider: Ferny JEROME Date: 0 09/06/2024 Generated for Lu burt/Santa/Chriss on: 1 06:37 PM CDT
[2024-11-24] VITALS (8 sets, daily range): BP systolic 123–141; BP diastolic 68–80; PULSE 71–87; RESP 12–28; TEMP 37.2; O2SAT 95–100
--- NOTE | ~2024-11-24 | XR_ITS ---
Examination: XR chest 2V Clinical History: CHEST PAIN Comparison: 06/24/2024 Technique: PA and Lateral Findings: Cardiomegaly. Lungs clear. No acute bony abnormality. IMPRESSION: 1. No acute cardiopulmonary findings. Reviewed, dictated and finalized at location R.
--- NOTE | 2024-11-24 18:37 | ECG_ITS ---
Test Date: 2024-11-24 18:49:56 Measurements Intervals [place] Rate: 79 P: 0 CT: 0 QRS: 20 QRSD: 102 T: 146 QT: 391 QTc: 449 Interpretive Statements ATRIAL FIBRILLATION LEFT VENTRICULAR HYPERTROPHY WITH ST-T CHANGE CONSIDER INFERIOR INFARCT, AGE INDETERMINATE BORDERLINE ST-T WAVE ABNORMALITY- ANTEROLATERAL LEADS BASELINE ARTIFACT- I, II, III, AVR, AVL, AVF, V1 ABNORMAL ECG Compared to ECG 06/24/2024 14:02:27 Possible ischemia NO LONGER PRESENT Electronically Signed On 11-24-2024 19:22:46 CDT by Silviano Jay D.O.
--- OUTSIDE RECORDS SUMMARY | 2024-11-24 18:37 | XMS_ITS | Encounter Summary ---
Author Organization [facility] Address [address] [place] [address] Care Team Providers Care Physician Internist Name Role Phone Tiffanie Vega MD, Robert Unavailable [phone] Janee Ahn ANP-BC Unavailable [phone] Tanvi Cordova NP Unavailable [phone] Wilbert Kimbrough MD Unavailable [phone] Spencer Nguyen MD Unavailable Unavailable Tahir Wiggins PA-C Unavailable [phone] Carmenza Fernandez MD Primary Care Provider [phone] Encounter Details Date Type Department Care Team (Late st Contact Info) Description 07/13/2024 Abstract [facility], [address] [address] Clinton Tubbs MA Social History Tobacco Use Types Packs/Day [...] Care Team (Late st Contact Info) Description 05/11/2025 1:30 PM CDT Office Visit [facility] [address] Juan Luis Erazo MD 3 [facility] [address] [place] [address] documented as of this encounter Procedures Procedure Name Priority Date/Time Associated Diagnosis Comments BASIC METABOLIC PANEL Routine 07/12/2024 documented in this encounter Results * BASIC METABOLIC PANEL (07/12/2024) SODIUM S/P/B 139 POTASSIUM S/P/B 4.5 CO2 24 CHLORIDE S/P/B 102 GLUCOSE 84 mg/dL CALCIUM S/P/B 10.0 BUN 16 CREATININE S/P/B 0.86 0.5 - 1.0 GFR ESTIMATE 65 07/12/2024 us Default History Genericprovider LABORATORY Final Result documented in this encounter Visit Diagnoses Not on filedocumented in this encounter Care Teams Physician Internist Relationship Specialty Start Date End Date Carmenza Fernandez MD [address] [place] [address] PCP - General FAMILY PRACTICE 10/01/23 Luis Angel Moreno MD CARDIOVASCULAR DISEASE 02/28/16 Janee Ahn ANP- [address] [facility] [address] [place] [address] NURSE PRACTITIONER 02/28/16 Tanvi Cordova NP [address] [facility] [address] [place] [address] NURSE PRACTITIONER 04/27/16 Wilbert Kimbrough MD [address] [facility] [address] [place] [address] CARDIOVASCULAR DISEASE 03/15/17 Spencer Nguyen MD [address] [facility] [address] [place] [address] EP Transit Mechan[employer] CLINICAL CARDIAC ELECTROPHYSIOLOGY 03/22/17 Tahir Wiggins PA-C [address] [place] [address] Electrophysiology 03/22/17 documented as of this encounter
--- OUTSIDE RECORDS SUMMARY | 2024-11-24 18:37 | XMS_ITS | Encounter Summary ---
Author Organization [facility] Address [address] [place] [address] Care Team Providers Care Spanish Teacher Name Role Phone Evens Mattson MD Primary Care Provider Unavailab gege Vega MD, Robert Unavailable [phone] Janee Ahn ANP-BC Unavailable [phone] Tanvi Cordova NP Unavailable [phone] Wilbert Kimbrough MD Unavailable [phone] Spencer Nguyen MD Unavailable Unavailable Tahir WigginsC Unavailable [phone] Carmenza Fernandez MD Primary Care Provider [phone] Encounter Details Date Type Department Care Team (Latest Contact Info) Description 12/28/2017 Abstract [facility] Adelia Abarca MD [...] Description 05/11/2025 1:30 PM CDT Office Visit [facility]-[address] [address] Juan Luis Erazo MD 3 [facility] [address] [place] [address] documented as of this encounter Visit Diagnoses Not on filedocumented in this encounter Care Teams Spanish Teacher Relationship Specialty Start Date End Date Evens Mattson MD PCP - General INTERNAL MEDICINE 02/28/16 09/30/23 Carmenza Fernandez MD [address] [place] [address] PCP - General FAMILY PRACTICE 10/01/23 Luis Angel Moreno MD CARDIOVASCULAR DISEASE 02/28/16 Janee Ahn, [facility]- [address] [facility] [address] [place] [address] NURSE PRACTITIONER 02/28/16 Tanvi Cordova NP [address] [facility] [address] [place] [address] NURSE PRACTITIONER 04/27/16 Wilbert Kimbrough MD [address] [facility] [address] [place] [address] CARDIOVASCULAR DISEASE 03/15/17 Spencer Nguyen MD [address] [facility] [address] [place] [address] EP Cinder Man CLINICAL CARDIAC ELECTROPHYSIOLOGY 03/22/17 Tahir Wiggins PA-C [address] [place] [address] Electrophysiology 03/22/17 documented as of this encounter
--- OUTSIDE RECORDS SUMMARY | 2024-11-24 18:37 | XMS_ITS | Clinical Summary ---
Author Organization [facility] Address [address] [place] [address] Care Team Providers Care Garland Machine Operator Name Role Phone Tiffanie Vega MD, Robert Unavailable [phone] Janee Ahn ANP-BC Unavailable [phone] Tanvi Cordova NP Unavailable [phone] Wilbert Kimbrough MD Unavailable [phone] Spencer Nguyen MD Unavailable Unavailable Tahir Wiggins PA-C Unavailable [phone] Carmenza Fernandez MD Primary Care Provider Allergies Active Allergy Reactions Criticality Noted Date [...] maleate) Drops 0.25%; as directed; 0; 0; -Nov-2011 ; Active 11/26/19 12 Active Multiple Vitamins-Mineral s (CENTRUM SILVER 50+WOMEN OR) Take 1 tablet by mouth daily. Active traMADol (ULTRAM) 50 MG tablet Take 1 tablet (50 mg total) by mouth every 4 (four) hours as needed for Pain. 01/26/20 24 Active amLODIPine (NORVASC) 5 MG tabletIndication s:Essential hypertension Take 1 tablet (5 mg total) by mouth daily. 90 tablet 3 11/11/19 25 Active apixaban (ELIQUIS) 5 MG tabletIndication s:S/P coronary artery stent placement Take 1 tablet (5 mg total) by mouth 2 (two) times daily. 180 tablet 11/11/19 25 Active losartan (COZAAR) 50 MG tabletIndication s:Essential hypertension Take 1 tablet (50 mg total) by mouth daily. 90 tablet 3 11/11/19 25 Active metoprolol succinate ER (TOPROL-XL) 50 MG 24 hr tabletIndication s:Persistent atrial fibrillation (CMS/HCC HHS/HCC) Take 1 tablet (50 mg total) by mouth daily. 90 tablet 3 11/11/19 25 Active nitroglycerin (NITROSTAT) 0.4 MG SL tabletIndication s:Angina, class III Place 1 tablet (0.4 mg total) under the tongue every 5 (five) minutes as needed for Chest Pain (chest pain). Max 3 tabs, then call 911 25 tablet 1 11/11/19 25 Active rosuvastatin (CRESTOR) 10 MG tabletIndication s:Hyperlipidemia Take 1 tablet (10 mg total) by mouth nightly at bedtime. 90 tablet 3 11/11/19 25 Active potassium chloride CR (MICRO-K) 10 MEQ CR capsule Take 1 capsule (10 mEq total) by mouth 2 (two) times daily. 10/13/19 22 025 Discontinued(Re order) nitroglycerin (NITROSTAT) 0.[address] 1 tablet (0.4 mg total) under the tongue every 5 (five) minutes as needed for Chest Pain (chest pain). Max 3 tabs, then call 911 25 tablet 1 01/09/20 23 025 Discontinued(Re order) losartan (COZAAR) 50 MG tablet TAKE 1 TABLET(50 MG) BY MOUTH DAILY 90 tablet 08/10/19 24 025 Discontinued rosuvastatin (CRESTOR) 10 MG tabletIndication s:Hyperlipidemia TAKE 1 TABLET(10 MG) BY MOUTH EVERY OTHER DAY 45 tablet 1 05/02/19 25 025 Discontinued amLODIPine (NORVASC) 5 MG tablet TAKE 1 TABLET(5 MG) BY MOUTH DAILY 90 tablet 1 07/01/19 25 025 Discontinued(Re order) metoprolol succinate ER (TOPROL-XL) 50 MG 24 hr tablet TAKE 1 TABLET(50 MG) BY MOUTH DAILY 90 tablet 1 07/11/19 25 025 Discontinued(Re order) apixaban (ELIQUIS) 5 MG tablet TAKE 1 TABLET(5 MG) BY MOUTH TWICE DAILY 180 tablet 09/28/19 025 Discontinued(Re order) rosuvastatin (CRESTOR) 10 MG tabletIndication s:Hyperlipidemia TAKE 1 TABLET(10 MG) BY MOUTH EVERY OTHER DAY 45 tablet 10/31/19 25 025 Discontinued(Re order) losartan (COZAAR) 50 MG tablet TAKE 1 TABLET(50 MG) BY MOUTH DAILY 90 tablet 11/08/19 25 025 Discontinued(Re order) potassium chloride CR (MICRO-K) 10 MEQ CR capsuleIndicatio ns:Hypokalemia Take 1 capsule (10 mEq total) by mouth 2 (two) times daily. 90 capsule 3 11/11/19 025 Discontinued Active Problems Problem Noted Date Diagnosed Date Subdural hematoma 01/09/2022 Paroxysmal atrial fibrillation ([facility]) 03/29/2020 CVA (cerebral vascular accident) ([facility]) 04/05/2018 Thrombus of left atrial appendage 04/05/2018 Sepsis ([facility]) 04/05/2018 UTI (urinary tract infection) 04/05/2018 Acute ischemic stroke ([facility]) 04/05/19 Intracranial hemorrhage, spo ntaneous intraparenchymal, associated with arterial infarction, acute ([facility]) 04/05/2018 Current use of fdc anticoagulation 018 Shortness of breath 01/26/2017 Persistent atrial fibrillation 04/07/2016 Angina, class III 04/07/2016 Dyspnea on exertion 03/22/2016 S/P coronary artery stent placement 03/16/2016 NSTEMI (non-ST elevated myoc ardial infarction) ([facility]) 01/28/2007 CAD (coronary artery disease), [place] coronary a rtery Overview (02/07/2016): s/p stent Essential hypertension Dyslipidemia Sleep apnea Overview (02/07/2016): does not wear CPAP TIA (transient ischemic attack) Left arm pain Resolved Problems Problem Noted Date Diagnosed Date Resolved Date Statin intolerance 03/16/2016 0 Encounters Date Type Department Care Team Description 11/10/2024 11:00 AM CDT Office Visit [facility] [address] Juan Luis Erazo MD Atrial Fibrillation 11/10/2024 Travel from Last 3 Months Family History Relation Status Comments Brother 1 Alive CABG Brother 2 Child 1 Alive Child 2 Alive Child 3 Alive Child 4 Alive Child 5 Father (Age 48) CAD, [place] Maternal Grandfather (Age 87 ) Stroke Maternal [...] Sign Reading Time Taken Comments Blood Pressure 122/78 11/10/2024 11:35 AM CDT Pulse 86 11/10/2024 11:18 AM CDT Temperature 36.4 C (97.5 F) 03/29/2020 11:09 AM CORN DETASSELER Respiratory Rate 14 03/29/2020 11:0 9 AM CORN DETASSELER Oxygen Saturation 93% 11/10/2024 11: 18 AM CDT Inhaled Oxygen Concentration - - Weight 60.7 kg (133 lb 12.8 oz) 025 12:01 PM CDT Height 157.5 cm (5' 2) 11/10/2024 11:1 8 AM CDT Body Mass Index 24.47 05/12/2024 12:01 PM CDT Plan of Treatment Upcoming Encounters Date Type Department Care Team (Late st Contact Info) Description 05/11/2025 1:30 PM CDT Office Visit [facility] [address] Juan Luis Erazo MD [address] [place] [phone] Health Maintenance Due Date Last Done Comments DTaP, Tdap and Td Vaccines (1 - Tdap) 06/20/1954 Annual Medicare Wellness Visit 06/20/2000 RSV Immunization or 60+ Years (1 - 1-dose 75+ series) 06/20/2010 ASCVD LDL 04/06/2019 04/06/2018, 08/22, 09/02/2016, Additional history exists Pneumococcal Vaccine: 50+ Years (2 of 2 - PCV) 10/21/2021 10/21/2020, 08/02/2019 PHQ-2 (Physician Bishop) 02/23/2024 COVID-19 Vaccine ( season) 2024 12/31/2022, 01/04/2022, 12/07/2020, Additional history exists Zoster Vaccines Completed 01/04/2022, 1204/2020, 01/24/2021 Meningococcal [...] Comments LIPID PANEL Routine 04/06/2018 2:23 AM CORN DETASSELER from Last 3 Months or Most Recently Relevant to Health Maintenance Results * LIPID PANEL (04/06/2018 2:23 AM CORN DETASSELER) CHOLESTEROL 173 MG/DL 04/06/2018 7:31 AM CORN DETASSELER [facility] Comment:DESIRABLE: <200 TRIGLYCERIDES 91 MG/DL 04/06/2018 7:31 AM [facility] Comment:<150 NORMAL HDL 60 >49 MG/DL 04/06/2018 7:31 AM [facility] LDL (CALCULATED) 95 MG/DL 04/06/19 19 7:31 AM [facility] Comment:<100 OPTIMAL VLDL CALCULATION 18 MG/DL 04/06/19 19 7:31 AM [facility] Comment:REFERENCE RANGE NOT ESTABLISHED CHOL/HDL RATIO 2.9 04/06/2018 7:31 AM [facility] Comment:REFERENCE RANGE NOT ESTABLISHED LDL/HDL 1.6 04/06/2018 7:31 AM [facility] Comment:REFERENCE RANGE NOT ESTABLISHED NON HDL CHOLESTEROL 113 MG/DL 04/06/2018 7:31 AM [facility] Comment:REFERENCE RANGE NOT ESTABLISHED 04/06/2018 2:23 AM CORN DETASSELER us Galdino Go MD LABORATORY Final Resul t [facility] [address] [place] [address], [id number] from Last 3 Months or Most Recently Relevant to Health Maintenance Insurance MEDICARE MEDICARE [facility] Advance Directives Documents on File Type Date Recorded Patient Material Movers Expl anation Advance Directives and Living Will 04/07/2018 1:14 PM 02/23/11 LIVING WILL Power of Tubing Tester 04/07/2018 1:14 PM Advance Directives and Living Will 05/08/2017 ADVANCE DIRECTIVE Advance Directives and Living Will 05/08/2017 LIVING WILL Advance Directives and Living Will 05/08/2017 POWER OF BRUSH HOLDER ASSEMBLER FO R HEALTH CARE Advance Directives and Living Will 05/08/2017 SHORT FORM POWER OF BRUSH HOLDER ASSEMBLER Advance Directives and Living Will 03/15/2017 SHORT FORM POWER OF BRUSH HOLDER ASSEMBLER Advance Directives and Living Will 03/15/2017 ADVANCE DIRECTIVE Advance Directives and Living Will 03/15/2017 LIVING WILL Advance Directives and Living Will 03/15/2017 POWER OF BRUSH HOLDER ASSEMBLER FO R HEALTH CARE Advance Directives and Living Will 03/12/2017 ADVANCE DIRECTIVE Advance Directives and Living Will 03/12/2017 LIVING WILL Advance Directives and Living Will 03/12/2017 POWER OF BRUSH HOLDER ASSEMBLER FO R HEALTH CARE Advance Directives and Living Will 03/12/2017 SHORT FORM POWER OF BRUSH HOLDER ASSEMBLER Advance Directives and Living Will 03/12/2017 ADVANCE DIRECTIVE Advance Directives and Living Will 03/12/2017 LIVING WILL Advance Directives and Living Will 03/12/2017 POWER OF BRUSH HOLDER ASSEMBLER FO R HEALTH CARE Advance Directives and Living Will 03/12/2017 SHORT FORM POWER OF BRUSH HOLDER ASSEMBLER Advance Directives and Living Will 01/26/2017 ADVANCE DIRECTIVE Advance Directives and Living Will 01/26/2017 SHORT FORM POWER OF BRUSH HOLDER ASSEMBLER Advance Directives and Living Will 01/26/2017 LIVING WILL Advance Directives and Living Will 01/26/2017 POWER OF BRUSH HOLDER ASSEMBLER FO R HEALTH CARE Advance Directives and Living Will 11/17/2016 LIVING WILL Advance Directives and Living Will 11/17/2016 ADVANCE DIRECTIVE Advance Directives and Living Will 11/17/2016 POWER OF BRUSH HOLDER ASSEMBLER FO R HEALTH CARE Advance Directives and Living Will 11/17/2016 SHORT FORM POWER OF BRUSH HOLDER ASSEMBLER Advance Directives and Living Will 09/16/2016 ADVANCE DIRECTIVE Advance Directives and Living Will 09/16/2016 LIVING WILL Advance Directives and Living Will 09/16/2016 POWER OF BRUSH HOLDER ASSEMBLER FO R HEALTH CARE Advance Directives and Living Will 09/02/2016 POWER OF BRUSH HOLDER ASSEMBLER FO R HEALTH CARE Advance Directives and Living Will 09/02/2016 ADVANCE DIRECTIVE Advance Directives and Living Will 09/02/2016 LIVING WILL Advance Directives and Living Will 05/20/2016 LIVING WILL Advance Directives and Living Will 05/20/2016 ADVANCE DIRECTIVE Advance Directives and Living Will 05/20/2016 POWER OF BRUSH HOLDER ASSEMBLER FO R HEALTH CARE Advance Directives and Living Will 04/16/2016 ADVANCE DIRECTIVE Advance Directives and Living Will 04/16/2016 LIVING WILL Advance Directives and Living Will 04/16/2016 POWER OF BRUSH HOLDER ASSEMBLER FO R HEALTH CARE Advance Directives and [...] 6:30 AM 04/16/2018 4:34 PM Care Teams Garland Machine Operator Relationship Specialty Start Date End Date Carmenza [place] [address] PCP - General FAMILY PRACTICE 10/01/23 Luis Angel Moreno MD CARDIOVASCULAR DISEASE 02/28/16 Janee Ahn, ANP- [address] [address] NURSE PRACTITIONER 02/28/16 Tanvi Cordova NP [address] [address] NURSE PRACTITIONER 04/27/16 Wilbert Kimbrough MD [address] [address] CARDIOVASCULAR DISEASE 03/15/17 Spencer Ngyuen MD [address] [facility] [address] [place] [address] EP Business Account Executive CLINICAL CARDIAC ELECTROPHYSIOLOGY 03/22/17 Tahir Wiggins PA-C [address] [place] [address] Electrophysiology 03/22/17
--- OUTSIDE RECORDS SUMMARY | 2024-11-24 18:37 | XMS_ITS | Clinical Summary ---
Author Organization [facility] Address [address] [place] [address] Care Team Providers Care Pattern Developer Name Role Phone Carmenza Fernandez MD Primary Care Provider [phone] Allergies Active Allergy Reactions Criticality Noted Date [...] Encounters Date Type Department Care Team Description 10/13/2024 Telephone [facility] [address] [place] [address] [address] [place] [address] Leena Logan MD 10/09/2024 Telephone [facility] [address] [facility] [address] [place] [address] Leena Logan MD from Last 3 Months Social History Tobacco [...] Comments Blood Pressure 142/80 03/06/2024 10:45 AM SEALER AIRCRAFT Pulse 74 03/06/2024 10:45 AM SEALER AIRCRAFT Temperature 36.6 C (97.9 F) 06/01/2023 9:39 AM CDT Respiratory Rate 16 06/01/2023 12:00 PM CDT Oxygen Saturation 98% 03/06/2024 10:45 AM SEALER AIRCRAFT Inhaled Oxygen Concentration - - Weight 68 kg (149 lb 14.6 oz) 06/01/2023 9:39 AM CDT Height 157.5 cm (5' 2) 03/06/2024 10:45 AM SEALER AIRCRAFT Body Mass Index - - Plan of Treatment Health Maintenance Due Date Last Done Comments Depression Screening 1935 Fall Risk Assessment 1935 Osteoporosis Screening-Bone Density Scan 1935 DTaP/Tdap/Td Vaccine (1 - Tdap) 06/20/1946 Hepatitis B Screening 06/20/1953 Well Visit 65+ 06/20/2000 Zoster Vaccine (2 of 2) 03/21/2021 01/24/2021 Pneumococcal vaccine 65+ (2 of 2 - PCV) 10/21/2021 10/21/2020 Covid-19 Vaccine (6 - 2024-2 6 season) 2024 12/31/2022, 01/04/2022, 12/07/2020, Additional history exists Influenza Vaccine (#1) 2024 12/17/2022, 2021 Insurance MEDICARE [facility] MEDICARE [facility] MEDICARE SUPPLEMENT Care Teams Pattern Developer Relationship Specialty Start Date End Date Carmenza Fernandez MD PCP - General Family Medicine 06/01/23
--- OUTSIDE RECORDS SUMMARY | 2024-11-24 18:37 | XMS_ITS | Patient Health Record ---
Author Organization [facility] Address [address] [place], [place] [address] Care Team Providers Care Station Mechanic Helper Name Role Phone JEROMERADHA THRASHER Unavailable [phone] Reason For Referral No Information Plan Of Treatment No Information
--- OUTSIDE RECORDS SUMMARY | 2024-11-24 18:37 | XMS_ITS | Encounter Summary ---
Author Organization [facility] Address [address] [place] [address] Care Team Providers Care Employment Counselor Name Role Phone Evens Mattson MD Primary Care Provider Unavailab gege Vega MD, Robert Unavailable [phone] Janee Ahn ANP-BC Unavailable [phone] Tanvi Cordova NP Unavailable [phone] Wilbert Kimbrough MD Unavailable [phone] Spencer Nguyen MD Unavailable Unavailable Tahir WigginsC Unavailable [phone] Carmenza Fernandez MD Primary Care Provider [phone] Encounter Details Date Type Department Care Team (Late st Contact Info) Description 10/18/2014 Abstract [facility] [address] [place] [address] Luis Angel Moreno MD [address] [facility] [address] [place] [address] Social History Tobacco Use Types [...] Description 05/11/2025 1:30 PM CDT Office Visit [facility] [address] Juan Luis Erazo MD [address] [facility] [address] [place] [address] documented as of this encounter Visit Diagnoses Not on filedocumented in this encounter Care Teams Employment Counselor Relationship Specialty Start Date End Date Evens Mattson MD PCP - General INTERNAL MEDICINE 02/28/16 09/30/23 Carmenza Fernandez MD [address] [place] [address] PCP - General FAMILY PRACTICE 10/01/23 Luis Angel Moreno MD CARDIOVASCULAR DISEASE 02/28/16 Janee Ahn ANP- [address] [facility] [address] [place] [address] NURSE PRACTITIONER 02/28/16 Tanvi Cordova NP [address] [facility] [address] [place] [address] NURSE PRACTITIONER 04/27/16 Wilbert Kimbrough MD [address] [facility] [address] [place] [address] CARDIOVASCULAR DISEASE 03/15/17 Spencer Nguyen MD [address] [facility] [address] [place] [address] EP [employer]er CLINICAL CARDIAC ELECTROPHYSIOLOGY 03/22/17 Tahir Wiggins PA-C [address] [place] [address] Electrophysiology 03/22/17 documented as of this encounter
[2024-11-24 18:54] LABS: Hematocrit 42.9 % (37.0-47.0); Hemoglobin 14.1 g/dL (12.0-15.0); Immature Granulocyte Percent A 0.3 % (0-0.5); Lymphocytes Absolute Auto 1.42 K/mm3 (0.9-3.2); Mean Corpuscular HGB Conc 32.9 g/dl (32-36); Mean Corpuscular Hemoglobin 29.1 pg (26-34); Mean Corpuscular Volume 88.6 fl (80-100); Nucleated Red Blood Cells Absolute Auto 0.000 K/mm3 (0.0-0.012); Nucleated Red Blood Cells Perc 0.0 % (0.0-0.2); Platelet Count Result 202 k/mm3 (150-375); Red Blood Count 4.84 M/mm3 (4.2-5.4); White Blood Count 7.6 K/mm3 (4.5-10.0)
[2024-11-24 19:04] LABS: Alanine Aminotransferase 24 U/L (6-35); Albumin Level 4.4 g/dL (3.5-5.1); Alkaline Phosphatase 70 U/L (38-126); Anion Gap 9 mmol/L (4-12); Aspartate Amino Transferase 32 U/L (14-36); Bilirubin,Total 2.0 mg/dL (0.2-1.3); Blood Urea Nitrogen 21 mg/dL (7-17); Calcium 9.4 mg/dL (8.4-10.2); Carbon Dioxide 25 mmol/L (22-30); Chloride 102 mmol/L (98-107); Estimated CRCL calculation 37 ml/min; Estimated Glomerular Filt Rate > 60; Glucose 135 mg/dL (65-110); Lipase 65 U/L (23-300); Potassium 3.3 mmol/L (3.4-5.0); Sodium 136 mmol/L (137-145); Total Protein 7.7 g/dL (6.3-8.2)
[2024-11-24 19:07] LABS: INR 1.1; Prothrombin Time 14.0 Seconds (11.1-14.7)
[2024-11-24 19:08] LABS: Partial Thromboplastin Time 32.6 Seconds (22.3-36.8)
[2024-11-24 19:16] LABS: Troponin I < 0.012 ng/mL (0.000-0.034)
[2024-11-24] MEDS: ASPIRIN 81 MG CHEWABLE TABLET 324 MG PO (20:19)
--- NOTE | 2024-11-24 21:02 | ED.CHESTPAIN ---
HPI - Chest Pain General Chief Complaint: Chest Pain Stated Complaint: INTERMITTENT CHEST PAIN Time Seen by Provider: 11/24/24 20:32 Source: patient and RN notes reviewed Mode of arrival: EMS Limitations: no limitations History of Present Illness HPI narrative: Patient presents with intermittent chest pain. She had an episode approximately 2:00 p.m. that lasted for 40 minutes. This was associated with pain in her bilateral arms/shoulder, in particular left more so than the right. She reports this has never happened before. She has a history of atrial fibrillation. She is on metoprolol, amlodipine, and losartan as well as Eliquis she reports taking her anticoagulation regularly. She reports that for pain at home she uses NSAIDs although she ran out a few days ago. She knows she is not supposed to take NSAIDs because she is on Eliquis. She denies any associated shortness of breath, cough. No chills. She reports that she was told she had a fever today. She has a history of a CVA for which she reports that she has persistent left more than right lower extremity edema. Her drapery operator is Dr. Trinidad. Cardiac risk factors HTN: Yes HLD: Yes, on rosuvastatin DM: No Obese: No Smoker: No, never Personal history VT/TIA/CVA: Yes ; CVA 6 years ago and CAD Fam Hx VT in first degree relative <65yo: Yes father myocardial infarction at age 48 Related Data Home Medications ?Medication ?Instructions ?Recorded ?Confirmed ?Last Taken ?Type amlodipine 5 mg tablet 5 mg PO DAILY 07/08/22 11/25/24 11/24/24 History apixaban 2.5 mg tablet (Eliquis) 5 mg PO Q12H 07/08/22 11/25/24 11/24/24 History losartan 50 mg tablet 50 mg PO DAILY 07/08/22 11/25/24 11/24/24 History metoprolol succinate 50 mg 50 mg PO DAILY 07/08/22 11/25/24 11/24/24 History tablet,extended release 24 hr nitroglycerin 0.4 mg sublingual 0.4 mg sublingual Q5M PRN chest 07/08/22 11/25/24 Unknown History tablet pain timolol maleate 0.5 % eye drops 1 drp EACH EYE DAILY 07/08/22 11/25/24 11/24/24 History Allergies Allergy/AdvReac Type Severity Reaction Status Date / Time propoxyphene Allergy Intermediate Unknown Verified 11/10/24 08:21 Sulfa (Sulfonamide Allergy Intermediate Itching Verified 11/10/24 08:21 Antibiotics) atorvastatin AdvReac Severe Muscle Pain Verified 11/10/24 08:21 pravastatin AdvReac Severe Muscle Pain Verified 11/10/24 08:21 amoxicillin AdvReac Intermediate Diarrhea Verified 11/25/24 14:03 meperidine AdvReac Intermediate Nausea and Verified 11/25/24 14:03 Vomiting [facility] Past Medical History Medical History (Updated 11/25/24 @ 18:49 by Ele Theodore MD) Chronic anticoagulation Hyperlipidemia CVA (cerebral vascular accident) approx 2019 Insomnia RSV infection 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 Erazo [facility] AMI (acute myocardial infarction) [place] (obstructive sleep apnea) Intolerant of CPAP Hypertension Hemiparesis due to recent stroke Atrial fibrillation Surgical History Surgical History Hx of cataract extraction Bilateral eyes History of coronary artery stent placement X3 History of total bilateral knee replacement Family History Family History Sibling Cerebrovascular accident Sibling Cerebrovascular accident Father Acute myocardial infarction, Onset Age: 48 Mother Ovarian cancer Social History Social History Social History: . 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 She resides at [facility] Ambulates with walker, wheelchair Code Status: Modified code DNI Smoking status: Never smoker Alcohol intake: never Substance use: never Substance use type: does not use Do You Feel Safe in your Home?: Yes Lack of Transportation: No Lack of Food: Never True Current Housing: I Have Housing Concerned About Future Housing: No Difficulty Paying Gas/Electric Bills: No Difficulty Paying for Meds: No Currently Unemployed: No Education: Associate Degree Difficulty w/ Childcare or Family Care: No Living arrangements: retirement Additional living arrangements comments: [facility] since 09/16/22; Previously Lived with her daughter Occupation/Education: retired Spiritual care concerns: No Agree to blood products: Yes Exam Narrative: GENERAL: Well-appearing, well-nourished, and in no acute distress. HEAD: Normocephalic, atraumatic. EYES: Non injected, non icteric ENT: Nares clear, no rhinorrhea or epistaxis. Gross auditory acuity intact. NECK: Supple. No meningismus. CHEST: Speaking in full sentences. No respiratory distress. Lungs clear. HEART: Irregularly IRRegular rate and rhythm. . ABDOMEN: Soft, nondistended. No rigidity or guarding. Not peritoneal EXTREMITIES: Normal range of motion. 1-2+ bilateral lower extremity edema. SKIN: Warm, dry, no rash. NEURO: No focal deficits. Alert and oriented. Answering questions. Following commands. Normal speech without aphasia or dysarthria. PSYCH: Normal mood and affect. Course Vital Signs Vital signs: Vital Signs Temperature 99 F 11/24/24 18:38 Pulse Rate 87 11/24/24 18:38 Respiratory Rate 18 11/24/24 18:38 Blood Pressure 141/68 H 11/24/24 18:38 Pulse Oximetry 95 11/24/24 18:38 Oxygen Delivery Room Air 11/24/24 18:38 Temperature 98.0 F 11/25/24 16:34 Pulse Rate 73 11/25/24 18:00 Respiratory Rate 14 11/25/24 16:34 Blood Pressure 103/66 11/25/24 16:34 Pulse Oximetry 97 11/25/24 16:34 Oxygen Delivery Room Air 11/25/24 13:03 MDM - Chest Pain MDM Narrative Medical decision making narrative: Patient presents with an episode of chest pain that started approximately 2:00 p.m. and lasted for 40 minutes. This was preceded by bilateral arm/shoulder pain although particularly in the left. History of atrial fibrillation for which she is on medications including anticoagulation. In the emergency department she is afebrile with acceptable vital signs, mild hypertension. She is having bilateral shoulder pain but without trauma or injury and will defer dedicated imaging these locations as in general the basic anatomy of the shoulders is captured on CXR with low suspicion for frature or dislocation. HEART SCORE History 2 highly suspicious 1 moderately suspicious 0 slightly suspicious History score [address] depression/elevation not due to LBBB, LVH, or digoxin [address] depression but LBBB, LVH, nonspecific repolarization changes 0 normal ECG score 1 Age 2 >/= 65 1 45-64 0 <45 Age score 2 Risk factors (HTN, hypercholesterolemia, DM, obesity with BMI >30, current smoker or cessation </=3mo), positive fam hx with parent or sibling with CVD before age 65, atherosclerotic disease (prior VT, PCI/CABG, CVA/TIA, or peripheral arterial disease) 2 >/= 3 risk factors or history of atherosclerotic dz 1 - 1-2 risk factors 0 no known risk factors Risk factor score 2 Initial Troponin 2 >3 times normal limit 1 1-3 times normal limit 0 less than or equal to normal limit Troponin score 0 Total HEART Score 6. CBC with mild abnormalities on the differential but otherwise without leukocytosis, anemia, thrombocytopenia. Patient has mild hypokalemia. Oral repletion ordered. Bilirubin elevated, indirect predominant. Ddx indirect hyperbilirubinemia Over production of bilirubin (hemolytic anemia), reduced uptake (cirrhosis or congestive hepatopathy), impaired conjugation, biliary obstruction, hereditary disease (Gilbert syndrome, Lamonte-Minh syndrome, Crigler-Warner syndrome), medication side effect (allopurinol, anabolic steroids, antibiotics, antimalarials, etc.) Magnesium normal. Patient still having bilateral shoulder pain. Her chest pain has not recurred. She had already received aspirin. Acetaminophen ordered however patient later declines it stating it never works and this is why she uses NSAIDs (despite being on Elliquis and knowing that is contraindicated). D dimer normal. Will not proceed with CT imaging for PE study. Repeat troponin normal. BNP >3700 (no previous for comparison). No history of heart failure per review of EMR. Not on heart failure medications per se including no diuretic and she does have 1-2+ bilateral lower extremity edema though not volume overloaded on CXR although she does have cardiomegaly. No previous Echo in EMR. Small 20mg dose Lasix ordered. UA concerning for infection and RN notes that it had the odor and appearance of infection. She notes that he was told she had a fever this morning, afebrile here. Most recent urine culture in June 2024 grew E coli which was bird sensitive. Ceftriaxone given. NTG given. She reports no change in her pain after the NTG. Will order [place]. She reports that when she got Demerol before she got nausea and vomiting so will also give ondansetron. She reports that she used to receive echos in [place] but it has been awhile. Discussed recommendation to stay and she is amenable. Discussed with crop nutrition scientist hospitalst JOSE RAMON Short who accepts admission. IMU given new onset heart failure and HEART score. Echo ordered. Differential Diagnosis Differential diagnosis: Likely stable angina, unstable angina pectoris, atypical chest pain, st elevation myocardial infarction, costochondritis, chest pain, biliary colic and other (Heart failure, PE, AFib with RVR, pneumonia, UTI, acute viral syndrome) Lab Data Attestation: I reviewed the patient's lab results. 11/25/24 06:11 11/25/24 06:11 Labs: Lab Results 11/24/24 11/24/24 11/24/24 Range/Units 18:48 18:49 21:40 WBC 7.6 (4.5-10.0) K/mm3 RBC 4.84 (4.2-5.4) M/mm3 Hgb 14.1 (12.0-15.0) g/dL Hct 42.9 (37.0-47.0) % MCV 88.6 (80-100) fl MCH 29.1 (26-34) pg MCHC 32.9 (32-36) g/dl RDW 13.5 (11.5-14.5) % Plt Count 202 (150-375) k/mm3 MPV 9.4 (7.4-10.4) fl Immature Gran % (Auto) 0.3 (0-0.5) % Neut % (Auto) 66.7 (45.5-73.1) % Lymph % (Auto) 18.8 (18.3-44.2) % [place] % (Auto) 11.6 H (2.6-8.5) % Eos % (Auto) 1.7 (0-4.4) % Baso % (Auto) 0.9 (0.2-1.2) % Lymph # (Auto) 1.42 (0.9-3.2) K/mm3 [place] # (Auto) 0.9 H (0.1-0.6) K/mm3 Eos # (Auto) 0.1 (0-0.3) K/mm3 Baso # (Auto) 0.1 (0.0-0.1) K/mm3 Abs Immat Gran (auto) 0.02 (0.00-0.031) K/mm3 Absolute Neuts (auto) 5.0 (1.3-6.7) K/mm3 Absolute Nucleated RBC 0.000 (0.0-0.012) K/mm3 Nucleated RBC % 0.0 (0.0-0.2) % PT 14.0 (11.1-14.7) Seconds INR 1.1 APTT 32.6 (22.3-36.8) Seconds D-Dimer < 0.27 (<0.48) ug/mL Sodium 136 L (137-145) mmol/L Potassium 3.3 L (3.4-5.0) mmol/L Chloride 102 (98-107) mmol/L Carbon Dioxide 25 (22-30) mmol/L Anion Gap 9 (4-12) mmol/L BUN 21 H (7-17) mg/dL Creatinine 0.70 (0.7-1.0) mg/dL Estim Creat Clear Calc 37 ml/min Estimated GFR > 60 (59 - ) Glucose 135 H (65-110) mg/dL Calcium 9.4 (8.4-10.2) mg/dL Magnesium 2.0 (1.6-2.3) mg/dL Total Bilirubin 2.0 H (0.2-1.3) mg/dL Direct Bilirubin 0.0 (0-0.3) mg/dL Indirect Bilirubin 1.6 H (0-1.1) mg/dL AST 32 (14-36) U/L ALT 24 (6-35) U/L Alkaline Phosphatase 70 (38-126) U/L Troponin I < 0.012 < 0.012 (0.000-0.034) ng/mL NT-Pro-B Natriuret Pep 3790 H (19.9-100) pg/mL Total Protein 7.7 (6.3-8.2) g/dL Albumin 4.4 (3.5-5.1) g/dL Lipase 65 (23-300) U/L TSH (Reflex) (0.465-4.68) uIU/mL Free T4 Urine Color (Yellow) Urine Appearance (Clear) Urine pH (5.0-9.0) Ur Specific [place] (1.001-1.035) Urine Protein (Negative) mg/dL Urine Glucose (UA) (Negative) mg/dL Urine Ketones (Negative) mg/dL Ur Blood (Man) (Negative) Urine Nitrate (Negative) Urine Bilirubin (Negative) Urine Urobilinogen (<2.0) mg/dL Leukocyte Esterase Rfl (Negative) ANA MARIA/UL Urine RBC (0-2) /hpf Urine WBC (0-3) /hpf Ur Squamous Epith Cells (Few) /hpf Urine Bacteria /hpf Urine Casts Influenza A (RT-PCR) Negative (Negative) Influenza B (RT-PCR) Negative (Negative) RSV (RT-PCR) Negative (Negative) SARS-CoV-2 RNA (RT-PCR) Negative (Negative) 11/24/24 11/25/24 11/25/24 Range/Units 22:04 00:45 06:11 WBC 7.5 (4.5-10.0) K/mm3 RBC 4.86 (4.2-5.4) M/mm3 Hgb 14.2 (12.0-15.0) g/dL Hct 43.5 (37.0-47.0) % MCV 89.5 (80-100) fl MCH 29.2 (26-34) pg MCHC 32.6 (32-36) g/dl RDW 13.5 (11.5-14.5) % Plt Count 208 (150-375) k/mm3 MPV 9.7 (7.4-10.4) fl Immature Gran % (Auto) (0-0.5) % Neut % (Auto) (45.5-73.1) % Lymph % (Auto) (18.3-44.2) % [place] % (Auto) (2.6-8.5) % Eos % (Auto) (0-4.4) % Baso % (Auto) (0.2-1.2) % Lymph # (Auto) (0.9-3.2) K/mm3 [place] # (Auto) (0.1-0.6) K/mm3 Eos # (Auto) (0-0.3) K/mm3 Baso # (Auto) (0.0-0.1) K/mm3 Abs Immat Gran (auto) (0.00-0.031) K/mm3 Absolute Neuts (auto) (1.3-6.7) K/mm3 Absolute Nucleated RBC (0.0-0.012) K/mm3 Nucleated RBC % (0.0-0.2) % PT (11.1-14.7) Seconds INR APTT (22.3-36.8) Seconds D-Dimer (<0.48) ug/mL Sodium 138 (137-145) mmol/L Potassium 3.2 L (3.4-5.0) mmol/L Chloride 104 (98-107) mmol/L Carbon Dioxide 27 (22-30) mmol/L Anion Gap 7 (4-12) mmol/L BUN 17 (7-17) mg/dL Creatinine 0.69 L (0.7-1.0) mg/dL Estim Creat Clear Calc 38 ml/min Estimated GFR > 60 (59 - ) Glucose 84 (65-110) mg/dL Calcium 9.1 (8.4-10.2) mg/dL Magnesium 2.3 (1.6-2.3) mg/dL Total Bilirubin (0.2-1.3) mg/dL Direct Bilirubin (0-0.3) mg/dL Indirect Bilirubin (0-1.1) mg/dL AST (14-36) U/L ALT (6-35) U/L Alkaline Phosphatase (38-126) U/L Troponin I < 0.012 < 0.012 (0.000-0.034) ng/mL NT-Pro-B Natriuret Pep (19.9-100) pg/mL Total Protein (6.3-8.2) g/dL Albumin (3.5-5.1) g/dL Lipase (23-300) U/L TSH (Reflex) (0.465-4.68) uIU/mL Free T4 Urine Color Yellow (Yellow) Urine Appearance Cloudy H (Clear) Urine pH 7.0 (5.0-9.0) Ur Specific [place] 1.007 (1.001-1.035) Urine Protein Negative (Negative) mg/dL Urine Glucose (UA) Negative (Negative) mg/dL Urine Ketones Negative (Negative) mg/dL Ur Blood (Man) 1+ H (Negative) Urine Nitrate Positive H (Negative) Urine Bilirubin Negative (Negative) Urine Urobilinogen 0.2 (<2.0) mg/dL Leukocyte Esterase Rfl 3+ H (Negative) ANA MARIA/UL Urine RBC 0-2 (0-2) /hpf Urine WBC >100 H (0-3) /hpf Ur Squamous Epith Cells None seen (Few) /hpf Urine Bacteria 4+ H /hpf Urine Casts 0-2 Influenza A (RT-PCR) (Negative) Influenza B (RT-PCR) (Negative) RSV (RT-PCR) (Negative) SARS-CoV-2 RNA (RT-PCR) (Negative) 11/25/24 Range/Units 06:11 WBC (4.5-10.0) K/mm3 RBC (4.2-5.4) M/mm3 Hgb (12.0-15.0) g/dL Hct (37.0-47.0) % MCV (80-100) fl MCH (26-34) pg MCHC (32-36) g/dl RDW (11.5-14.5) % Plt Count (150-375) k/mm3 MPV (7.4-10.4) fl Immature Gran % (Auto) (0-0.5) % Neut % (Auto) (45.5-73.1) % Lymph % (Auto) (18.3-44.2) % [place] % (Auto) (2.6-8.5) % Eos % (Auto) (0-4.4) % Baso % (Auto) (0.2-1.2) % Lymph # (Auto) (0.9-3.2) K/mm3 [place] # (Auto) (0.1-0.6) K/mm3 Eos # (Auto) (0-0.3) K/mm3 Baso # (Auto) (0.0-0.1) K/mm3 Abs Immat Gran (auto) (0.00-0.031) K/mm3 Absolute Neuts (auto) (1.3-6.7) K/mm3 Absolute Nucleated RBC (0.0-0.012) K/mm3 Nucleated RBC % (0.0-0.2) % PT (11.1-14.7) Seconds INR APTT (22.3-36.8) Seconds D-Dimer (<0.48) ug/mL Sodium (137-145) mmol/L Potassium (3.4-5.0) mmol/L Chloride (98-107) mmol/L Carbon Dioxide (22-30) mmol/L Anion Gap (4-12) mmol/L BUN (7-17) mg/dL Creatinine (0.7-1.0) mg/dL Estim Creat Clear Calc ml/min Estimated GFR (59 - ) Glucose (65-110) mg/dL Calcium (8.4-10.2) mg/dL Magnesium (1.6-2.3) mg/dL Total Bilirubin (0.2-1.3) mg/dL Direct Bilirubin (0-0.3) mg/dL Indirect Bilirubin (0-1.1) mg/dL AST (14-36) U/L ALT (6-35) U/L Alkaline Phosphatase (38-126) U/L Troponin I Cancelled (0.000-0.034) ng/mL NT-Pro-B Natriuret Pep (19.9-100) pg/mL Total Protein (6.3-8.2) g/dL Albumin (3.5-5.1) g/dL Lipase (23-300) U/L TSH (Reflex) 4.680 (0.465-4.68) uIU/mL Free T4 Pending Urine Color (Yellow) Urine Appearance (Clear) Urine pH (5.0-9.0) Ur Specific [place] (1.001-1.035) Urine Protein (Negative) mg/dL Urine Glucose (UA) (Negative) mg/dL Urine Ketones (Negative) mg/dL Ur Blood (Man) (Negative) Urine Nitrate (Negative) Urine Bilirubin (Negative) Urine Urobilinogen (<2.0) mg/dL Leukocyte Esterase Rfl (Negative) ANA MARIA/UL Urine RBC (0-2) /hpf Urine WBC (0-3) /hpf Ur Squamous Epith Cells (Few) /hpf Urine Bacteria /hpf Urine Casts Influenza A (RT-PCR) (Negative) Influenza B (RT-PCR) (Negative) RSV (RT-PCR) (Negative) SARS-CoV-2 RNA (RT-PCR) (Negative) Imaging Data Radiologist's impression: Impressions Chest X-Ray 11/24/24 19:14 IMPRESSION: 1. No acute cardiopulmonary findings. ECG Data EKG #1: Attestation: I personally reviewed and interpreted this ECG as follows: ECG completion date: 11/24/24 ECG completion time: 18:49 Prior ECG tracings: available for review (06/24/2024, atrial fibrillation) Interpretation: Irregularly irregular rhythm at a rate of 79 beats per minute. QRS 102. QT/QTC 391/449. Good R-wave progression across the precordial leads. T-wave flattening in 2 but upright in contiguous inferior leads. T-waves appear inverted in V4 V5 as well as V6. EKG #2: Attestation: I personally reviewed and interpreted this ECG as follows: ECG completion date: 11/24/24 ECG completion time: 21:46 Interpretation: Irregularly irregular rhythm consistent with atrial fibrillation at a rate of 69 beats per minute. QRS 90. QT/QTC 4 4/433. Good R-wave progression across the precordial leads. T-wave flattening in 2 but upright in 3. T-wave inversions in V4 through V6. Discharge Plan Discharge Clinical Impression: Chest pain, Hypokalemia, Acute heart failure, UTI (urinary tract infection) Patient Disposition: Still a Patient Condition: Stable
--- OUTSIDE RECORDS SUMMARY | 2024-11-24 21:14 | XMS_ITS | Encounter Summary ---
Author Organization [facility] Address [address] [place] [address] Care Team Providers Care Supervisor [employer] Name Role Phone Tiffanie Vega MD, Robert Unavailable [phone] Janee Ahn ANP-BC Unavailable [phone] Tanvi Cordova NP Unavailable [phone] Wilbert Kimbrough MD Unavailable [phone] Spencer Nguyen MD Unavailable Unavailable Tahir Wiggins PA-C Unavailable [phone] Carmenza Fernandez MD Primary Care Provider [phone] Encounter Details Date Type Department Care Team (Late st Contact Info) Description 07/13/2024 Abstract [facility] [address] [address] [place] Tubbs [place] Social History Tobacco Use [...] Description 05/11/2025 1:30 PM CDT Office Visit [facility] [address] Juan Luis Erazo MD [address] [facility] [address] [place] [address] documented as of this encounter Procedures Procedure [...] on filedocumented in this encounter Care Teams Supervisor [employer] Relationship Specialty Start Date End Date Carmenza Fernandez MD [address] [place] [address] PCP - General FAMILY PRACTICE 10/01/23 Luis Angel Moreno MD CARDIOVASCULAR DISEASE 02/28/16 Janee Ahn ANP- [address] [facility] [address] [place] [address] NURSE PRACTITIONER 02/28/16 Tanvi Cordova NP [address] [facility] [address] [place] [address] NURSE PRACTITIONER 04/27/16 Wilbert Kimbrough MD [address] [facility] [address] [place] [address] CARDIOVASCULAR DISEASE 03/15/17 Spencer Nguyen MD [address] [facility] [address] [place] [address] EP Wellness Nurse Rn CLINICAL CARDIAC ELECTROPHYSIOLOGY 03/22/17 Tahir Wiggins PA-C [address] [place] [phone] Electrophysiology 03/22/17 documented as of this encounter
--- OUTSIDE RECORDS SUMMARY | 2024-11-24 21:14 | XMS_ITS | Encounter Summary ---
Author Organization [facility] Address [address] [place] [address] Care Team Providers Care Obstetrician/Gynecologist Name Role Phone Evens Mattson MD Primary Care Provider Unavailab gege Vega MD, Robert Unavailable [phone] Janee Ahn ANP-BC Unavailable [phone] Tanvi Cordova NP Unavailable [phone] Wilbert Kimbrough MD Unavailable [phone] Spencer Nguyen MD Unavailable Unavailable Tahir WigginsC Unavailable [phone] Carmenza Fernandez MD Primary Care Provider [phone] Encounter Details Date Type Department Care Team (Latest Contact Info) Description 12/28/2017 Abstract [facility] Adelia Abarca MD Social History [...] Description 05/11/2025 1:30 PM CDT Office Visit [facility] [address] Juan Luis Erazo MD [address] [facility] [address] [place] [phone] documented as of this encounter Visit Diagnoses Not on filedocumented in this encounter Care Teams Obstetrician/Gynecologist Relationship Specialty Start Date End Date Evens Mattson MD PCP - General INTERNAL MEDICINE 02/28/16 09/30/23 Carmenza Fernandez MD [address] [place] [address] PCP - General FAMILY PRACTICE 10/01/23 Luis Angel Morneo MD CARDIOVASCULAR DISEASE 02/28/16 Janee Ahn, [facility]- [address] [facility] [address] [place] [address] NURSE PRACTITIONER 02/28/16 Tanvi Cordova NP [address] [facility] [address] [place] [address] NURSE PRACTITIONER 04/27/16 Wilbert Kimbrough MD [address] [facility] [address] [place] [address] CARDIOVASCULAR DISEASE 03/15/17 Spencer Nguyen MD [address] [facility] [address] [place] [address] EP Audio Technician CLINICAL CARDIAC ELECTROPHYSIOLOGY 03/22/17 Tahir Wiggins PA-C [address] [place] [address] Electrophysiology 03/22/17 documented as of this encounter
--- OUTSIDE RECORDS SUMMARY | 2024-11-24 21:14 | XMS_ITS | Encounter Summary ---
Author Organization [facility] Address [address] [place] [address] Care Team Providers Care Rack Worker Name Role Phone Evens Mattson MD Primary Care Provider Unavailab gege Vega MD, Robert Unavailable [phone] Janee Ahn ANP-BC Unavailable [phone] Tanvi Cordova NP Unavailable [phone] Wilbert Kimbrough MD Unavailable [phone] Spencer Nguyen MD Unavailable Unavailable Tahir WigginsC Unavailable [phone] Carmenza Fernandez MD Primary Care Provider [phone] Encounter Details Date Type Department Care Team (Late st Contact Info) Description 10/18/2014 Abstract [facility] [address] [place] [address] Luis Angel Moreno MD [address] [facility] [address] [place] [address] Social History Tobacco Use Types [...] Description 05/11/2025 1:30 PM CDT Office Visit [facility] [address] Juan Luis Erazo MD [address] [facility] [address] [place] [address] documented as of this encounter Visit Diagnoses Not on filedocumented in this encounter Care Teams Rack Worker Relationship Specialty Start Date End Date Evens Mattson MD PCP - General INTERNAL MEDICINE 02/28/16 09/30/23 Carmenza Fernandez MD [address] [place] [address] PCP - General FAMILY PRACTICE 10/01/23 Luis Angel Moreno MD CARDIOVASCULAR DISEASE 02/28/16 Janee Ahn ANP- [address] [facility] [address] [place] [address] NURSE PRACTITIONER 02/28/16 Tanvi Cordova NP [address] [facility] [address] [place] [address] NURSE PRACTITIONER 04/27/16 Wilbert Kimbrough MD [address] [facility] [address] [place] [address] CARDIOVASCULAR DISEASE 03/15/17 Spencer Nguyen MD [address] [facility] [address] [place] [address] EP Talent Sourcer CLINICAL CARDIAC ELECTROPHYSIOLOGY 03/22/17 Tahir Wiggins PA-C [address] [place] [address] Electrophysiology 03/22/17 documented as of this encounter
--- OUTSIDE RECORDS SUMMARY | 2024-11-24 21:14 | XMS_ITS | Clinical Summary ---
Author Organization [facility] Address [address] [place] [address] Care Team Providers Care Panel Fitter Name Role Phone Tiffanie Vega MD, Robert Unavailable [phone] Janee Ahn ANP-BC Unavailable [phone] Tanvi Cordova NP Unavailable [phone] Wilbert Kimbrough MD Unavailable [phone] Spencer Nguyen MD Unavailable Unavailable Tahir Wiggins PA-C Unavailable [phone] Carmenza Fernandez MD Primary Care Provider [phone] Allergies Active Allergy Reactions Criticality Noted Date [...] Date Subdural hematoma 01/09/2022 Paroxysmal atrial fibrillation ([facility]) 03/29/2020 CVA (cerebral vascular accident) ([facility]) 04/05/2018 Thrombus of left atrial appendage 04/05/2018 Sepsis ([facility]) 04/05/2018 UTI (urinary tract infection) 04/05/2018 Acute ischemic stroke ([facility]) 04/05/19 Intracranial hemorrhage, spo ntaneous intraparenchymal, associated with arterial infarction, acute ([facility]) 04/05/2018 Current use of custodial anticoagulation 018 Shortness of breath 01/26/2017 Persistent atrial fibrillation 04/07/2016 Angina, class III 04/07/2016 Dyspnea on exertion 03/22/2016 S/P coronary artery stent placement 03/16/2016 NSTEMI (non-ST elevated myoc ardial infarction) ([facility]) 01/28/2007 CAD (coronary artery disease), [place] coronary a rtery Overview (02/07/2016): s/p stent Essential hypertension Dyslipidemia Sleep apnea Overview (02/07/2016): does not wear CPAP TIA (transient ischemic attack) Left arm pain Resolved Problems Problem Noted Date Diagnosed Date Resolved Date Statin intolerance 03/16/2016 0 Encounters Date Type Department Care Team Description 11/10/2024 11:00 AM CDT Office Visit [facility] [address] Juan Luis Erazo MD Atrial Fibrillation 11/10/2024 Travel from Last 3 Months Family History Relation Status Comments Brother 1 Alive CABG Brother 2 Child 1 Alive Child 2 Alive Child 3 Alive Child 4 Alive Child 5 Father (Age 48) CAD, [place] Maternal Grandfather (Age 87 ) Stroke Maternal [...] 36.4 C (97.5 F) 03/29/2020 11:09 AM EMERGENCY PREPAREDNESS MANAGER Respiratory Rate 14 03/29/2020 11:0 9 AM EMERGENCY PREPAREDNESS MANAGER Oxygen Saturation 93% 11/10/2024 11: 18 AM CDT Inhaled Oxygen Concentration - - Weight 60.7 kg (133 lb 12.8 oz) 025 12:01 PM CDT Height 157.5 cm (5' 2) 11/10/2024 11:1 8 AM CDT Body Mass Index 24.47 05/12/2024 12:01 PM CDT Plan of Treatment Upcoming Encounters Date Type Department Care Team (Late st Contact Info) Description 05/11/2025 1:30 PM CDT Office Visit [facility] [address] Juan Luis Erazo MD [address] [place] [phone] Health Maintenance Due Date Last Done Comments DTaP, Tdap and Td Vaccines (1 - Tdap) 06/20/1954 Annual Medicare Wellness Visit 06/20/2000 RSV Immunization or 60+ Years (1 - 1-dose 75+ series) 06/20/2010 ASCVD LDL 04/06/2019 04/06/2018, 08/22, 09/02/2016, Additional history exists Pneumococcal Vaccine: 50+ Years (2 of 2 - PCV) 10/21/2021 10/21/2020, 08/02/2019 PHQ-2 (Physician [place]) 02/23/2024 COVID-19 Vaccine ( season) 2024 12/31/2022, [...] Comments LIPID PANEL Routine 04/06/2018 2:23 AM EMERGENCY PREPAREDNESS MANAGER from Last 3 Months or Most Recently Relevant to Health Maintenance Results * LIPID PANEL (04/06/2018 2:23 AM EMERGENCY PREPAREDNESS MANAGER) CHOLESTEROL 173 MG/DL 04/06/2018 7:31 AM EMERGENCY PREPAREDNESS MANAGER [facility] Comment:DESIRABLE: <200 TRIGLYCERIDES 91 MG/DL 04/06/2018 7:31 AM [facility] Comment:<150 NORMAL HDL 60 >49 MG/DL 04/06/2018 7:31 AM [facility] LDL (CALCULATED) 95 MG/DL 04/06/19 19 7:31 AM [facility] Comment:<100 OPTIMAL VLDL CALCULATION 18 MG/DL 04/06/19 19 7:31 AM [facility] Comment:REFERENCE RANGE NOT ESTABLISHED CHOL/HDL RATIO 2.9 04/06/2018 7:31 AM [facility] Comment:REFERENCE RANGE NOT ESTABLISHED LDL/HDL 1.6 04/06/2018 7:31 AM [facility] Comment:REFERENCE RANGE NOT ESTABLISHED NON HDL CHOLESTEROL 113 MG/DL 04/06/2018 7:31 AM [facility] Comment:REFERENCE RANGE NOT ESTABLISHED 04/06/2018 2:23 AM EMERGENCY PREPAREDNESS MANAGER us Galdino Go MD LABORATORY Final Resul t [facility] [address] [place] [address], [id number] from Last 3 Months or Most Recently Relevant to Health Maintenance Insurance MEDICARE MEDICARE [facility] Advance Directives Documents on File Type Date Recorded Patient Driller Portable Expl anation Advance Directives and Living Will 04/07/2018 1:14 PM 02/23/11 LIVING WILL Power of Aquaculturist 04/07/2018 1:14 PM Advance Directives and Living Will 05/08/2017 ADVANCE DIRECTIVE Advance Directives and Living Will 05/08/2017 LIVING WILL Advance Directives and Living Will 05/08/2017 POWER OF BUS WASHER FO R HEALTH CARE Advance Directives and Living Will 05/08/2017 SHORT FORM POWER OF BUS WASHER Advance Directives and Living Will 03/15/2017 SHORT FORM POWER OF BUS WASHER Advance Directives and Living Will 03/15/2017 ADVANCE DIRECTIVE Advance Directives and Living Will 03/15/2017 LIVING WILL Advance Directives and Living Will 03/15/2017 POWER OF BUS WASHER FO R HEALTH CARE Advance Directives and Living Will 03/12/2017 ADVANCE DIRECTIVE Advance Directives and Living Will 03/12/2017 LIVING WILL Advance Directives and Living Will 03/12/2017 POWER OF BUS WASHER FO R HEALTH CARE Advance Directives and Living Will 03/12/2017 SHORT FORM POWER OF BUS WASHER Advance Directives and Living Will 03/12/2017 ADVANCE DIRECTIVE Advance Directives and Living Will 03/12/2017 LIVING WILL Advance Directives and Living Will 03/12/2017 POWER OF BUS WASHER FO R HEALTH CARE Advance Directives and Living Will 03/12/2017 SHORT FORM POWER OF BUS WASHER Advance Directives and Living Will 01/26/2017 ADVANCE DIRECTIVE Advance Directives and Living Will 01/26/2017 SHORT FORM POWER OF BUS WASHER Advance Directives and Living Will 01/26/2017 LIVING WILL Advance Directives and Living Will 01/26/2017 POWER OF BUS WASHER FO R HEALTH CARE Advance Directives and Living Will 11/17/2016 LIVING WILL Advance Directives and Living Will 11/17/2016 ADVANCE DIRECTIVE Advance Directives and Living Will 11/17/2016 POWER OF BUS WASHER FO R HEALTH CARE Advance Directives and Living Will 11/17/2016 SHORT FORM POWER OF BUS WASHER Advance Directives and Living Will 09/16/2016 ADVANCE DIRECTIVE Advance Directives and Living Will 09/16/2016 LIVING WILL Advance Directives and Living Will 09/16/2016 POWER OF BUS WASHER FO R HEALTH CARE Advance Directives and Living Will 09/02/2016 POWER OF BUS WASHER FO R HEALTH CARE Advance Directives and Living Will 09/02/2016 ADVANCE DIRECTIVE Advance Directives and Living Will 09/02/2016 LIVING WILL Advance Directives and Living Will 05/20/2016 LIVING WILL Advance Directives and Living Will 05/20/2016 ADVANCE DIRECTIVE Advance Directives and Living Will 05/20/2016 POWER OF BUS WASHER FO R HEALTH CARE Advance Directives and Living Will 04/16/2016 ADVANCE DIRECTIVE Advance Directives and Living Will 04/16/2016 LIVING WILL Advance Directives and Living Will 04/16/2016 POWER OF BUS WASHER FO R HEALTH CARE Advance Directives and [...] 6:30 AM 04/16/2018 4:34 PM Care Teams Panel Fitter Relationship Specialty Start Date End Date Carmenza Fernandez [place] [address] PCP - General FAMILY PRACTICE 10/01/23 Luis Angel Moreno MD CARDIOVASCULAR DISEASE 02/28/16 Janee Ahn, ANP- [address] [address] NURSE PRACTITIONER 02/28/16 Tanvi Cordova NP [address] [address] NURSE PRACTITIONER 04/27/16 Wilbert Kimbrough MD [address] [address] CARDIOVASCULAR DISEASE 03/15/17 Spencer Nguyen MD [address] [facility] [id number] [place] [address] EP Packager Head CLINICAL CARDIAC ELECTROPHYSIOLOGY 03/22/17 Tahir Wiggins PA-C [address] [place] [address] Electrophysiology 03/22/17
--- OUTSIDE RECORDS SUMMARY | 2024-11-24 21:14 | XMS_ITS | Clinical Summary ---
Author Organization [facility] Address [address] [place] [address] Care Team Providers Care Manager Hardware Name Role Phone Carmenza Fernandez MD Primary Care Provider [phone] Allergies Active Allergy Reactions Criticality Noted Date [...] Type Department Care Team Description 10/13/2024 Telephone [facility] [address] [place] [address] [address] [place] [address] Leena Logan MD 10/09/2024 Telephone [facility] [address] [place] [address] Leena Logan MD from Last [...] Comments Blood Pressure 142/80 03/06/2024 10:45 AM SPRAY GUN STRIPER Pulse 74 03/06/2024 10:45 AM SPRAY GUN STRIPER Temperature 36.6 C (97.9 F) 06/01/2023 9:39 AM CDT Respiratory Rate 16 06/01/2023 12:00 PM CDT Oxygen Saturation 98% 03/06/2024 10:45 AM SPRAY GUN STRIPER Inhaled Oxygen Concentration - - Weight 68 kg (149 lb 14.6 oz) 06/01/2023 9:39 AM CDT Height 157.5 cm (5' 2) 03/06/2024 10:45 AM SPRAY GUN STRIPER Body Mass Index - - Plan of [...] Vaccine (#1) 2024 12/17/2022, 2021 Insurance MEDICARE [facility] MEDICARE [facility] MEDICARE SUPPLEMENT Care Teams Manager Hardware Relationship Specialty Start Date End Date Carmenza Fernandez MD PCP - General Family Medicine 06/01/23
--- NOTE | 2024-11-24 21:19 | ECG_ITS ---
Test Date: 2024-11-24 21:46:54 Measurements Intervals [place] Rate: 69 P: 0 CO: 0 QRS: 12 QRSD: 90 T: 154 QT: 404 QTc: 433 Interpretive Statements ATRIAL FIBRILLATION LEFT VENTRICULAR HYPERTROPHY WITH ST-T CHANGE CONSIDER INFERIOR INFARCT, AGE INDETERMINATE BORDERLINE ST-T WAVE ABNORMALITY- ANTEROLATERAL LEADS BASELINE ARTIFACT- I, II, III, AVR, AVL, AVF, V1-V6 ABNORMAL ECG Compared to ECG 11/24/2024 18:49:56 NO SIGNIFICANT CHANGE Electronically Signed On 11-25-2024 06:56:13 CDT by Silviano Jay D.O.
[2024-11-24 21:59] LABS: Magnesium 2.0 mg/dL (1.6-2.3)
[2024-11-24 22:12] LABS: NT Pro B Type Natriuretic Pept 3790 pg/mL (19.9-100); Troponin I < 0.012 ng/mL (0.000-0.034)
[2024-11-24 22:15] LABS: Add Urine Microscopic? YES; Appearance Urine Cloudy (Clear); Glucose Urine UA Negative (Negative); Leukocyte Esterase Ur 3+ LEU/UL (Negative); Nitrate Urine Positive (Negative); Non Pathogenic Casts 0-2; Specific Grav Ur 1.007 (1.001-1.035)
[2024-11-24 22:20] LABS: Influenza A QL RT-PCR Negative (Negative); Influenza B QL RT-PCR Negative (Negative); RSV RNA, RT-PCR Negative (Negative); SARS-CoV-2 RNA PCR Negative (Negative)
[2024-11-24] MEDS: FUROSEMIDE INJ 40 MG/4 ML VIAL 20 MG IV PUSH (22:50)
[2024-11-24] MEDS: POTASSIUM BICARBONATE 25 MEQ TABEF PO (22:50)
[2024-11-24] MEDS: ACETAMINOPHEN 325 MG TABLET 650 MG PO (22:50)
[2024-11-24] MEDS: cefTRIAXone 1 GM in SODIUM CHLORIDE 0.9% IV 50 ML 100 ML IVPB (22:50)
[2024-11-24] MEDS: NITROGLYCERIN SL 0.4 MG TABLET SUBLINGUAL (22:55)
[2024-11-24] MEDS: HYDROcodone/acetaminophen (*CRX) 5-325 MG TABLET 1 TAB PO (23:43)
[2024-11-24] MEDS: ONDANSETRON INJ 4 MG/2 ML VIAL IV PUSH (23:43)
[2024-11-25] VITALS (16 sets, daily range): BP systolic 103–150; BP diastolic 66–79; PULSE 59–82; RESP 12–16; TEMP 36.4–37; O2SAT 93–98; BMI 24.3
--- NOTE | 2024-11-25 | ECHO_ITS ---
Patient Info Name: Domenica Anthony Age: 89 years : 1935 Gender: Female Ht: 62 in Wt: 139 lbs BSA: 1.67 m2 HR: 78 bpm BP: 143 / 77 mmHg Technical Quality: Good Exam Date: 11/25/2024 9:01 AM Patient Status: I Admit Date: 11/25/2024 Exam Type: CA echo dop color flow w con Complete two-dimensional, color flow and Doppler transthoracic echocardiogram is performed with contrast to opacify the left ventricle and to improve the deliniation of the left ventricle endocardial borders. Staff Referring Physician: Rebel Guo Psychological Aide: Alicia Solomon Attending Provider: Murali Hardwick Contrast/Agitated Saline Contrast/Ag. Saline: Definity Amount: 2.00 ml Summary 1. Left ventricular systolic function is normal, estimated at 60-65. 2. There is mildly increased left ventricular wall thickness. 3. The left ventricular diastolic function is abnormal. 4. Left atrial chamber dimension is moderately enlarged. 5. Right atrial chamber dimension is moderately enlarged. 6. There is moderate mitral valve regurgitation. 7. There is mild to moderate tricuspid valve regurgitation. 8. Mild pulmonary hypertension, estimated pulmonary arterial systolic pressure is 40 mmHg. Left Ventricle Left ventricular chamber dimension is normal. Left ventricular systolic function is normal, estimated at 60-65. There is mildly increased left ventricular wall thickness. Left ventricular septal wall motion is normal. The left ventricular diastolic function is abnormal. Right Ventricle Right ventricular chamber dimension is normal. Right ventricular systolic function is normal. Left Atria Left atrial chamber dimension is moderately enlarged. Right Atria Right atrial chamber dimension is moderately enlarged. Aortic Valve The aortic valve is trileaflet. There is mild aortic valve sclerosis. There is no aortic valve stenosis. There is no aortic valve regurgitation. Pulmonic Valve The pulmonic valve is normal. There is no pulmonic valve stenosis. There is mild pulmonic regurgitation. Mitral Valve The mitral valve has normal leaflets. There is no mitral valve stenosis. There is moderate mitral valve regurgitation. The mitral valve annulus is mildly calcified. Tricuspid Valve The tricuspid valve leaflets are normal. There is no significant tricuspid valve stenosis. There is mild to moderate tricuspid valve regurgitation. Mild pulmonary hypertension, estimated pulmonary arterial systolic pressure is 40 mmHg. Pericardium/Pleural The pericardium appears normal. There is no pericardial effusion. Inferior Vena Cava Normal inferior vena cava with >50% collapse upon inspiration consistent with normal right atrial pressure, 5 mmHg. Aorta The aortic root size at the sinus of Valsalva is normal. The prox ascending aorta size is normal. Left Ventricular Outflow Tract Name Value Normal LVOT 2D LVOT Diameter 2.0 cm LVOT Doppler LVOT Peak Velocity 89 cm/s LVOT Peak Gradient 3 mmHg LVOT Mean Gradient 2 mmHg LVOT VTI 20 cm LVOT VTI/AV VTI Ratio 0.5 LVOT Stroke Volume 58 ml LVOT CO 4.6 l/min LVOT CI 2.7 l/min/m2 Pulmonic Valve Name Value Normal RVOT Doppler RVOT Peak Velocity 60 cm/s RVOT Peak Gradient 1 mmHg PV Doppler PV Peak Velocity 95 cm/s PV Peak Gradient 4 mmHg PV Regurgitation Doppler PA Peak End Diastolic Velocity 117 cm/s Mitral Valve Name Value Normal MV Diastolic Function MV E Peak Velocity 113 cm/s MV A Peak Velocity 26 cm/s MV E/A 4.4 MV Decel Time (PW) 322 ms MV Annular TDI MV E/e' (Septal) 19.8 MV E/e' (Lateral) 16.4 MV E/e' (Average) 18.1 Tricuspid Valve Name Value Normal TV Regurgitation Doppler TR Peak Velocity 295 cm/s TR Peak Gradient 33 mmHg Estimated PAP/RSVP RA Pressure 5 mmHg <=5 PA Systolic Pressure 40 mmHg <36 RV Systolic Pressure 40 mmHg <36 Aortic Valve Name Value Normal AV Doppler AV Peak Velocity 177 cm/s AV Peak Gradient 13 mmHg AV Mean Gradient 7 mmHg AV VTI 38 cm AV Area (Cont Eq VTI) 1.5 cm2 >=3.0 AV Area (Cont Eq Wan) 1.5 cm2 AV DI (Wan) 0.50 AV Regurgitation 2D LVOT Area 3.0 cm2 Ventricles Name Value Normal LV Dimensions 2D/MM IVS Diastolic Thickness (2D) 0.9 cm 0.6-1.0 LVID Diastole (2D) 4.2 cm 3.8-5.2 LVIW Diastolic Thickness (2D) 1.6 cm 0.6-0.9 LVID Systole (2D) 2.9 cm 2.2-3.5 LVOT Diameter 2.0 cm LV Mass (2D Cubed) 188.73 g 67.00-162.00 LV Mass Index (2D Cubed) 113 g/m2 43-95 Relative Wall Thickness (2D) 0.76 <=0.42 LV Fractional Shortening/Ejection Fraction 2D/MM LV Fractional Shortening (2D) 30 % 27-45 LV EF (2D [place]) 58 % LV Diastolic Volume (4C MOD) 57 ml LV EF (4C MOD) 78 % LV Diastolic Volume (2C MOD) 87 ml LV EF (2C MOD) 84 % LV Diastolic Volume (BP MOD) 72 ml 46-106 LV Diastolic Volume Index (BP MOD) 43 ml/m2 29-61 LV Systolic Volume (BP MOD) 14 ml 14-42 LV Systolic Volume Index (BP MOD) 8 ml/m2 8-24 LV EF (BP MOD) 81 % 54-74 LV Diastolic Length (4C) 6.2 cm LV Systolic Length (4C) 5.2 cm LV Stroke Volume (4C MOD) 44 ml Atria Name Value Normal LA Dimensions LA Volume (4C A-L) 81 ml RA Dimensions RA Systolic Major [place] Length (4C) 7.3 cm 2.2-2.8 RA Area (4C) 26.6 cm2 <=18.0 Report Signatures
--- NOTE | 2024-11-25 00:40 | ECG_ITS ---
Test Date: 2024-11-25 00:48:51 Measurements Intervals [place] Rate: 67 P: 0 TN: 0 QRS: -77 QRSD: 89 T: 177 QT: 405 QTc: 429 Interpretive Statements ATRIAL FIBRILLATION LEFT AXIS DEVIATION LEFT VENTRICULAR HYPERTROPHY WITH ST-T CHANGE CONSIDER INFERIOR INFARCT, AGE INDETERMINATE T WAVE ABNORMALITY IN ANTERIOR LEADS- CONSIDER ISCHEMIA BASELINE ARTIFACT- I, II, III, AVR, AVL, AVF, V1-V6 ABNORMAL ECG Compared to ECG 11/24/2024 21:46:54 Possible ischemia now present Electronically Signed On 11-25-2024 07:01:00 CDT by Silviano Jay D.O.
[2024-11-25 01:25] LABS: Troponin I < 0.012 ng/mL (0.000-0.034)
--- NOTE | 2024-11-25 02:40 | PM.IMHP ---
H&P: HPI History of Present Illness Date/Time: 11/25/24 02:40 Chief Complaint: Chest pain Narrative: This is a 89-year-old female patient who resides at the [facility]. 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 She also has a history of atrial fibrillation which is rate controlled and she is on anticoagulation. She denies any fever chills or any cough. She is having bilateral shoulder pain without any injury or trauma. She also stated that she has some edema to left lower extremity which she has had since her stroke. Her sodium was slightly low at 136 with potassium 3.3. Glucose is 135. Magnesium is 2.0 which is normal. Troponin x3 are negative. BNP is 3790. Urinalysis 1+ urine and positive nitrates. She has 3+ leukocytes with greater than 100 wbc's in her urine. She has 4+ urine bacteria. However the patient denies any urinary symptoms. Viral serology are negative. Chest x-ray was read as no acute cardiopulmonary findings. The patient was given aspirin, potassium, Tylenol, Rocephin, Lasix, nitro, [place], and Zofran. 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 Erazo [facility] AMI (acute myocardial infarction) HUDSON (obstructive sleep apnea) Intolerant of CPAP Hypertension Hemiparesis due to recent stroke Atrial fibrillation Surgical History Surgical History Hx of cataract extraction Bilateral eyes History of coronary artery stent placement X3 History of total bilateral knee replacement Family History Family History Sibling Cerebrovascular accident Sibling Cerebrovascular accident Father Acute myocardial infarction, Onset Age: 48 Mother Ovarian cancer Social History Social History Social History: . 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 She resides at [facility] Ambulates with walker, wheelchair Code Status: Modified code DNI Smoking status: Never smoker Alcohol intake: never Substance use: never Substance use type: does not use Do You Feel Safe in your Home?: Yes Lack of Transportation: No Lack of Food: Never True Current Housing: I Have Housing Concerned About Future Housing: No Difficulty Paying Gas/Electric Bills: No Difficulty Paying for Meds: No Currently Unemployed: No Education: Associate Degree Difficulty w/ Childcare or Family Care: No Living arrangements: [facility] Additional living arrangements comments: [facility] since 09/16/22; Previously Lived with her daughter Occupation/Education: retired Spiritual care concerns: No Agree to blood products: Yes Meds Home Medications and Allergies Home Medications ?Medication ?Instructions ?Recorded ?Confirmed ?Type amlodipine 5 mg tablet 5 mg PO DAILY 07/08/22 11/25/24 History apixaban 2.5 mg tablet (Eliquis) 5 mg PO Q12H 07/08/22 11/25/24 History losartan 50 mg tablet 50 mg PO DAILY 07/08/22 11/25/24 History metoprolol succinate 50 mg 50 mg PO DAILY 07/08/22 11/25/24 History tablet,extended release 24 hr nitroglycerin 0.4 mg sublingual 0.4 mg sublingual Q5M PRN chest 07/08/22 11/25/24 History tablet pain timolol maleate 0.5 % eye drops 1 drp EACH EYE DAILY 07/08/22 11/25/24 History rosuvastatin 10 mg tablet 10 mg PO .qod #90 tabs 08/17/22 11/25/24 Rx [facility]1 ea 01/18/23 11/25/24 Rx tramadol 50 mg tablet 50 mg PO Q12H PRN pain #14 tabs 06/24/24 11/25/24 Rx custom AFO shoe #1 ea 08/07/24 11/25/24 Rx doxepin 10 mg capsule 10 mg PO QHS #30 caps 11/10/24 11/25/24 Rx potassium chloride 10 mEq 10 meq PO BID #180 caps 11/24/24 11/25/24 Rx capsule,extended release tramadol 50 mg tablet 25 mg (1/2 x 50 mg) PO Q6H PRN 11/24/24 11/25/24 Rx pain #15 tabs Allergies Allergy/AdvReac Type Severity Reaction Status Date / Time propoxyphene Allergy Intermediate Unknown Verified 11/10/24 08:21 Sulfa (Sulfonamide Allergy Intermediate Itching Verified 11/10/24 08:21 Antibiotics) atorvastatin AdvReac Severe Muscle Pain Verified 11/10/24 08:21 pravastatin AdvReac Severe Muscle Pain Verified 11/10/24 08:21 amoxicillin AdvReac Intermediate Diarrhea Verified 11/25/24 14:03 meperidine AdvReac Intermediate Nausea and Verified 11/25/24 14:03 Vomiting Vital Signs Vital Signs - 24 hr 11/24/24 18:38 11/24/24 20:45 11/24/24 20:45 Temperature 99 F Pulse Rate 87 77 Respiratory Rate 18 22 H Blood Pressure 141/68 H Pulse Oximetry 95 98 Oxygen Delivery Room Air Room Air 11/24/24 21:00 11/24/24 21:19 11/24/24 21:30 Temperature Pulse Rate 73 73 71 Respiratory Rate 28 H 12 18 Blood Pressure Pulse Oximetry 98 97 Oxygen Delivery 11/24/24 21:45 11/24/24 22:01 11/24/24 22:02 Temperature Pulse Rate 78 77 76 Respiratory Rate 21 H 17 23 H Blood Pressure 123/80 Pulse Oximetry 97 100 95 Oxygen Delivery Exam Const: General: cooperative, healthy appearing, comfortable, no acute distress, well developed, awake, Physically active, average body habitus and well nourished HENMT: Head: normal to inspection, No palpable skull fracture present, normocephalic and atraumatic Eyes: General: appearance normal, both eyes and all related structures Alignment and Position: alignment normal Periorbital: periorbital findings normal Eyelids: eyelids normal Neck: Neck: normal visual inspection, full ROM, no lymphadenopathy, trachea midline and supple Chest: Chest palpation & inspection: normal inspection of the chest Resp: Effort & Inspection: normal respiratory effort Auscultation: clear to auscultation bilaterally Cardio: Palpation: normal PMI Rate: regular rate Rhythm: abnormal rhythm irregularly irregular Heart sounds: S1 normal heart sound present and S2 normal heart sound present Peripheral pulses: Peripheral pulses 2+ throughout GI: Inspection: normal to inspection Percussion: Yes normal to percussion Auscultation: normal bowel sounds Rectal Exam: deferred : General: Yes no CVA tenderness Back/Spine/Pelvis: Back: no CVA tenderness Cervical Spine: cervical ROM normal Thoracic/Lumbar Spine: thoracic and lumbar spine normal to inspection Pelvis: no pain with anterior-posterior compression Skin: General skin exam: normal color Lesions: no lesions Rashes: no rashes Trauma: no lacerations or abrasions Wounds: no wounds Hair: normal Nails: normal Neuro: General: oriented to person, oriented to place, oriented to time and patient oriented x3 Cranial nerves: Yes Equal, round and reactive pupils present and Yes Normal hearing present Cognition (Neuro): normal cognition Speech: normal speech Gait exam (Neuro): Normal gait present Motor exam (neuro): 5/5 motor strength present throughout Sensory Exam: normal sensation Extrem: General: normal to inspection Right upper extremity: normal to inspection and shoulder/upper arm Left upper extremity: normal to inspection and shoulder/upper arm Right lower extremity: normal to inspection Left lower extremity: normal to inspection Psych: Appearance: grossly normal Mental Status: mental status grossly normal Speech and movement: Normal speech and movement present Affect: normal affect Attitude: cooperative Thought process: Normal thought process present Thought content: Yes Normal thought content present Insight: Good insight present (Psych) Judgement: Good judgement present (Psych) H&P: Results Labs Labs: Short CBC 11/24/24 Range/Units 18:49 WBC 7.6 (4.5-10.0) K/mm3 Hgb 14.1 (12.0-15.0) g/dL Hct 42.9 (37.0-47.0) % Plt Count 202 (150-375) k/mm3 BMP 11/24/24 18:49 Sodium 136 L Potassium 3.3 L Chloride 102 Carbon Dioxide 25 BUN 21 H Creatinine 0.70 Glucose 135 H Calcium 9.4 Cardiac Enzymes 11/24/24 11/24/24 11/25/24 Range/Units 18:49 21:40 00:45 Troponin I < 0.012 < 0.012 < 0.012 (0.000-0.034) ng/mL Liver Function 11/24/24 11/24/24 Range/Units 18:49 21:40 Total Bilirubin 2.0 H (0.2-1.3) mg/dL Direct Bilirubin 0.0 (0-0.3) mg/dL AST 32 (14-36) U/L ALT 24 (6-35) U/L Alkaline Phosphatase 70 (38-126) U/L Albumin 4.4 (3.5-5.1) g/dL Urine 11/24/24 Range/Units 22:04 Urine Color Yellow (Yellow) Urine Appearance Cloudy H (Clear) Urine pH 7.0 (5.0-9.0) Ur Specific [place] 1.007 (1.001-1.035) Urine Protein Negative (Negative) mg/dL Urine Glucose (UA) Negative (Negative) mg/dL ECG Interpretation: 67 IN 0 QRSd 89 QT 405 QTc 429 --[place]-- P 0 QRS -77 T 177 ATRIAL FIBRILLATION LEFT AXIS DEVIATION [QRS AXIS < -30] ST DEVIATION AND MODERATE T-WAVE ABNORMALITY, CONSIDER ANTEROLATERAL ISCHEMIA [-0.1+ mV T-WAVE IN V3-V6] Compared to ECG 11/24/2024 21:46:54 Left-axis deviation now present T-wave abnormality still present Possible ischemia Imaging Chest x-ray: Radiologist's impression: Impressions Chest X-Ray 11/24/24 19:14 IMPRESSION: 1. No acute cardiopulmonary findings. Assessment and Plan Assessment and plan (1) Chest pain: Code(s): R07.9 - Chest pain, unspecified Status: Acute Assessment and Plan: -EKG was read as 67 IN 0 QRSd 89 QT 405 QTc 429 --[place]-- P 0 QRS -77 T 177 ATRIAL FIBRILLATION LEFT AXIS DEVIATION [QRS AXIS < -30] ST DEVIATION AND MODERATE T-WAVE ABNORMALITY, CONSIDER ANTEROLATERAL ISCHEMIA [-0.1+ mV T-WAVE IN V3-V6] Compared to ECG 11/24/2024 21:46:54 Left-axis deviation now present T-wave abnormality still present Possible ischemia -cardiac enzymes negative. -cardiology consultation to greatly be appreciated. Her heart score is 6. She has a history of 3 cardiac stents. -the patient mostly complains of pain between her shoulder blades. -an echo has been ordered. -continue with Crestor (2) UTI (urinary tract infection): Qualifiers: Hematuria presence: without hematuria Urinary tract infection type: acute cystitis Qualified Code(s): N30.00 - Acute cystitis without hematuria Code(s): N39.0 - Urinary tract infection, site not specified Status: Acute Assessment and Plan: -start the patient on Rocephin. Pending which blind and urine cultures. -urine is cloudy with positive nitrate, 3+ leukocyte esterase, urine bacteria 4+, urine wbc's greater than 100. (3) Acute heart failure: Code(s): I50.9 - Heart failure, unspecified Status: Acute Assessment and Plan: -her BNP is elevated to 3790 no previous levels for comparison -however she does not appear to have any fluid overload on chest x-ray. Chest x-ray was read as no acute cardiopulmonary disease. -her Bnp could be elevated from her hypertension. (4) Hypertension: Qualifiers: Hypertension type: primary hypertension Qualified Code(s): I10 - Essential (primary) hypertension Code(s): I10 - Essential (primary) hypertension Status: Chronic Assessment and Plan: -continue with amlodipine -continue with metoprolol and losartan as blood pressure allows. (5) Glaucoma: Code(s): H40.9 - Unspecified glaucoma Status: Acute Assessment and Plan: -continue with home eye drops. 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 Patient uses a walker most the time. -continue with rosuvastatin -she has chronic pain to her left upper arm and left lower extremity. Continue with her home medication of tramadol. (7) Atrial fibrillation: Qualifiers: Atrial fibrillation type: paroxysmal Qualified Code(s): I48.0 - Paroxysmal atrial fibrillation Code(s): I48.91 - Unspecified atrial fibrillation Status: Chronic Assessment and Plan: -rate control. -continue with Eliquis and metoprolol. (8) Hypokalemia: Code(s): E87.6 - Hypokalemia Status: Acute Assessment and Plan: --patient's potassium is 3.3 please replete patient with supplemented supplement as necessary. -she was given a dose of Lasix in the emergency room. Quality VTE Prophylaxis VTE prophylaxis: pharmacologic ordered
--- NOTE | 2024-11-25 02:51 | ADMGEN ---
This patient, Domenica Anthony, was admitted to IMU Room 210-01 at 0245. Patient/family oriented to hospital policies and general routines including ID bracelet, bed and alarms, visiting hours, pain management, procedures, bathroom and other care routines, personal items, smoking policy, room service/diet, and visiting hours. Information on how to activate the Rapid Response Team has been discussed. Patient/Family are encouraged to report perceived risks to care and to ask questions if they do not understand what they are told or what they should do.
[2024-11-25 06:35] LABS: Hematocrit 43.5 % (37.0-47.0); Hemoglobin 14.2 g/dL (12.0-15.0); Mean Corpuscular HGB Conc 32.6 g/dl (32-36); Mean Corpuscular Hemoglobin 29.2 pg (26-34); Mean Corpuscular Volume 89.5 fl (80-100); Platelet Count Result 208 k/mm3 (150-375); Red Blood Count 4.86 M/mm3 (4.2-5.4); White Blood Count 7.5 K/mm3 (4.5-10.0)
[2024-11-25] MEDS: traMADol HCL (*CRX) 25 MG TABLET PO ×2 (06:39→20:42)
[2024-11-25 07:01] LABS: Anion Gap 7 mmol/L (4-12); Blood Urea Nitrogen 17 mg/dL (7-17); Calcium 9.1 mg/dL (8.4-10.2); Carbon Dioxide 27 mmol/L (22-30); Chloride 104 mmol/L (98-107); Estimated CRCL calculation 38 ml/min; Estimated Glomerular Filt Rate > 60; Glucose 84 mg/dL (65-110); Magnesium 2.3 mg/dL (1.6-2.3); Potassium 3.2 mmol/L (3.4-5.0); Sodium 138 mmol/L (137-145)
[2024-11-25 07:14] LABS: Troponin I < 0.012 ng/mL (0.000-0.034)
[2024-11-25 07:31] LABS: Thyroid Stimulating Hormone Reflex 4.680 uIU/mL (0.465-4.68)
--- NOTE | 2024-11-25 08:13 | P.CONCA_ITS ---
Assessment and Plan Assessment and plan (1) Acute on chronic diastolic heart failure: Code(s): I50.33 - Acute on chronic diastolic (congestive) heart failure Status: Acute (2) Chest pain: Code(s): R07.9 - Chest pain, unspecified Status: Acute (3) Hypokalemia: Code(s): E87.6 - Hypokalemia Status: Acute (4) HUDSON (obstructive sleep apnea): Code(s): G47.33 - Obstructive sleep apnea (adult) (pediatric) Status: Acute (5) CVA (cerebral vascular accident): Qualifiers: CVA mechanism: unspecified Qualified Code(s): I63.9 - Cerebral infarction, unspecified Code(s): I63.9 - Cerebral infarction, unspecified Status: Acute (6) Atrial fibrillation: Qualifiers: Atrial fibrillation type: paroxysmal Qualified Code(s): I48.0 - Paroxysmal atrial fibrillation Code(s): I48.91 - Unspecified atrial fibrillation Status: Chronic Plan Impression: 1. Patient with bilateral shoulder pain and intermittent chest pain without any suggestion for ischemic EKG changes or elevated cardiac enzymes. 2. Acute on chronic diastolic heart failure as demonstrated by elevated BNP. Patient has history of hypertension and likely hypertensive heart disease with diastolic dysfunction. Echocardiogram is pending. 3. History of chronic atrial fibrillation with a controlled rate. Patient is on oral anticoagulation. 4. History of hypertension with hypertensive heart disease. Blood pressure is controlled. 5. History of obstructive sleep apnea. 6. History of stroke with residual left sided weakness. Recommendation: #. Chest x-ray does not show any impressive cardiopulmonary abnormality. Patient likely has chronically elevated the BNP prompt diastolic dysfunction. Will check with echocardiogram to evaluate for LV systolic function and wall motion abnormalities. #. Blood pressure is 143/77 today with heart rate of 68 per minute. All medications reviewed. Patient is on amlodipine, losartan 50 mg, metoprolol succinate 50 mg daily and nitroglycerin as needed. Continue present medical management and monitor blood pressure while in the hospital. #. Known history of atrial fibrillation is on oral anticoagulation with apixaban 5 mg b.i.d.. Echocardiogram is pending. Continue oral anticoagulation #. Overall plan of treatment will be conservative for this patient with limited code. #. Add the Imdur 30 mg p.o. daily for this patient. Continue rosuvastatin 10 mg daily for hyperlipidemia. Thank you again for allowing us to participate in care this patient. History of Present Illness History of Present Illness Consult date/time: 11/25/24 08:13 Requesting physician: Paula Short APRN Consult reason: chest pain and atrial fibrillation Reason For Visit: New onset heart failure;UTI;CP episode w/heart sco Narrative: 89-year-old female admitted via emergency room on 11/24/2024 with complaints of chest pain. [facility] with [facility] of stroke and residual left-sided weakness. Patient also has history of hypertension and atrial fibrillation and is on oral anticoagulation. Patient was sent to the emergency room with complaints of bilateral shoulder pain without any injury or trauma. Patient has some swelling on the left leg. No complaints of shortness of breath fever or chills. No complaints of abdominal pain nausea vomiting or diarrhea. No complaints of urinary symptoms. Admitting blood pressure was 141/68 mm of mercury and heart rate was 87 per minute temperature was 99? and O2 saturation was 95%. Admitting laboratory data revealed WBC count 7.6, hemoglobin 14.1, platelets were normal. Sodium 136, potassium 3.3, BUN 21 and creatinine 0.7. Cardiac troponin was negative x3. LFTs were normal. Urinalysis was negative. ProBNP was 3790. Chest x-ray on 06/24/2024 revealed increasing retrocardiac opacity in the left lower lung zone. Right lung is clear. No pleural effusion. Cardiomegaly noted moderate to severe degenerative changes noted in the spine. Findings were suspicious for atelectasis or pneumonia. Subsequent repeat chest x-ray revealed no acute cardiopulmonary abnormalities. Patient was examined at the bedside. Patient appears to be comfortable without shortness of breath or chest pain or orthopnea. No significant leg edema noted. Patient states that she had moderate to severe left shoulder pain. Discussed with primary attending. Echo is being done at the bedside. Review of Systems 2 Review of Systems: Twelve point review of system was completed. Pertinent positive and negative findings per HPI. Constitutional positive weakness negative for weight loss, fever chills. Head and neck review of system is negative. Pulmonary system negative for shortness of breath cough or hemoptysis. Cardiovascular positive for intermittent chest pain, positive for left leg edema. Gastrointestinal system negative for bowel pain, nausea vomiting or diarrhea. Neurovascular system negative. Genitourinary system negative. 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, wheelchair Code Status: Modified code DNI Smoking status: Never smoker Alcohol intake: never Substance use: never Substance use type: does not use Do You Feel Safe in your Home?: Yes Lack of Transportation: No Lack of Food: Never True Current Housing: I Have Housing Concerned About Future Housing: No Difficulty Paying Gas/Electric Bills: No Difficulty Paying for Meds: No Currently Unemployed: No Education: Associate Degree Difficulty w/ Childcare or Family Care: No Living arrangements: alf Additional living arrangements comments: [facility] since 09/16/22; Previously Lived with her daughter Occupation/Education: retired Spiritual care concerns: No Agree to blood products: Yes Meds Home Medications and Allergies Home Medications ?Medication ?Instructions ?Recorded ?Confirmed ?Type amlodipine 5 mg tablet 5 mg PO DAILY 07/08/2211/25 History apixaban 2.5 mg tablet (Eliquis) 5 mg PO Q12H 07/08/22 11/25/24 History losartan 50 mg tablet 50 mg PO DAILY 07/08/22 1006/16 History metoprolol succinate 50 mg 50 mg PO DAILY 07/08/2206/16 History tablet,extended release 24 hr nitroglycerin 0.4 mg sublingual 0.4 mg sublingual Q5M PRN chest 07/08/22 11/25/24 History tablet pain timolol maleate 0.5 % eye drops 1 drp EACH EYE DAILY 0 07/08/22 11/25/24 History rosuvastatin 10 mg tablet 10 mg PO .qod #90 tabs 08/1711/25/24 Rx [facility] ea 01/18/23 11/25/24 Rx tramadol 50 mg tablet 50 mg PO Q12H PRN pain #14 t abs 06/24/24 11/25/24 Rx custom AFO shoe #1 ea 08/07/24 11/25/24 Rx doxepin 10 mg capsule 10 mg PO QHS #30 caps 11/25/24 Rx potassium chloride 10 mEq 10 meq PO BID #180 caps 05/1611/25/24 Rx capsule,extended release tramadol 50 mg tablet 25 mg (1/2 x 50 mg) PO Q6H P RN 11/24/24 11/25/24 Rx pain #15 tabs Allergies Allergy/AdvReac Type Severity Reaction Status Date / Time amoxicillin Allergy Intermediate Diarrhea Verified 11/10/24 08:21 meperidine Allergy Intermediate Nausea and Verified 11/10/24 08:21 Vomiting propoxyphene Allergy Intermediate Unknown Verified 11/10/24 08:21 Sulfa (Sulfonamide Allergy Intermediate Itching Verified 11/10/24 08:21 Antibiotics) atorvastatin AdvReac Severe Muscle Pain Verified 11/10/24 08:21 pravastatin AdvReac Severe Muscle Pain Verified 11/10/24 08:21 Vital Signs Vital Signs - 24 hr 11/24/24 18:38 11/24/24 20:45 11/24/24 20:45 Temperature 37.2 C Pulse Rate 87 77 Respiratory Rate 18 22 H Blood Pressure 141/68 H Pulse Oximetry 95 98 Oxygen Delivery Room Air Room Air 11/24/24 21:00 11/24/24 21:19 11/24/24 21:30 Temperature Pulse Rate 73 73 71 Respiratory Rate 28 H 12 18 Blood Pressure Pulse Oximetry 98 97 Oxygen Delivery 11/24/24 21:45 11/24/24 22:01 11/24/24 22:02 Temperature Pulse Rate 78 77 76 Respiratory Rate 21 H 17 23 H Blood Pressure 123/80 Pulse Oximetry 97 100 95 Oxygen Delivery 11/25/24 02:57 11/25/24 04:00 11/25/24 04:00 Temperature 36.4 C 36.4 C Pulse Rate 69 82 Respiratory Rate 16 16 Blood Pressure 150/79 H 148/66 H Pulse Oximetry 93 98 Oxygen Delivery Room Air 11/25/24 04:00 Temperature Pulse Rate 63 Respiratory Rate Blood Pressure Pulse Oximetry Oxygen Delivery Exam 2 Narrative: Patient was examined at the bedside. Patient is awake alert appears to be comfortable and good for her age. Oriented x3 point. No acute distress of orthopnea or chest pain Head and neck examination is unremarkable. Head is atraumatic. Well built and well nourished. ENT examination is negative. Neck is supple. There is no JVD or carotid bruit. Thyroid is not enlarged. Lungs are with decreased entry bilaterally. There is no wheezing or crepitation. Heart sounds reveal normal S1-S2. There is soft systolic murmur. There is no S3-S4 heard Abdomen is soft and nontender. There is no hepatosplenomegaly peripheral pulses present extremities revealed minimal leg edema. Neurological examination is intact. Skin is intact without any rashes bruises or ecchymosis. Results Labs and Meds 11/25/24 06:11 11/25/24 06:11 Lab results: Cardiac Enzymes 11/24/24 11/24/24 11/25/24 Range/Units 18:49 21:40 00:45 AST 32 (14-36) U/L Troponin I < 0.012 < 0.012 < 0.012 (0.000-0.034) ng/mL 11/25/24 11/25/24 Range/Units 06:11 06:11 AST (14-36) U/L Troponin I < 0.012 Cancelled (0.000-0.034) ng/mL Coagulation 11/24/24 Range/Units 18:49 PT 14.0 (11.1-14.7) Seconds APTT 32.6 (22.3-36.8) Seconds CBC 11/24/24 11/25/24 Range/Units 18:49 06:11 WBC 7.6 7.5 (4.5-10.0) K/mm3 RBC 4.84 4.86 (4.2-5.4) M/mm3 Hgb 14.1 14.2 (12.0-15.0) g/dL Hct 42.9 43.5 (37.0-47.0) % Plt Count 202 208 (150-375) k/mm3 Lymph # (Auto) 1.42 (0.9-3.2) K/mm3 [place] # (Auto) 0.9 H (0.1-0.6) K/mm3 Eos # (Auto) 0.1 (0-0.3) K/mm3 Baso # (Auto) 0.1 (0.0-0.1) K/mm3 Comprehensive Metabolic Panel 11/24/24 11/24/24 11/25/24 Range/Units 18:49 21:40 06:11 Sodium 136 L 138 (137-145) mmol/L Potassium 3.3 L 3.2 L (3.4-5.0) mmol/L Chloride 102 104 (98-107) mmol/L Carbon Dioxide 25 27 (22-30) mmol/L BUN 21 H 17 (7-17) mg/dL Creatinine 0.70 0.69 L (0.7-1.0) mg/dL Glucose 135 H 84 (65-110) mg/dL Calcium 9.4 9.1 (8.4-10.2) mg/dL Direct Bilirubin 0.0 (0-0.3) mg/dL Indirect Bilirubin 1.6 H (0-1.1) mg/dL AST 32 (14-36) U/L ALT 24 (6-35) U/L Alkaline Phosphatase 70 (38-126) U/L Total Protein 7.7 (6.3-8.2) g/dL Albumin 4.4 (3.5-5.1) g/dL Intake and Output 11/24/24 11/25/24 11/25/24 23:59 07:59 15:59 Intake Total 50 150 Output Total 400 300 Balance -350 -150 Intake: IV 50 cefTRIAXone 1 gm In Sodium 50 Chloride 0.9% IV 50 ml @ 100 mls/hr IVPB ONCE STA Rx#: [id number] Oral 150 Output: Urine 400 300 Patient Weight 11/25/24 23:59 Weight 60.4 kg
[2024-11-25] MEDS: ISOSORBIDE MONONITRATE 30 MG TAB.ER.24H PO (09:39)
[2024-11-25] MEDS: APIXABAN 2.5 MG TABLET 5 MG PO ×2 (09:40→20:41)
[2024-11-25] MEDS: LOSARTAN POTASSIUM 50 MG TABLET PO (09:41)
[2024-11-25] MEDS: METOPROLOL SUCCINATE EXT REL 50 MG TABCR PO (09:42)
[2024-11-25] MEDS: POTASSIUM CHLORIDE 10 MEQ ER TABLET PO ×2 (09:44→16:24)
[2024-11-25] MEDS: TIMOLOL MALEATE 0.5% OP SOLN 5 ML BOTTLE 1 DROP EACH EYE (09:45)
[2024-11-25] MEDS: PERFLUTREN LIPID MICROSPHERES 1.5 ML VIAL DILUTED TO 10 ML TOTAL VOLUME IV PUSH (10:34)
--- NOTE | 2024-11-25 10:34 | IVDEFINITY ---
Prior to administration of IV Definity the patient was educated on the risks and benefits of the imaging enhancing agent including potential adverse side effects. The patient verbalized understanding. Allergies were verified. No exclusion criteria were identified and at least one of the following inclusion criteria were met: 1) physician request, 2) patient technically difficult to image (per the [place] [employer] guidelines of two or more segments not discernable within the apical view), or 3) questionable left ventricular function. ?
--- NOTE | 2024-11-25 13:55 | P.PNIM_ITS ---
Progress Note: A&P Assessment and Plan (1) Chest pain: Code(s): R07.9 - Chest pain, unspecified Status: Acute Assessment and Plan: Patient complained of left shoulder pain Troponin negative 3 EKG showed t wave inversion in precordial leads ECHO showed EF 60-65%, and no regional wall motion abnormalities Cadiology following (2) UTI (urinary tract infection): Qualifiers: Urinary tract infection type: acute cystitis Hematuria presence: without hematuria Qualified Code(s): N30.00 - Acute cystitis without hematuria Code(s): N39.0 - Urinary tract infection, site not specified Status: Acute Assessment and Plan: -start the patient on Rocephin. Pending which blind and urine cultures. -urine is cloudy with positive nitrate, 3+ leukocyte esterase, urine bacteria 4+, urine wbc's greater than 100. (3) Acute heart failure: Code(s): I50.9 - Heart failure, unspecified Status: Acute Assessment and Plan: -her BNP is elevated to 3790 no previous levels for comparison -CXR no acute changes ECHO reviewed (4) Hypertension: Qualifiers: Hypertension type: primary hypertension Qualified Code(s): I10 - Essential (primary) hypertension Code(s): I10 - Essential (primary) hypertension Status: Chronic Assessment and Plan: -continue with amlodipine -continue with metoprolol and losartan as blood pressure allows. (5) Glaucoma: Code(s): H40.9 - Unspecified glaucoma Status: Acute Assessment and Plan: -continue with home eye drops. 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 Patient uses a walker most the time. -continue with rosuvastatin -she has chronic pain to her left upper arm and left lower extremity. Continue with her home medication of tramadol. (7) Atrial fibrillation: Qualifiers: Atrial fibrillation type: paroxysmal Qualified Code(s): I48.0 - Paroxysmal atrial fibrillation Code(s): I48.91 - Unspecified atrial fibrillation Status: Chronic Assessment and Plan: -rate control. -continue with Eliquis and metoprolol. (8) Hypokalemia: Code(s): E87.6 - Hypokalemia Status: Acute Assessment and Plan: --patient's potassium is 3.3 please replete patient was supplemented supplement as necessary. -she was given a dose of Lasix in the emergency room. Plan Awaiting PT/OT for discharge disposition DVT prophylaxis on Eliquis Subjective Date/time seen: 11/25/24 13:55 Interval history: Comfortable at bedside and now complained of left shoulder pain Review of Systems ENT: Reports Normal hearing present Neurologic: Reports Normal hearing present Exam Const: General: cooperative, healthy appearing, comfortable, no acute distress, well developed, awake, Physically active, average body habitus and well nourished Nutritional Appearance: average body habitus and well nourished Orientation/consciousness: oriented to person, oriented to place, oriented to time and patient oriented x3 HENMT: Head: normal to inspection, No palpable skull fracture present, normo cephalic and atraumatic Eyes: General: appearance normal, both eyes and all related structures Alignment and Position: alignment normal Periorbital: periorbital findings normal Eyelids: eyelids normal Pupils: Equal, round and reactive pupils present Neck: Neck: normal visual inspection, full ROM, no lymphadenopathy, trachea midline and supple Chest: Chest palpation & inspection: normal inspection of the chest Resp: Effort & Inspection: normal respiratory effort Auscultation: clear to auscultation bilaterally Cardio: Palpation: normal PMI Rate: regular rate Rhythm: abnormal rhythm irregularly irregular Heart sounds: S1 normal heart sound present and S2 normal heart sound present Peripheral pulses: Peripheral pulses 2+ throughout GI: Inspection: normal to inspection Auscultation: normal bowel sounds Rectal Exam: deferred : General: Yes no CVA tenderness Back/Spine/Pelvis: Back: no CVA tenderness Cervical Spine: cervical ROM normal Thoracic/Lumbar Spine: thoracic and lumbar spine normal to inspection Pelvis: no pain with anterior-posterior compression Skin: General skin exam: normal color Lesions: no lesions Rashes: no rashes Trauma: no lacerations or abrasions Wounds: no wounds Hair: normal Nails: normal Neuro: General: oriented to person, oriented to place, oriented to time and patient oriented x3 Cranial nerves: Yes Equal, round and reactive pupils present and Yes Normal hearing present Cognition (Neuro): normal cognition Speech: normal speech Gait exam (Neuro): Normal gait present Motor exam (neuro): 5/5 motor strength present throughout Sensory Exam: normal sensation Extrem: General: normal to inspection Right upper extremity: normal to inspection and shoulder/upper arm Left upper extremity: normal to inspection and shoulder/upper arm Right lower extremity: normal to inspection Left lower extremity: normal to inspection Psych: Appearance: grossly normal Mental Status: mental status grossly normal Speech and movement: Normal speech and movement present Affect: normal affect Attitude: cooperative Thought process: Normal thought process present Insight: Good insight present (Psych) Judgement: Good judgement present (Psych) Objective Data Vital Signs Vital Signs: Vital Signs - 24 hr 11/24/24 18:38 11/24/24 20:45 11/24/24 20:45 Temperature 99 F Pulse Rate 87 77 Respiratory Rate 18 22 H Blood Pressure 141/68 H Pulse Oximetry 95 98 Oxygen Delivery Room Air Room Air 11/24/24 21:00 11/24/24 21:19 11/24/24 21:30 Temperature Pulse Rate 73 73 71 Respiratory Rate 28 H 12 18 Blood Pressure Pulse Oximetry 98 97 Oxygen Delivery 11/24/24 21:45 11/24/24 22:01 11/24/24 22:02 Temperature Pulse Rate 78 77 76 Respiratory Rate 21 H 17 23 H Blood Pressure 123/80 Pulse Oximetry 97 100 95 Oxygen Delivery 11/25/24 02:57 11/25/24 04:00 11/25/24 04:00 Temperature 97.6 F 97.6 F Pulse Rate 69 82 Respiratory Rate 16 16 Blood Pressure 150/79 H 148/66 H Pulse Oximetry 93 98 Oxygen Delivery Room Air 11/25/24 04:00 11/25/24 06:00 11/25/24 08:00 Temperature Pulse Rate 63 59 L 68 Respiratory Rate Blood Pressure Pulse Oximetry Oxygen Delivery 11/25/24 08:12 11/25/24 09:42 11/25/24 10:00 Temperature 97.5 F L Pulse Rate 68 68 69 Respiratory Rate 12 Blood Pressure 143/77 H Pulse Oximetry 98 Oxygen Delivery 11/25/24 12:00 11/25/24 12:11 Temperature 98.6 F Pulse Rate 73 74 Respiratory Rate 12 Blood Pressure 114/67 Pulse Oximetry 97 Oxygen Delivery Intake/Output Intake/Output: Intake & Output 11/22/24 11/23/24 11/24/24 11/25/24 23:59 23:59 23:59 23:59 Intake Total 50 450 Output Total 400 300 Balance -350 150 Meds/Results Medications: Active Medications Generic Name Dose Route Start Last Admin Trade Name Freq PRN Reason Stop Dose Admin Acetaminophen 650 mg 11/24/24 23:26 Acetaminophen 325 Mg Tablet PO Q4H PRN Mild Pain (1-3) or Fever Amlodipine Besylate 5 mg 11/25/24 09:00 11/25/24 09:39 Amlodipine Besylate 5 Mg Tablet PO 5 mg DAILY PAMELA Administration Apixaban 5 mg 11/25/24 09:00 11/25/24 09:40 Apixaban 2.5 Mg Tablet PO 5 mg Q12HR PAMELA Administration Doxepin HCl 10 mg 11/25/24 21:00 Doxepin Hcl 10 Mg Capsule PO QHS [facility] Isosorbide Mononitrate 30 mg 11/25/24 09:00 11/25/24 09:39 Isosorbide Mononitrate 30 Mg Tab.Er.24h PO 30 mg QAM PAMELA Administration Losartan Potassium 50 mg 11/25/24 09:00 11/25/24 09:41 Losartan Potassium 50 Mg Tablet PO 50 mg DAILY [facility] Administration Metoprolol Succinate 50 mg 11/25/24 09:00 11/25/24 09:42 Metoprolol Succinate Ext Rel 50 Mg Tabcr PO 50 mg DAILY [facility] Administration Nitroglycerin 0.4 mg 11/25/24 06:06 Nitroglycerin Sl 0.4 Mg Tablet SUBLINGUAL Q5M PRN Chest Pain Ondansetron HCl 4 mg 11/24/24 23:26 Ondansetron Inj 4 Mg/2 Ml Vial IV PUSH Q4H PRN Nausea Potassium Chloride 10 meq 11/25/24 08:00 11/25/24 09:44 Potassium Chloride 10 Meq Er Tablet PO 10 meq BIDWM PAMELA Administration Rosuvastatin Calcium 10 mg 11/27/24 09:00 Rosuvastatin 10 Mg Tablet PO [id number] [facility] Timolol Maleate 1 drop 11/25/24 09:00 11/25/24 09:45 Timolol Maleate 0.5% Op Soln 5 Ml Bottle EACH EYE 1 drop DAILY PAMELA Administration Tramadol HCl 25 mg 11/25/24 03:47 11/25/24 06:39 Tramadol Hcl (*Crx) 25 Mg Tablet PO 25 mg Q6H PRN Administration Pain Rated 4-6 Radiology Results: ITS Impressions Chest X-Ray 11/24/24 19:14 IMPRESSION: 1. No acute cardiopulmonary findings. Labs Labs: Laboratory Results - last 24 hr 11/24/24 11/24/24 11/24/24 18:48 18:49 21:40 WBC 7.6 RBC 4.84 Hgb 14.1 Hct 42.9 MCV 88.6 MCH 29.1 MCHC 32.9 RDW 13.5 Plt Count 202 MPV 9.4 Immature Gran % (Auto) 0.3 Neut % (Auto) 66.7 Lymph % (Auto) 18.8 [place] % (Auto) 11.6 H Eos % (Auto) 1.7 Baso % (Auto) 0.9 Lymph # (Auto) 1.42 [place] # (Auto) 0.9 H Eos # (Auto) 0.1 Baso # (Auto) 0.1 Abs Immat Gran (auto) 0.02 Absolute Neuts (auto) 5.0 Absolute Nucleated RBC 0.000 Nucleated RBC % 0.0 PT 14.0 INR 1.1 APTT 32.6 D-Dimer < 0.27 Sodium 136 L Potassium 3.3 L Chloride 102 Carbon Dioxide 25 Anion Gap 9 BUN 21 H Creatinine 0.70 Estim Creat Clear Calc 37 Estimated GFR > 60 Glucose 135 H Calcium 9.4 Magnesium 2.0 Total Bilirubin 2.0 H Direct Bilirubin 0.0 Indirect Bilirubin 1.6 H AST 32 ALT 24 Alkaline Phosphatase 70 Troponin I < 0.012 < 0.012 NT-Pro-B Natriuret Pep 3790 H Total Protein 7.7 Albumin 4.4 Lipase 65 TSH (Reflex) Urine Color Urine Appearance Urine pH Ur Specific [place] Urine Protein Urine Glucose (UA) Urine Ketones Ur Blood (Man) Urine Nitrate Urine Bilirubin Urine Urobilinogen Leukocyte Esterase Rfl Urine RBC Urine WBC Ur Squamous Epith Cells Urine Bacteria Urine Casts Influenza A (RT-PCR) Negative Influenza B (RT-PCR) Negative RSV (RT-PCR) Negative SARS-CoV-2 RNA (RT-PCR) Negative 11/24/24 11/25/24 11/25/24 22:04 00:45 06:11 WBC 7.5 RBC 4.86 Hgb 14.2 Hct 43.5 MCV 89.5 MCH 29.2 MCHC 32.6 RDW 13.5 Plt Count 208 MPV 9.7 Immature Gran % (Auto) Neut % (Auto) Lymph % (Auto) [place] % (Auto) Eos % (Auto) Baso % (Auto) Lymph # (Auto) [place] # (Auto) Eos # (Auto) Baso # (Auto) Abs Immat Gran (auto) Absolute Neuts (auto) Absolute Nucleated RBC Nucleated RBC % PT INR APTT D-Dimer Sodium 138 Potassium 3.2 L Chloride 104 Carbon Dioxide 27 Anion Gap 7 BUN 17 Creatinine 0.69 L Estim Creat Clear Calc 38 Estimated GFR > 60 Glucose 84 Calcium 9.1 Magnesium 2.3 Total Bilirubin Direct Bilirubin Indirect Bilirubin AST ALT Alkaline Phosphatase Troponin I < 0.012 < 0.012 NT-Pro-B Natriuret Pep Total Protein Albumin Lipase TSH (Reflex) Urine Color Yellow Urine Appearance Cloudy H Urine pH 7.0 Ur Specific [place] 1.007 Urine Protein Negative Urine Glucose (UA) Negative Urine Ketones Negative Ur Blood (Man) 1+ H Urine Nitrate Positive H Urine Bilirubin Negative Urine Urobilinogen 0.2 Leukocyte Esterase Rfl 3+ H Urine RBC 0-2 Urine WBC >100 H Ur Squamous Epith Cells None seen Urine Bacteria 4+ H Urine Casts 0-2 Influenza A (RT-PCR) Influenza B (RT-PCR) RSV (RT-PCR) SARS-CoV-2 RNA (RT-PCR) 11/25/24 06:11 WBC RBC Hgb Hct MCV MCH MCHC RDW Plt Count MPV Immature Gran % (Auto) Neut % (Auto) Lymph % (Auto) [place] % (Auto) Eos % (Auto) Baso % (Auto) Lymph # (Auto) [place] # (Auto) Eos # (Auto) Baso # (Auto) Abs Immat Gran (auto) Absolute Neuts (auto) Absolute Nucleated RBC Nucleated RBC % PT INR APTT D-Dimer Sodium Potassium Chloride Carbon Dioxide Anion Gap BUN Creatinine Estim Creat Clear Calc Estimated GFR Glucose Calcium Magnesium Total Bilirubin Direct Bilirubin Indirect Bilirubin AST ALT Alkaline Phosphatase Troponin I Cancelled NT-Pro-B Natriuret Pep Total Protein Albumin Lipase TSH (Reflex) 4.680 Urine Color Urine Appearance Urine pH Ur Specific [place] Urine Protein Urine Glucose (UA) Urine Ketones Ur Blood (Man) Urine Nitrate Urine Bilirubin Urine Urobilinogen Leukocyte Esterase Rfl Urine RBC Urine WBC Ur Squamous Epith Cells Urine Bacteria Urine Casts Influenza A (RT-PCR) Influenza B (RT-PCR) RSV (RT-PCR) SARS-CoV-2 RNA (RT-PCR)
[2024-11-25] MEDS: CIPROFLOXACIN 250 MG TABLET PO ×2 (14:12→20:41)
--- NOTE | 2024-11-25 16:36 | PC.NURSE ---
On 11/25/24, the student, Joanne Meza and Joann Cordero, provided care and completed [facility] documentation on this patient. I have reviewed the student's documentation and agree with the findings. Chucho, MSN, RN
[2024-11-25] MEDS: DOXEPIN HCL 10 MG CAPSULE PO (20:41)
[2024-11-25 23:20] LABS: Free T4 Free Thyroxine Reflex 1.31 ng/dL (0.78-2.19)
[2024-11-26] VITALS (10 sets, daily range): BP systolic 120–128; BP diastolic 52–70; PULSE 61–79; RESP 14–16; TEMP 36.3–36.8; O2SAT 98–100
[2024-11-26 01:37] LABS: Total Triiodothyronine (T3) 1.02 NG/ML (0.82-1.58)
[2024-11-26 04:33] LABS: Hematocrit 40.7 % (37.0-47.0); Hemoglobin 13.3 g/dL (12.0-15.0); Immature Granulocyte Percent A 0.3 % (0-0.5); Lymphocytes Absolute Auto 2.64 K/mm3 (0.9-3.2); Mean Corpuscular HGB Conc 32.7 g/dl (32-36); Mean Corpuscular Hemoglobin 29.4 pg (26-34); Mean Corpuscular Volume 89.8 fl (80-100); Nucleated Red Blood Cells Absolute Auto 0.000 K/mm3 (0.0-0.012); Nucleated Red Blood Cells Perc 0.0 % (0.0-0.2); Platelet Count Result 202 k/mm3 (150-375); Red Blood Count 4.53 M/mm3 (4.2-5.4); White Blood Count 7.9 K/mm3 (4.5-10.0)
[2024-11-26 05:22] LABS: Alanine Aminotransferase 18 U/L (6-35); Albumin Level 4.0 g/dL (3.5-5.1); Alkaline Phosphatase 72 U/L (38-126); Anion Gap 5 mmol/L (4-12); Aspartate Amino Transferase 28 U/L (14-36); Bilirubin,Total 1.9 mg/dL (0.2-1.3); Blood Urea Nitrogen 25 mg/dL (7-17); Calcium 9.2 mg/dL (8.4-10.2); Carbon Dioxide 30 mmol/L (22-30); Chloride 100 mmol/L (98-107); Estimated CRCL calculation 32 ml/min; Estimated Glomerular Filt Rate > 60; Glucose 86 mg/dL (65-110); Magnesium 2.1 mg/dL (1.6-2.3); Potassium 3.7 mmol/L (3.4-5.0); Sodium 135 mmol/L (137-145); Total Protein 7.1 g/dL (6.3-8.2)
[2024-11-26] MEDS: METOPROLOL SUCCINATE EXT REL 50 MG TABCR PO (08:58)
[2024-11-26] MEDS: CIPROFLOXACIN 250 MG TABLET PO (08:58)
[2024-11-26] MEDS: POTASSIUM CHLORIDE 10 MEQ ER TABLET PO (08:58)
[2024-11-26] MEDS: APIXABAN 2.5 MG TABLET 5 MG PO (08:58)
[2024-11-26] MEDS: ISOSORBIDE MONONITRATE 30 MG TAB.ER.24H PO (08:58)
[2024-11-26] MEDS: LOSARTAN POTASSIUM 50 MG TABLET PO (08:58)
[2024-11-26] MEDS: TIMOLOL MALEATE 0.5% OP SOLN 5 ML BOTTLE 1 DROP EACH EYE (08:59)
--- NOTE | 2024-11-26 11:09 | P.PNCA_ITS ---
Progress Note: A&P Assessment and Plan (1) Acute on chronic diastolic heart failure: Code(s): I50.33 - Acute on chronic diastolic (congestive) heart failure Status: Acute (2) Chest pain: Code(s): R07.9 - Chest pain, unspecified Status: Acute (3) [place] (obstructive sleep apnea): Code(s): G47.33 - Obstructive sleep apnea (adult) (pediatric) Status: Acute (4) CVA (cerebral vascular accident): Qualifiers: CVA mechanism: unspecified Qualified Code(s): I63.9 - Cerebral infarction, unspecified Code(s): I63.9 - Cerebral infarction, unspecified Status: Acute (5) Atrial fibrillation: Qualifiers: Atrial fibrillation type: paroxysmal Qualified Code(s): I48.0 - Paroxysmal atrial fibrillation Code(s): I48.91 - Unspecified atrial fibrillation Status: Chronic (6) Hypokalemia: Code(s): E87.6 - Hypokalemia Status: Acute Plan Impression: 1. Patient with bilateral shoulder pain and intermittent chest pain without any suggestion for ischemic EKG changes or elevated cardiac enzymes. 2. Acute on chronic diastolic heart failure as demonstrated by elevated BNP. Patient has history of hypertension and likely hypertensive heart disease with diastolic dysfunction. Echocardiogram is pending. 3. History of chronic atrial fibrillation with a controlled rate. Patient is on oral anticoagulation. 4. History of hypertension with hypertensive heart disease. Blood pressure is controlled. 5. History of obstructive sleep apnea. 6. History of stroke with residual left sided weakness. Recommendation: #. Chest x-ray does not show any impressive cardiopulmonary abnormality. Patient likely has chronically elevated the BNP prompt diastolic dysfunction. Echocardiogram completed on 11/25/2024 reveals normal left ventricular size and systolic function estimated at 60-65% with mild left ventricular hypertrophy. Patient has diastolic dysfunction with moderately enlarged left atrium and right atrium. There is moderate mitral regurgitation and [id number] tricuspid regurgitation. #. Blood pressure is today with heart rate of 70 per minute. All medications reviewed. Patient is on amlodipine, losartan 50 mg, metoprolol succinate 50 mg daily and nitroglycerin as needed. Continue present medical management and monitor blood pressure while in the hospital. #. Known history of atrial fibrillation is on oral anticoagulation with apixaban 5 mg b.i.d.. Continue oral anticoagulation #. Overall plan of treatment will be conservative for this patient with limited code. #. Add the Imdur 30 mg p.o. daily for this patient. Continue rosuvastatin 10 mg daily for hyperlipidemia. Overall patient is stable without any shortness of breath or chest pain. Primarily she had left shoulder pain and not necessarily chest pain without any acute myocardial ischemia or infarction. Patient appears clinically stable and okay to discharge patient back to half-way today. Discussed with primary attending Dr. FREIRE. Subjective Date/time seen: 11/26/24 11:09 Interval history: Review of HPI: 89-year-old female admitted via emergency room on 11/24/2024 with complaints of chest pain. [facility] with history of stroke and residual left-sided weakness. Patient also has history of hypertension and atrial fibrillation and is on oral anticoagulation. Patient was sent to the emergency room with complaints of bilateral shoulder pain without any injury or trauma. Patient has some swelling on the left leg. No complaints of shortness of breath fever or chills. No complaints of abdominal pain nausea vomiting or diarrhea. No complaints of urinary symptoms. Admitting blood pressure was 141/68 mm of mercury and heart rate was 87 per minute temperature was 99? and O2 saturation was 95%. Admitting laboratory data revealed WBC count 7.6, hemoglobin 14.1, platelets were normal. Sodium 136, potassium 3.3, BUN 21 and creatinine 0.7. Cardiac troponin was negative x3. LFTs were normal. Urinalysis was negative. ProBNP was 3790. Chest x-ray on 06/24/2024 revealed increasing retrocardiac opacity in the left lower lung zone. Right lung is clear. No pleural effusion. Cardiomegaly noted moderate to severe degenerative changes noted in the spine. Findings were suspicious for atelectasis or pneumonia. Subsequent repeat chest x-ray revealed no acute cardiopulmonary abnormalities. Subjective: Patient was examined at the bedside. Patient is awake alert and appears comfortable without shortness of breath, chest pain orthopnea. No significant leg edema noted. Vital signs are stable. Review of Systems Review of Systems: Twelve point review of system was completed. Pertinent positive and negative findings per HPI. Exam Narrative: Patient was examined at the bedside. Patient is awake alert appears to be comfortable and good for her age. Oriented x3 point. No acute distress of orthopnea or chest pain Head and neck examination is unremarkable. Head is atraumatic. Well built and well nourished. ENT examination is negative. Neck is supple. There is no JVD or carotid bruit. Thyroid is not enlarged. Lungs are with decreased entry bilaterally. There is no wheezing or crepitation. Heart sounds reveal normal S1-S2. There is soft systolic murmur. There is no S3-S4 heard Abdomen is soft and nontender. There is no hepatosplenomegaly peripheral pulses present extremities revealed minimal leg edema. Neurological examination is intact. Skin is intact without any rashes bruises or ecchymosis. Objective Data Vital Signs Vital Signs: Vital Signs - 24 hr 11/25/24 12:00 11/25/24 12:11 11/25/24 13:03 Temperature 37.0 C Pulse Rate 73 74 Respiratory Rate 12 Blood Pressure 114/67 Pulse Oximetry 97 Oxygen Delivery Room Air 11/25/24 14:00 11/25/24 16:00 11/25/24 16:34 Temperature 36.7 C Pulse Rate 71 73 76 Respiratory Rate 14 Blood Pressure 103/66 Pulse Oximetry 97 Oxygen Delivery 11/25/24 18:00 11/25/24 19:59 11/25/24 20:00 Temperature 36.5 C Pulse Rate 73 72 73 Respiratory Rate 16 Blood Pressure 115/75 Pulse Oximetry 97 Oxygen Delivery 11/25/24 20:40 11/25/24 22:00 11/26/24 00:00 Temperature 36.8 C Pulse Rate 73 79 Respiratory Rate 16 Blood Pressure 127/57 L Pulse Oximetry 98 Oxygen Delivery Room Air 11/26/24 00:00 11/26/24 00:15 11/26/24 02:00 Temperature Pulse Rate 70 61 Respiratory Rate Blood Pressure Pulse Oximetry Oxygen Delivery Room Air 11/26/24 03:47 11/26/24 04:00 11/26/24 04:10 Temperature 36.8 C Pulse Rate 67 62 Respiratory Rate 16 Blood Pressure 120/67 Pulse Oximetry 100 Oxygen Delivery Room Air 11/26/24 06:00 11/26/24 08:00 11/26/24 08:00 Temperature 36.3 C L Pulse Rate 62 61 74 Respiratory Rate 16 Blood Pressure 123/70 Pulse Oximetry 99 99 Oxygen Delivery Room Air 11/26/24 08:00 11/26/24 08:58 11/26/24 10:00 Temperature Pulse Rate 77 74 62 Respiratory Rate Blood Pressure Pulse Oximetry Oxygen Delivery Intake/Output Intake/Output: Intake & Output 11/23/24 11/24/24 11/25/24 11/26/24 23:59 23:59 23:59 23:59 Intake Total 50 930 440 Output Total 400 600 450 Balance -350 330 -10 Meds/Results Medications: Active Medications Generic Name Dose Route Start Last Admin Trade Name Freq PRN Reason Stop Dose Admin Acetaminophen 650 mg 11/24/24 23:26 Acetaminophen 325 Mg Tablet PO Q4H PRN Mild Pain (1-3) or Fever Amlodipine Besylate 5 mg 11/25/24 09:00 11/26/24 08:58 Amlodipine Besylate 5 Mg Tablet PO 5 mg DAILY PAMELA Administration Apixaban 5 mg 11/25/24 09:00 11/26/24 08:58 Apixaban 2.5 Mg Tablet PO 5 mg Q12HR PAMELA Administration Ciprofloxacin 250 mg 11/25/24 14:00 11/26/24 08:58 Ciprofloxacin 250 Mg Tablet PO 250 mg Q12HR PAMELA Administration Doxepin HCl 10 mg 11/25/24 21:00 11/25/24 20:41 Doxepin Hcl 10 Mg Capsule PO 10 mg QHS PAMELA Administration Isosorbide Mononitrate 30 mg 11/25/24 09:00 11/26/24 08:58 Isosorbide Mononitrate 30 Mg Tab.Er.24h PO 30 mg QAM PAMELA Administration Losartan Potassium 50 mg 11/25/24 09:00 11/26/24 08:58 Losartan Potassium 50 Mg Tablet PO 50 mg DAILY PAMELA Administration Metoprolol Succinate 50 mg 11/25/24 09:00 11/26/24 08:58 Metoprolol Succinate Ext Rel 50 Mg Tabcr PO 50 mg DAILY [facility] Administration Nitroglycerin 0.4 mg 11/25/24 06:06 Nitroglycerin Sl 0.4 Mg Tablet SUBLINGUAL Q5M PRN Chest Pain Ondansetron HCl 4 mg 11/24/24 23:26 Ondansetron Inj 4 Mg/2 Ml Vial IV PUSH Q4H PRN Nausea Potassium Chloride 10 meq 11/25/24 08:00 11/26/24 08:58 Potassium Chloride 10 Meq Er Tablet PO 10 meq BIDWM PAMELA Administration Rosuvastatin Calcium 10 mg 11/27/24 09:00 Rosuvastatin 10 Mg Tablet PO [id number] [facility] Timolol Maleate 1 drop 11/25/24 09:00 11/26/24 08:59 Timolol Maleate 0.5% Op Soln 5 Ml Bottle EACH EYE 1 drop DAILY PAMELA Administration Tramadol HCl 25 mg 11/25/24 03:47 11/25/24 20:42 Tramadol Hcl (*Crx) 25 Mg Tablet PO 25 mg Q6H PRN Administration Pain Rated 4-6 Radiology Results: ITS Impressions Chest X-Ray 11/24/24 19:14 IMPRESSION: 1. No acute cardiopulmonary findings. Labs Labs: Laboratory Results - last 24 hr 11/25/24 11/26/24 06:11 03:49 WBC 7.9 RBC 4.53 Hgb 13.3 Hct 40.7 MCV 89.8 MCH 29.4 MCHC 32.7 RDW 13.6 Plt Count 202 MPV 9.9 Immature Gran % (Auto) 0.3 Neut % (Auto) 47.7 Lymph % (Auto) 33.6 [place] % (Auto) 12.7 H Eos % (Auto) 4.6 H Baso % (Auto) 1.1 Lymph # (Auto) 2.64 [place] # (Auto) 1.0 H Eos # (Auto) 0.4 H Baso # (Auto) 0.1 Abs Immat Gran (auto) 0.02 Absolute Neuts (auto) 3.8 Absolute Nucleated RBC 0.000 Nucleated RBC % 0.0 Sodium 135 L Potassium 3.7 Chloride 100 Carbon Dioxide 30 Anion Gap 5 BUN 25 H Creatinine 0.83 Estim Creat Clear Calc 32 Estimated GFR > 60 Glucose 86 Calcium 9.2 Magnesium 2.1 Total Bilirubin 1.9 H AST 28 ALT 18 Alkaline Phosphatase 72 Total Protein 7.1 Albumin 4.0 Free T4 1.31 Total T3 1.02
--- NOTE | 2024-11-26 12:17 | PM.DS ---
DS: Admitting Diagnosis Discharge Date 11/26/24 Admitting Diagnosis Chest pain DS: Discharge Diagnosis Discharge Diagnosis (1) Chest pain: Code(s): R07.9 - Chest pain, unspecified Status: Acute DS: Summary Hospital Course Hospital Course: HPI per admitting provider: This is a 89-year-old female patient who resides at the [facility]. 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 She also has a history of atrial fibrillation which is rate controlled and she is on anticoagulation. She denies any fever chills or any cough. She is having bilateral shoulder pain without any injury or trauma. She also stated that she has some edema to left lower extremity which she has had since her stroke. Her sodium was slightly low at 136 with potassium 3.3. Glucose is 135. Magnesium is 2.0 which is normal. Troponin x3 are negative. BNP is 3790. Urinalysis 1+ urine and positive nitrates. She has 3+ leukocytes with greater than 100 wbc's in her urine. She has 4+ urine bacteria. However the patient denies any urinary symptoms. Viral serology are negative. Chest x-ray was read as no acute cardiopulmonary findings. The patient was given aspirin, potassium, Tylenol, Rocephin, Lasix, nitro, [place], and Zofran. Patien was amagned for chest pain, however on further eval, patient noted it was left shoulder pain, EHCO showed EF 60-65% with diastololic dysfunction. no regional wall motion abnormalities. Cardiology was consulted and evaluated patient. I discussed with Dr Fuller and he recommended adding Isosorbide Mononitrate and no further workup needed Patient remained stable and ambulated with walker which is her baseline. Today discharged back to facility whee she comes from. F/u with PCP in 3-5 days F/u with Cardiology as instructed Time Spent with Patient Time attestation: Total time spent providing and/or coordinating discharge services: DS: Data Data Completed and Pending Labs on day of discharge: Labs from last 24 hours 11/26/24 11/25/24 03:49 06:11 WBC 7.9 RBC 4.53 Hgb 13.3 Hct 40.7 MCV 89.8 MCH 29.4 MCHC 32.7 RDW 13.6 Plt Count 202 MPV 9.9 Immature Gran % (Auto) 0.3 Neut % (Auto) 47.7 Lymph % (Auto) 33.6 Clinch % (Auto) 12.7 H Eos % (Auto) 4.6 H Baso % (Auto) 1.1 Lymph # (Auto) 2.64 Clinch # (Auto) 1.0 H Eos # (Auto) 0.4 H Baso # (Auto) 0.1 Abs Immat Gran (auto) 0.02 Absolute Neuts (auto) 3.8 Absolute Nucleated RBC 0.000 Nucleated RBC % 0.0 Sodium 135 L Potassium 3.7 Chloride 100 Carbon Dioxide 30 Anion Gap 5 BUN 25 H Creatinine 0.83 Estim Creat Clear Calc 32 Estimated GFR > 60 Glucose 86 Calcium 9.2 Magnesium 2.1 Total Bilirubin 1.9 H AST 28 ALT 18 Alkaline Phosphatase 72 Total Protein 7.1 Albumin 4.0 Free T4 1.31 Total T3 1.02 Discharge Plan Discharge Attending physician on discharge: Shiela Ashford Consulting providers: Daniel Fuller Discharging Clinician: Shiela Ashford Anticipated Discharge Date/Time: 11/26/24 12:13 Patient Disposition: Home Activity: as tolerated Diet: as tolerated Patient Instructions: Antibiotic Form, Heart Failure (GEN), Urinary Tract Infection in Women (GEN), Urinary Tract Infection in Older Adults (GEN) Patient Language: Algerian Stand Alone Forms: General Discharge Information Follow-up/Referrals: Carmenza Fernandez MD [Primary Care Provider, Family Practice] Referral Note: F/u with PCP in 3-5 days Daniel Fuller MD [Physician, Cardiology] Referral Note: F/u with cardiology as instructed Discharge Medications: New isosorbide mononitrate 30 mg Tablet Extended Release 24 Hr 30 mg PO QAM 30 Days Qty: 30 1RF ciprofloxacin HCl 250 mg Tablet 250 mg PO Q12HR 1 Days Qty: 2 0RF Continued doxepin 10 mg capsule 10 mg PO QHS Qty: 30 2RF Eliquis 2.5 mg tablet 5 mg PO Q12H amlodipine 5 mg tablet 5 mg PO DAILY losartan 50 mg tablet 50 mg PO DAILY metoprolol succinate 50 mg tablet extended release 24 hr 50 mg PO DAILY nitroglycerin 0.4 mg tablet, sublingual 0.4 mg sublingual Q5M PRN (Reason: chest pain) Rx Instructions: do not exceed 3 doses per episode timolol maleate 0.5 % drops 1 drp EACH EYE DAILY tramadol 50 mg tablet 50 mg PO Q12H PRN (Reason: pain) Qty: 14 0RF Patient Comments: new script, unsure which dose is correct. has not taken yet. 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
--- NOTE | 2024-11-27 10:30 | PC.NURSE ---
Pt. family member asked RN if pt. needs a follow up UA. RN instructed family to contact PCP over this matter.
== END 2024-11-26 13:28 | disposition home or self-care (01) | DRG 291 ==
LOC: ANHED 21:12 → ANHIMU 11-25 00:11
PROVIDERS: Emergency Medicine; Nurse Practitioner; Admitting Provider Internal Medicine; Emergency Provider Student in an Organized Health Care Education/Training Program; PCP Family Medicine; Visit Provider Internal Medicine
DX: I11.0 Hypertensive heart disease with heart failure (principal); I50.33 Acute on chronic diastolic (congestive) heart failure; I48.20 Chronic atrial fibrillation, unspecified; N39.0 Urinary tract infection, site not specified; I69.354 Hemiplegia and hemiparesis following cerebral infarction affecting left non-dominant side; I25.10 Atherosclerotic heart disease of native coronary artery without angina pectoris; E87.6 Hypokalemia; E78.5 Hyperlipidemia, unspecified; M25.512 Pain in left shoulder; G47.33 Obstructive sleep apnea (adult) (pediatric); H40.9 Unspecified glaucoma; Z96.653 Presence of artificial knee joint, bilateral; Z20.822 Contact with and (suspected) exposure to COVID-19; Z95.5 Presence of coronary angioplasty implant and graft; Z79.01 Long term (current) use of anticoagulants; I25.2 Old myocardial infarction
CPT/HCPCS: 36415; 53060; 71046; 80048; 80053; 81001; 82248; 83690; 83735; 83880; 84439; 84443; 84480; 84484; 85025; 85027; 85380; 85610; 85730; 87040; 87086; 87186; 87637; 93005; 96365; 96375; 97161; A9270; C8929; G0378; J0696; J1938; J2405; Q9957